=== PATIENT | male | born 1950 | race Caucasian/White ===

== ENCOUNTER 2018-06-11 14:05 | Inpatient (IN) | payer MEDICARE, MEDICAID ==
[~2018-06-11] VITALS: Ht 185.4 cm; Wt 65.1 kg
[2018-06-11] MEDS ORDERED: CLARITIN10 M2 ORAL (14:20)
[2018-06-11] MEDS ORDERED: ACETAMINOPHEN325 M1 ORAL (14:20)
[2018-06-11] MEDS ORDERED: NORVASC5 MG ORAL (14:20)
[2018-06-11] MEDS ORDERED: FLUTICASONE PRO15 GM TOPIC (14:20)
[2018-06-11] MEDS ORDERED: LISINOPRIL10 MG ORAL (14:20)
[2018-06-11] MEDS ORDERED: DONEPEZIL HCL5 M2 ORAL (14:20)
[2018-06-11] MEDS ORDERED: PLAVIX75 MG ORAL (14:20)
[2018-06-11] MEDS ORDERED: ALLOPURINOL100 M1 ORAL (14:20)
[2018-06-11] MEDS ORDERED: LIPITOR20 MG ORAL (14:20)
[2018-06-11] MEDS ORDERED: PEPCID AC20 M2 PO (14:20)
[2018-06-11] MEDS ORDERED: COLACE100 MG/10 ORAL (14:20)
[2018-06-11] MEDS ORDERED: SYNTHROID25 MCG ORAL (14:20)
[2018-06-11] MEDS ORDERED: Albuterol ud Inhalation HHN ONE (14:30)
[2018-06-11] MEDS ORDERED: HYDROcodone/Acetamin 5/325 tab ORAL ONE (14:30)
--- NOTE | 2018-06-11 14:37 | NUR ---
ED Nurse Note: PT BROUGHT IN TO ER TODAY FROM [facility] DUE TO MISSED DIALYSIS. PT STATES HE TYPICALLY GETS DIALYSIS MWF BUT HAS NOT GONE SINCE 06/05/18. PT PRESENTS WITH LEFT UPPER ARM FISTULA. PT STATES HE "FEELS FINE." RR18 @ 98% O2 SATURATION ON RA THOUGH WHEEZING AUSCULTATED IN BILATERAL UPPER AND LOWER LOBES. NO SIGNS OF RESPIRATORY DISTRESS OR RETRACTIONS NOTED.
[2018-06-11 14:39] VITALS: BP 152/76
--- NOTE | 2018-06-11 14:39 | Emergency Room Report ---
History of Present Illness General Chief Complaint: General Complaint Source: Patient Present Illness HPI Patient presents with missed dialysis for one week. Apparently the assisted living facility where he came from cannot arrange for dialysis to occur. Because it has been a week he is sent in for evaluation with labs. Also so that dialysis be performed. The patient doesn't complain about palpitations or weakness. He still makes urine. Denies dysuria. There is also no shortness of breath. He denies chest pain or abdominal pain. No change in bowels. The patient has chronic bronchitis and uses an inhaler. He's not expectorated any phlegm with color or blood. He denies any fevers or chills. The patient also complains about low back pain. This is a chronic problem. Allergies: Coded Allergies: No Known Allergies (Unverified , 06/11/18) Patient History Past Medical History: see triage record Past Surgical History: other - fistula L upper arm Social History: Denies: smoking - prior Social History Narrative b [facility] Reviewed Nursing Documentation: PMH: Agreed; PSxH: Agreed Nursing Documentation-PMH Past Medical History: No History, Except For Hx Hypertension: Yes Hx Asthma: Yes Hx Gastrointestinal Problems: Yes - GERD Hx Dialysis: Yes - HD M/W/F Review of Systems All Other Systems: negative except mentioned in HPI Physical Exam Vital Signs Date Time Temp Pulse Resp B/P (MAP) Pulse Ox O2 Delivery O2 Flow Rate FiO2 06/11/18 14:02 98.1 70 16 157/79 98 Room Air Sp02 EP Interpretation: reviewed, normal General Appearance: well appearing, no apparent distress, GCS 15, thin Head: normocephalic, atraumatic Eyes: bilateral eye PERRL, bilateral eye EOMI, bilateral eye conjunctivae pale , bilateral eye other - exopthalmos ENT: moist mucus membranes Neck: supple Respiratory: lungs clear, normal breath sounds Cardiovascular #1: regular rate, rhythm Cardiovascular #2: 2+ radial (R), 2+ radial (L) - fistula with thrill Gastrointestinal: normal inspection, normal bowel sounds, non tender, no mass, non-distended, scaphoid Musculoskeletal: back normal, gait/station normal, normal range of motion Neurologic: alert, oriented x3, grossly normal Psychiatric: mood/affect normal Skin: normal inspection, warm/dry Medical Decision Making Diagnostic Impression: Primary Impression: ESRD needing dialysis Additional Impressions: Elevated troponin Bronchospasm ER Course Patient presents with one week of missed dialysis. Differential includes electro right imbalance, pulmonary edema, uremia, acute myocardial infarction amongst others. Clinically he is not in heart failure at this time. Evaluation will be with EKG, chest x-ray and labs. The patient will be given a breathing treatment and also [place] for his chronic back pain. EKG with nonspecific ST-T wave changes and left atrial enlargement left ventricular hypertrophy. Chest x-ray with mild reversal of flow suggesting mild pulmonary congestion. Labs significant for potassium of 5.2 and end-stage renal disease. Troponin was elevated. Urinalysis proteinuria. Aspirin and nitroglycerin paste is given to the patient. The patient is improved after breathing treatment and also pain medication. He was evaluated by the admitting physician in the emergency department. Patient needs dialysis urgently. Potassium does not need to be treated emergently at this time. He needs to have repeat troponins and probably cardiac evaluation and echocardiogram. The patient is admitted to telemetry under the care of Dr. Calvo. Laboratory Tests Test 06/11/18 14:51 White Blood Count 4.6 K/UL (4.8-10.8) L Red Blood Count 3.30 M/UL (4.70-6.10) L Hemoglobin 10.9 G/DL (14.2-18.0) L Hematocrit 32.9 % (42.0-52.0) L Mean Corpuscular Volume 100 FL (80-99) H Mean Corpuscular Hemoglobin 32.9 PG (27.0-31.0) H Mean Corpuscular Hemoglobin Concent 33.0 G/DL (32.0-36.0) Red Cell Distribution Width 13.0 % (11.6-14.8) Platelet Count 139 K/UL (150-450) L Mean Platelet Volume 6.0 FL (6.5-10.1) L Neutrophils (%) (Auto) 58.6 % (45.0-75.0) Lymphocytes (%) (Auto) 24.3 % (20.0-45.0) Monocytes (%) (Auto) 9.1 % (1.0-10.0) Eosinophils (%) (Auto) 7.1 % (0.0-3.0) H Basophils (%) (Auto) 0.9 % (0.0-2.0) Prothrombin Time 11.2 SEC (9.30-11.50) Prothrombin Time INR 1.1 (0.9-1.1) PTT 31 SEC (23-33) Urine Color Pale yellow Urine Appearance Clear Urine pH 5 (4.5-8.0) Urine Specific [place] 1.015 (1.005-1.035) Urine Protein 4+ (NEGATIVE) H Urine Glucose (UA) 1+ (NEGATIVE) H Urine Ketones Negative (NEGATIVE) Urine Blood 3+ (NEGATIVE) H Urine Nitrite Negative (NEGATIVE) Urine Bilirubin Negative (NEGATIVE) Urine Urobilinogen Normal MG/DL (0.0-1.0) Urine Leukocyte Esterase Negative (NEGATIVE) Urine RBC 2-4 /HPF (0 - 0) H Urine WBC 0-2 /HPF (0 - 0) Urine Squamous Epithelial Cells None /LPF (NONE/OCC) Urine Bacteria Few /HPF (NONE) Sodium Level 139 MMOL/L (136-145) Potassium Level 5.2 MMOL/L (3.5-5.1) H Chloride Level 106 MMOL/L (98-107) Carbon Dioxide Level 18 MMOL/L (21-32) L Anion Gap 15 mmol/L (5-15) Blood Urea Nitrogen 89 mg/dL (7-18) H Creatinine 6.9 MG/DL (0.55-1.30) H Estimate Glomerular Filtration Rate 8.0 mL/min (>60) Glucose Level 127 MG/DL (74-106) H Calcium Level 9.3 MG/DL (8.5-10.1) Total Bilirubin 0.4 MG/DL (0.2-1.0) Aspartate Amino Transferase (AST) 15 U/L (15-37) Alanine Aminotransferase (ALT) 15 U/L (12-78) Alkaline Phosphatase 144 U/L (46-116) H Total Creatine Kinase 34 U/L (26-308) Troponin I 0.070 ng/mL (0.000-0.056) Pro-B-Type Natriuretic Peptide 15923 pg/mL (0-125) H Total Protein 7.1 G/DL (6.4-8.2) Albumin 3.6 G/DL (3.4-5.0) Globulin 3.5 g/dL Albumin/Globulin Ratio 1.0 (1.0-2.7) EKG Diagnostic Results Rate: normal Rhythm: NSR ST Segments: no acute changes - LAE, NSSTTW changes, LAD, LVH Rhythm Strip Diag. Results EP Interpretation: yes Rhythm: NSR, no PVC's, no ectopy Chest X-Ray Diagnostic Results Chest X-Ray Diagnostic Results : Chest X-Ray Ordered: Yes # of Views/Limited/Complete: 1 View Indication: Other EP Interpretation: Yes Interpretation: no effusion, no pneumothorax, other - pulm htn, slight congestion Impression: Other Electronically Signed by: Electronically signed by Rojas Donohue MD Last Vital Signs Date Time Temp Pulse Resp B/P (MAP) Pulse Ox O2 Delivery O2 Flow Rate FiO2 06/12/18 00:00 97.5 72 20 167/70 (102) 95 06/11/18 21:00 Room Air 06/11/18 14:55 21 Status: improved Disposition: ADMITTED INPATIENT Condition: Serious Rojas Donohue MD Jun 11, 2018 14:39
--- NOTE | 2018-06-11 14:40 | NUR ---
ED Nurse Note: SKIN ASSESSMENT: SKIN INTACT. NO REDNESS OR SKIN BREAKDOWN NOTED.
[2018-06-11] MEDS ORDERED: Albuterol/Ipratropium 3ml neb HHN PRN (15:00)
--- NOTE | 2018-06-11 15:09 | History and Physical ---
History of Present Illness General Date patient seen: Jun 11, 2018 Time patient seen: 15:00 Reason for Hospitalization: General Complaint Present Illness HPI 68 year old man with history of ESRD on M/W/F, anemia of renal failure, hypertension with hypertensive heart disease, Asthma, GERD, mild dementia, depression, schizoaffective disorder who was sent in from [facility] for medical evaluation. The patient has not had dialysis since - per [facility] doctor, arrangements for outpatient HD had not been made during most recent hospitalization. Patient denies any chest pain, palpitations , dyspnea, cough. He still produces urine and was able to provide a urine sample in the ED. Labs are pending at the time of admission. Social History: Current smoker Family history: No premature CAD Allergies: Coded Allergies: No Known Allergies (Unverified , 06/11/18) Medication History Scheduled Allopurinol* (Allopurinol*), 100 MG ORAL DAILY, (Reported) Amlodipine Besylate (Norvasc), 5 MG ORAL DAILY, (Reported) Atorvastatin Calcium* (Lipitor*), 20 MG ORAL BEDTIME, (Reported) Clopidogrel Bisulfate* (Plavix*), 75 MG ORAL DAILY, (Reported) Docusate Sodium (Docusate Sodium), 100 MG ORAL DAILY, (Reported) Donepezil Hcl* (Donepezil Hcl*), 5 MG ORAL DAILY, (Reported) Famotidine (Pepcid Ac), 20 MG PO DAILY, (Reported) Fluticasone Propionate (Fluticasone Propionate), 1 APPLIC TOPIC TWICE A DAY, ( Reported) Levothyroxine Sodium* (Synthroid*), 25 MCG ORAL DAILY, (Reported) Lisinopril* (Lisinopril*), 10 MG ORAL DAILY, (Reported) Loratadine (Claritin), 10 MG ORAL DAILY, (Reported) Scheduled PRN Acetaminophen* (Acetaminophen 325MG Tablet*), 325 MG ORAL Q6H PRN for For Pain, (Reported) Patient History Healthcare decision maker Resuscitation status Advanced Directive on File Review of Systems Constitutional: Denies: chills, fever Eye: Denies: eye pain, blurred vision ENT: Denies: ear pain Respiratory: Denies: cough Cardiovascular: Denies: chest pain, edema, palpitations Gastrointestinal: Denies: abdominal pain, constipation Musculoskeletal: Reports: back pain Skin: Denies: rash Neurological: Denies: headache, numbness, paresthesia, seizure Physical Exam General Appearance: no apparent distress, alert HEENT: atraumatic, anicteric, mucous membranes moist Neck: normal alignment, supple, normal inspection Respiratory/Chest: lungs clear, normal breath sounds, no respiratory distress, no accessory muscle use Cardiovascular/Chest: normal rate, regular rhythm Abdomen: non tender, soft, no organomegaly, no mass Extremities: non-tender, normal inspection 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: engine 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 II-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 grossly normal, no motor/sensory deficits, abnormal gait , alert, oriented x 3 Last 24 Hour Vital Signs Date Time Temp Pulse Resp B/P (MAP) Pulse Ox O2 Delivery O2 Flow Rate FiO2 06/11/18 14:39 72 18 Room Air 06/11/18 14:39 98.2 72 18 152/76 98 Room Air 06/11/18 14:02 98.1 70 16 157/79 98 Room Air Height (Feet): 6 Height (Inches): 1.00 Weight (Pounds): 151 Medications Current Medications Medications (Trade) Dose Ordered Sig/Sobia Route PRN Reason Start Time Stop Time Status Last Admin Dose Admin Acetaminophen (Tylenol) 650 mg Q4H PRN ORAL Mild Pain (Pain Scale 1-3) 06/11/18 15:00 07/11/18 14:59 UNV Albuterol/ Ipratropium (Albuterol/ Ipratropium) 3 ml Q4HRT PRN HHN Shortness of Breath 06/11/18 15:00 06/16/18 14:59 UNV Dextrose (Dextrose 50%) 25 ml Q30M PRN IV Hypoglycemia 06/11/18 15:00 07/11/18 14:59 UNV Dextrose (Dextrose 50%) 50 ml Q30M PRN IV Hypoglycemia 06/11/18 15:00 07/11/18 14:59 UNV Diphenhydramine HCl (Benadryl) 25 mg Q6H PRN ORAL Itching/Pruritis 06/11/18 15:00 07/11/18 14:59 UNV Docusate Sodium (Colace) 100 mg EVERY 12 HOURS ORAL 06/11/18 21:00 07/11/18 20:59 UNV Heparin Sodium (Porcine) (Heparin 5000 units/ml) 5,000 units EVERY 12 HOURS SUBQ 06/11/18 21:00 07/11/18 20:59 UNV Ondansetron HCl (Zofran) 4 mg Q6H PRN IVP Nausea & Vomiting 06/11/18 15:00 07/11/18 14:59 UNV Assessment/Plan Assessment: #ESRD on HD M/W/F, missed last 2 sessions #Hypertensive nephropathy -admit to medical service -await labs including K -check CXR although clinically does not appear to be volume overloaded -Nephrology consulted #Essential HTN #Hypertensive heart disease #Hyperlipidemia -continue outpatient anti-hypertensive regimen including lisinopril and amlodipine -monitor blood pressures #Dementia, mild #Schizophrenia #Depression -continue supportive care -frequent orienting -fall, aspiration precautions -continue Aricept #Hypothyroidism -continue levothyroxine INPATIENT level of care is warranted for this patient because patient is a 60 year old with ESRD who presents with multiple missed HD sessions. I have a high level of concern because patient has not had HD. Patient is at high risk for severe hyperkalemia, uremia. Plan of care/treatment include Urgent HD. Patient care is expected to be greater than 2 midnights. Disposition: Once the patient is stable to leave the hospital, I anticipate the patient will likely be discharged to the following environment: SNF Estimated discharge date: TBD MIPS (Merit-based Incentive Payment System) Applicable CPT: 84357, 10187 CHECK ALL THAT ARE MET: Measure #5 (CHF): All ages. Prescribe DAYRON/ARB upon discharge for patients with left ventricular systolic dysfunction. If not, the reason is clearly documented in the medical chart. Measure #8 (CHF): All ages. Prescribe a beta katey upon discharge for patients with left ventricular systolic dysfunction. If not, the reason is clearly documented in the medical chart. Measure #47: Advance care plan or surrogate decision maker documented in the medical record. Measure #130 The provider has documented, updated, or reviewed the patients current medication list and has documented it in the patients note. Measure #374 (All): Send report to referring provider. Measure #407(Sepsis due to MSSA bacteremia): Age 18+ Patient treated with a beta-lactam antibiotic (Nafcillin, Oxacillin or Cefazolin) as definitive therapy. MEDICAL COMPLEXITY High complexity medical decision making (need 2/3 categories) Problem - need 4 points Acute/new problem with new plan for workup (4 points, 1 max) Acute/new problem without additional workup (3 points, 1 max) Unstable chronic problem actively being managed (2 point each, 2 max) Stable chronic problem actively being managed (1 point each, 2 max) Self-limited/transient process (constipation, muscle ache, etc) (1 point each , 2 max) Data - need 4 points Reviewed labs/imaging studies (1 points, 2 max) Independent review of imaging (EKG, xrays, etc) (2 points, 2 max) Discussed case with consult/other MD/RN (2 points, 2 max) High Risk - qualify if have one of the following: Severe exacerbation of acute problem, acute mental status change, IV narcotics , monitoring drug levels (vancomycin, INR, tacrolimus etc) I spent 70 minutes on this patient's case, and 35 minutes was dedicated to counseling and/or care coordination. Time of note may not reflect time of encounter. David Garcia MD Jun 11, 2018 15:09
--- NOTE | 2018-06-11 15:10 | Diagnostic Imaging Report ---
Indication: Chest pain Technique: XRAY Chest 1v Comparison: None Findings: Heart is enlarged. A cutaneous ICD is noted. There is central pulmonary vascular congestion and slight haziness of the pulmonary vascularity. There is patchy opacification at the right base and a small right pleural effusion. There is no evidence of pneumothorax. Osseous structures demonstrate no acute abnormality. There are mild degenerative changes in the spine. Impression: Cardiomegaly with findings suggestive of mild interstitial edema/CHF. Small pleural effusion. Patchy opacities at the right base thought to be related to compressive atelectasis. Pneumonia should be excluded clinically. Subcutaneous ICD noted.
[2018-06-11 15:14] LABS: APPEARANCE,URINE CLEAR; BILIRUBIN, URINE NEGATIVE (NEGATIVE); COLOR,URINE PALE YELLOW; GLUCOSE, URINE (UA) 1+ (NEGATIVE); KETONES,URINE NEGATIVE (NEGATIVE); LEUKOCYTE ESTERASE ,URINE NEGATIVE (NEGATIVE); NITRITE,URINE NEGATIVE (NEGATIVE); PH,URINE 5 (4.5-8.0); PROTEIN,URINE 4+ (NEGATIVE); UROBILINOGEN,URINE NORMAL MG/DL (0.0-1.0)
[2018-06-11 15:16] LABS: BASOPHILS % (AUTO) 0.9 % (0.0-2.0); EOSINOPHILS % (AUTO) 7.1 % (0.0-3.0); HEMATOCRIT 32.9 % (42.0-52.0); HEMOGLOBIN 10.9 G/DL (14.2-18.0); LYMPHOCYTES % (AUTO) 24.3 % (20.0-45.0); MEAN CORPUSCULAR VOLUME 100 FL (80-99); MONOCYTES % (AUTO) 9.1 % (1.0-10.0); NEUTROPHILS % (AUTO) 58.6 % (45.0-75.0); PLATELET COUNT 139 K/UL (150-450); WHITE BLOOD COUNT 4.6 K/UL (4.8-10.8)
[2018-06-11 15:19] LABS: INR 1.1 (0.9-1.1)
--- NOTE | 2018-06-11 15:25 | Consultation ---
Consult Note Consult Note asked to eval for dialysis management 68 year old man with history of ESRD on M/W/F, anemia of renal failure, hypertension with hypertensive heart disease, Asthma, GERD, mild dementia, depression, schizoaffective disorder who was sent in from [facility] for medical evaluation. The patient has not had dialysis since - per [facility] doctor, arrangements for outpatient HD had not been made during most recent hospitalization. Patient denies any chest pain, palpitations , dyspnea, cough. He still produces urine and was able to provide a urine sample in the ED. Labs are pending at the time of admission. 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
[2018-06-11 15:32] LABS: ANION GAP 15 mmol/L (5-15); BLOOD UREA NITROGEN 89 mg/dL (7-18); CALCIUM 9.3 MG/DL (8.5-10.1); CARBON DIOXIDE 18 MMOL/L (21-32); CHLORIDE 106 MMOL/L (98-107); CREATININE 6.9 MG/DL (0.55-1.30); POTASSIUM 5.2 MMOL/L (3.5-5.1); SODIUM 139 MMOL/L (136-145)
[2018-06-11 15:42] LABS: ALANINE AMINOTRANSFERASE 15 U/L (12-78); ALBUMIN 3.6 G/DL (3.4-5.0); ALKALINE PHOSPHATASE 144 U/L (46-116); ASPARTATE AMINO TRANSFERASE 15 U/L (15-37); BILIRUBIN,TOTAL 0.4 MG/DL (0.2-1.0); CREATINE KINASE 34 U/L (26-308)
[2018-06-11] MEDS ORDERED: Nitroglycerin 2% oint pkt TOPIC ONE (15:45)
[2018-06-11 16:00] VITALS: BP 167/87
--- NOTE | 2018-06-11 16:10 | NUR ---
ED Nurse Note: TELE UNIT CALLED FOR PT TRANSFER. REPORT GIVEN TO KRISTIE QUIÑONES. PT TAKEN UP TO TELE UNIT VIA GURNEY ON [facility] [employer] ALONG WITH ALL BELONGINGS ACCOMPANIED BY PRIMARY RN AND EMT. VSS.
--- NOTE | 2018-06-11 16:25 | NUR ---
NURSE NOTES: Received report from Bety RN from ED. Pt AOX4 and steady on feet. Denies pain. No signs of distress noted. Bed in lowest position and locked. classroom monitor applied. IV in RAC 20G SL intact and patent. Left upper arm fistula noted with thrill/bruit. Pt on Room air. Belonging list reviewed with ED RN. Will continue to plan of care.
--- NOTE | 2018-06-11 16:30 | NUR ---
NURSE NOTES: V/S: 169/88, p 71, R 18, T 97.4, O2 SAT 97% on RA
--- NOTE | 2018-06-11 16:50 | NUR ---
NURSE NOTES: Noted pt smoking in the bathroom locked. Called security and placed cigarette in nursing station. Instructed pt for non-smoking policy in the hospital.
--- NOTE | 2018-06-11 17:50 | NUR ---
NURSE NOTES: Received report from KRISTIE Nava. Patient in resting in bed, A/O x4. Showing no signs of acute distress. Respiration even and non labored on room air. No SOB noted. Patient has fistula on his left arm for dialysis. Call light and bed side table within reach. Bed in lowest position. Bed alarm on and wheels locked. Will continue plan of care.
--- NOTE | 2018-06-11 18:01 | NUR ---
HAND-OFF: Report given to Lacey FLOWERS. Pt remains stable.
--- NOTE | 2018-06-11 18:01 | NUR ---
NURSE NOTES: [facility] dialysis called for scheduling HD on 06/12/17. Spoke to Nixon at [facility] dialysis center
[2018-06-11] MEDS: Docusate 100mg cap ORAL SCH (18:12)
[2018-06-11 18:47] VITALS: BP 150/82
--- NOTE | 2018-06-11 19:13 | NUR ---
HAND-OFF: Report given to KRISTIE Burroughs.
--- NOTE | 2018-06-11 19:20 | NUR ---
NURSE NOTES: received pt in stable condition, no acute distress noted, safety precaution in place, will make rounds to assure pt safety.
[2018-06-11 20:00] VITALS: BP 160/88
[2018-06-11] MEDS: Donepezil 5mg Tab ORAL SCH (20:36)
[2018-06-11] MEDS: Atorvastatin 20mg tab ORAL SCH (20:36)
[2018-06-11] MEDS: Heparin 5000 units/ml inj SUBQ SCH (20:40)
[2018-06-11] MEDS ORDERED: Docusate 100mg cap ORAL SCH (21:00)
--- NOTE | 2018-06-11 23:11 | Initial Psychiatric Evaluation ---
Psychiatry Consultation Psychiatry Consultation Chief Complaint: General Complaint History of Present Illness: 68 year old man with history of schizoaffective disorder, anemia of renal failure, hypertension with hypertensive heart disease, Asthma, GERD, and esrf who was admitted for medical stabilization. the pt pw depressed mood, anhedonia , low energy, insomnia and anxiety. Allergies: Coded Allergies: No Known Allergies (Unverified , 06/11/18) Past Psychiatric History: schizoaffective do depression Medical History: see above Substance Abuse History: none Medication History Scheduled Allopurinol* (Allopurinol*), 100 MG ORAL DAILY, (Reported) Amlodipine Besylate (Norvasc), 5 MG ORAL DAILY, (Reported) Atorvastatin Calcium* (Lipitor*), 20 MG ORAL BEDTIME, (Reported) Clopidogrel Bisulfate* (Plavix*), 75 MG ORAL DAILY, (Reported) Docusate Sodium (Docusate Sodium), 100 MG ORAL DAILY, (Reported) Donepezil Hcl* (Donepezil Hcl*), 5 MG ORAL DAILY, (Reported) Famotidine (Pepcid Ac), 20 MG PO DAILY, (Reported) Fluticasone Propionate (Fluticasone Propionate), 1 APPLIC TOPIC TWICE A DAY, ( Reported) Levothyroxine Sodium* (Synthroid*), 25 MCG ORAL DAILY, (Reported) Lisinopril* (Lisinopril*), 10 MG ORAL DAILY, (Reported) Loratadine (Claritin), 10 MG ORAL DAILY, (Reported) Scheduled PRN Acetaminophen* (Acetaminophen 325MG Tablet*), 325 MG ORAL Q6H PRN for For Pain, (Reported) Patient History History Provided By: Patient, Medical Record, PMD Objective Data Height (Feet): 6 Height (Inches): 1.00 Weight (Pounds): 147 Appearance: well groomed Behavior Mannerisms: good eye contact Affect: constricted Mood: depressed Speech: clear Thought Process: logical Suicidal Ideation: not present Assessment/Plan Problem List: (1) MDD (major depressive disorder), recurrent episode ICD Codes: F33.9 - Major depressive disorder, recurrent, unspecified SNOMED: 195377894 (2) Anxiety disorder ICD Codes: F41.9 - Anxiety disorder, unspecified SNOMED: 951882124 Treatment Plan: Lexapro 10mg po qam Remeron 7.5mg po qhs provide ro/st Farhadi,Pantea MD Jun 11, 2018 23:11
[2018-06-12] VITALS: BP 167/70
--- NOTE | 2018-06-12 00:48 | NUR ---
NURSE NOTES: pt in bed sleeping, no acute distress no c/o discomfort. safety precautions in place. will continue to monitor
[2018-06-12 04:00] VITALS: BP 158/80
[2018-06-12] MEDS: Levothyroxine 25mcg tab ORAL SCH (05:46)
[2018-06-12 06:28] LABS: BASOPHILS % (AUTO) 0.6 % (0.0-2.0); EOSINOPHILS % (AUTO) 9.2 % (0.0-3.0); HEMATOCRIT 30.4 % (42.0-52.0); HEMOGLOBIN 10.1 G/DL (14.2-18.0); LYMPHOCYTES % (AUTO) 20.5 % (20.0-45.0); MEAN CORPUSCULAR VOLUME 99 FL (80-99); MONOCYTES % (AUTO) 6.4 % (1.0-10.0); NEUTROPHILS % (AUTO) 63.3 % (45.0-75.0); PLATELET COUNT 139 K/UL (150-450); RED BLOOD COUNT 3.07 M/UL (4.70-6.10); RED CELL DISTRIBUTION WIDTH 12.7 % (11.6-14.8); WHITE BLOOD COUNT 5.1 K/UL (4.8-10.8)
--- NOTE | 2018-06-12 06:47 | NUR ---
NURSE NOTES: pt reminds in stable condition, no acute distress, no change in condition during my shift, all needs met during my shift. will endorse pt to incoming nurse. Addendum: 06/12/18 at 0700 by Heike Etienne RN remains
[2018-06-12 06:53] LABS: % IRON SATURATION 39 % (15-50); IRON 74 ug/dL (50-175); TOTAL IRON BINDING CAPACITY 191 ug/dL (250-450)
[2018-06-12 06:59] LABS: ALANINE AMINOTRANSFERASE 15 U/L (12-78); ALBUMIN 3.4 G/DL (3.4-5.0); ALBUMIN/GLOBULIN RATIO 1.1 (1.0-2.7); ALKALINE PHOSPHATASE 122 U/L (46-116); ANION GAP 15 mmol/L (5-15); ASPARTATE AMINO TRANSFERASE 15 U/L (15-37); BILIRUBIN,TOTAL 0.4 MG/DL (0.2-1.0); BLOOD UREA NITROGEN 89 mg/dL (7-18); CALCIUM 9.3 MG/DL (8.5-10.1); CARBON DIOXIDE 19 MMOL/L (21-32); CHLORIDE 107 MMOL/L (98-107); CHOLESTEROL 95 MG/DL (< 200); CREATININE 6.7 MG/DL (0.55-1.30); HDL CHOLESTEROL 40 MG/DL (40-60); SODIUM 140 MMOL/L (136-145); TRIGLYCERIDES 72 MG/DL (30-150)
[2018-06-12 07:14] LABS: PHOSPHORUS 4.3 MG/DL (2.5-4.9)
--- NOTE | 2018-06-12 07:25 | NUR ---
NURSE NOTES: Received report from KRISTIE Burroughs. Pt AOX4. No signs of distress noted. Bed in lowest position and locked. desk monitor applied. IV in RAC 20G SL intact and patent. Left upper arm fistula noted with thrill/bruit. Pt on Room air. Will continue to plan of care.
--- NOTE | 2018-06-12 07:28 | NUR ---
HAND-OFF: Report given to KRISTIE Alicea.
[2018-06-12 07:56] VITALS: BP 182/90
[2018-06-12] MEDS: Allopurinol 100mg Tab ORAL SCH (08:14)
[2018-06-12] MEDS: Lisinopril 10mg tab ORAL SCH (08:14)
[2018-06-12] MEDS: Docusate 100mg cap ORAL SCH ×3 (08:14→17:17)
[2018-06-12] MEDS ORDERED: Donepezil 5mg Tab ORAL SCH (09:00)
[2018-06-12] MEDS ORDERED: Lisinopril 10mg tab ORAL SCH (09:00)
[2018-06-12] MEDS: Heparin 5000 units/ml inj SUBQ SCH ×2 (09:00→21:06)
--- NOTE | 2018-06-12 11:57 | NUR ---
CASE MANAGEMENT:REVIEW 68 YR OLD MALE BIBA FROM [facility] CC: MISSED DIALYSIS SI: ESRD.DIALYSIS BRONCHOSPASM. ELEVATED TROPONIN 98.0 70 16 157/79 98% ON RA PLT-139 K+5.2 BUN+89 TROPONIN(+) 0.070 IS: NORCO PO ALBUTEROL HHN ASA PO SCHEDULE DIALYSIS : TO TELEMETRY
[2018-06-12 12:00] VITALS: BP 149/76
--- NOTE | 2018-06-12 12:07 | General Progress Note ---
Assessment/Plan Assessment: #ESRD on HD M/W/F, last session on 06/05 #Hypertensive nephropathy #Hyperkalemia, present on admission #Metabolic acidosis, present on admission -continue inpatient level of care -plan for HD today, spoke with Dr. Huynh -continue to monitor BMP -continue to monitor mentation for evidence of uremia -continue to monitor for evidence of fluid overload -Spoke to bilingual case manager about patient's need for outpatient HD to be arranged #Essential HTN, uncontrolled likely due to missed HD #Hypertensive heart disease #Hyperlipidemia -continue outpatient anti-hypertensive regimen including lisinopril and amlodipine -continue to monitor blood pressure #Anemia of ESRD, stable H&H -continue to monitor CBC -not a candidate for ESAs at this time #Dementia, mild #Schizophrenia #Depression -continue supportive care -frequent orienting -fall, aspiration precautions -continue Aricept -Psychiatry eval appreciated #Hypothyroidism -continue levothyroxine -check free T4 in AM INPATIENT level of care is warranted for this patient because patient is a 60 year old with ESRD who presents with multiple missed HD sessions. I have a high level of concern because patient has not had HD. Patient is at high risk for severe hyperkalemia, uremia. Plan of care/treatment include Urgent HD. Patient care is expected to be greater than 2 midnights. Disposition: Once the patient is stable to leave the hospital, I anticipate the patient will likely be discharged to the following environment: SNF Estimated discharge date: TB MIPS (Merit-based Incentive Payment System) Applicable CPT: 30431, 69584 CHECK ALL THAT ARE MET: Measure #5 (CHF): All ages. Prescribe DAYRON/ARB upon discharge for patients with left ventricular systolic dysfunction. If not, the reason is clearly documented in the medical chart. Measure #8 (CHF): All ages. Prescribe a beta katey upon discharge for patients with left ventricular systolic dysfunction. If not, the reason is clearly documented in the medical chart. Measure #47: Advance care plan or surrogate decision maker documented in the medical record. Measure #130 The provider has documented, updated, or reviewed the patients current medication list and has documented it in the patients note. Measure #374 (All): Send report to referring provider. Measure #407(Sepsis due to MSSA bacteremia): Age 18+ Patient treated with a beta-lactam antibiotic (Nafcillin, Oxacillin or Cefazolin) as definitive therapy. MEDICAL COMPLEXITY High complexity medical decision making (need 2/3 categories) Problem - need 4 points Acute/new problem with new plan for workup (4 points, 1 max) Acute/new problem without additional workup (3 points, 1 max) Unstable chronic problem actively being managed (2 point each, 2 max) Stable chronic problem actively being managed (1 point each, 2 max) Self-limited/transient process (constipation, muscle ache, etc) (1 point each , 2 max) Data - need 4 points Reviewed labs/imaging studies (1 points, 2 max) Independent review of imaging (EKG, xrays, etc) (2 points, 2 max) Discussed case with consult/other MD/RN (2 points, 2 max) High Risk - qualify if have one of the following: Severe exacerbation of acute problem, acute mental status change, IV narcotics , monitoring drug levels (vancomycin, INR, tacrolimus etc) I spent 70 minutes on this patient's case, and 35 minutes was dedicated to counseling and/or care coordination. Time of note may not reflect time of encounter. Subjective Date patient seen: Jun 12, 2018 Time patient seen: 12:00 Constitutional: Denies: chills, fever Cardiovascular: Denies: chest pain Respiratory: Denies: cough Gastrointestinal/Abdominal: Denies: abdomen distended, abdominal pain, nausea Allergies: Coded Allergies: No Known Allergies (Unverified , 06/11/18) Subjective Medicine follow up for ESRD, metabolic acidosis, hyperkalemia, uncontrolled HTN. Patent awaiting HD, planned for today Objective Last 24 Hour Vital Signs Date Time Temp Pulse Resp B/P (MAP) Pulse Ox O2 Delivery O2 Flow Rate FiO2 06/12/18 12:00 97.2 66 20 149/76 (100) 97 06/12/18 09:00 Room Air 06/12/18 09:00 Room Air 06/12/18 08:45 97.9 06/12/18 08:14 182/90 06/12/18 08:13 76 182/90 06/12/18 08:02 90 06/12/18 07:56 97.9 76 20 182/90 (120) 95 06/12/18 04:00 69 06/12/18 04:00 97.5 72 20 158/80 (106) 97 06/12/18 00:00 64 06/12/18 00:00 97.5 72 20 167/70 (102) 95 06/11/18 21:00 Room Air 06/11/18 21:00 Room Air 06/11/18 20:00 57 06/11/18 20:00 97.4 62 20 160/88 (112) 99 06/11/18 18:47 150/82 (104) 06/11/18 18:13 76 152/66 06/11/18 17:06 62 06/11/18 16:09 98.3 76 17 152/66 99 Room Air 06/11/18 16:03 155/63 06/11/18 16:00 98.0 71 20 167/87 (113) 97 06/11/18 14:55 80 18 100 Room Air 21 06/11/18 14:47 36 06/11/18 14:47 78 18 100 Room Air 21 06/11/18 14:39 72 18 Room Air 06/11/18 14:39 98.2 72 18 152/76 98 Room Air 06/11/18 14:02 98.1 70 16 157/79 98 Room Air Intake and Output 06/11/18 06/12/18 19:00 07:00 Intake Total 240 ml Output Total 300 ml Balance -60 ml Intake Oral 240 ml Output Urine Total 300 ml # Voids 1 Laboratory Tests 06/11/18 14:51: White Blood Count 4.6L, Red Blood Count 3.30L, Hemoglobin 10.9L, Hematocrit 32.9L, Mean Corpuscular Volume 100H, Mean Corpuscular Hemoglobin 32.9H, Mean Corpuscular Hemoglobin Concent 33.0, Red Cell Distribution Width 13.0, Platelet Count 139L, Mean Platelet Volume 6.0L, Neutrophils (%) (Auto) 58.6, Lymphocytes (%) (Auto) 24.3, Monocytes (%) (Auto) 9.1, Eosinophils (%) (Auto) 7.1H, Basophils (%) (Auto) 0.9, Prothrombin Time 11.2, Prothromb Time International Ratio 1.1, Activated Partial Thromboplast Time 31, Urine Color Pale yellow, Urine Appearance Clear, Urine pH 5, Urine Specific [place] 1.015, Urine Protein 4+H, Urine Glucose (UA) 1+H, Urine Ketones Negative, Urine Blood 3+H, Urine Nitrite Negative, Urine Bilirubin Negative, Urine Urobilinogen Normal, Urine Leukocyte Esterase Negative, Urine RBC 2-4H, Urine WBC 0-2, Urine Squamous Epithelial Cells None, Urine Bacteria Few, Sodium Level 139, Potassium Level 5.2H, Chloride Level 106, Carbon Dioxide Level 18L, Anion Gap 15, Blood Urea Nitrogen 89H, Creatinine 6.9H, Estimat Glomerular Filtration Rate 8.0, Glucose Level 127H, Calcium Level 9.3, Total Bilirubin 0.4, Aspartate Amino Transf (AST/ SGOT) 15, Alanine Aminotransferase (ALT/SGPT) 15, Alkaline Phosphatase 144H, Total Creatine Kinase 34, Troponin I 0.070H, Pro-B-Type Natriuretic Peptide 70956R, Total Protein 7.1, Albumin 3.6, Globulin 3.5, Albumin/Globulin Ratio 1.0 06/12/18 05:15: White Blood Count 5.1, Red Blood Count 3.07L, Hemoglobin 10.1L, Hematocrit 30.4L , Mean Corpuscular Volume 99, Mean Corpuscular Hemoglobin 33.1H, Mean Corpuscular Hemoglobin Concent 33.3, Red Cell Distribution Width 12.7, Platelet Count 139L, Mean Platelet Volume 5.7L, Neutrophils (%) (Auto) 63.3, Lymphocytes (%) (Auto) 20.5, Monocytes (%) (Auto) 6.4, Eosinophils (%) (Auto) 9.2H, Basophils (%) (Auto) 0.6, Sodium Level 140, Potassium Level 5.0, Chloride Level 107, Carbon Dioxide Level 19L, Anion Gap 15, Blood Urea Nitrogen 89H, Creatinine 6.7H, Estimat Glomerular Filtration Rate 8.2, Glucose Level 70L, Calcium Level 9.3, Total Bilirubin 0.4, Aspartate Amino Transf (AST/SGOT) 15, Alanine Aminotransferase (ALT/SGPT) 15, Alkaline Phosphatase 122H, Pro-B-Type Natriuretic Peptide 29438C, Total Protein 6.6, Albumin 3.4, Globulin 3.2, Albumin/Globulin Ratio 1.1, Uric Acid 6.4, Phosphorus Level 4.3, Magnesium Level 2.2, Iron Level 74, Total Iron Binding Capacity 191L, Percent Iron Saturation 39, Unsaturated Iron Binding 117, Ferritin 465H, Gamma Glutamyl Transpeptidase 12, C-Reactive Protein, Quantitative 2.5H, Triglycerides Level 72 , Cholesterol Level 95, LDL Cholesterol 44, HDL Cholesterol 40, Cholesterol/HDL Ratio 2.4L, Vitamin B12 Level 342, Folate 17.1, Thyroid Stimulating Hormone (TSH ) 6.702H Height (Feet): 6 Height (Inches): 1.00 Weight (Pounds): 147 General Appearance: no apparent distress, alert EENT: normal ENT inspection Neck: normal alignment, normal inspection Cardiovascular: normal peripheral pulses, normal rate, regular rhythm Respiratory/Chest: chest wall non-tender, lungs clear, normal breath sounds Abdomen: non tender, soft, no organomegaly 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
--- NOTE | 2018-06-12 12:43 | Consultation ---
History of Present Illness General Chief Complaint: General Complaint Present Illness Allergies: Coded Allergies: No Known Allergies (Unverified , 06/11/18) Medication History Scheduled Allopurinol* (Allopurinol*), 100 MG ORAL DAILY, (Reported) Amlodipine Besylate (Norvasc), 5 MG ORAL DAILY, (Reported) Atorvastatin Calcium* (Lipitor*), 20 MG ORAL BEDTIME, (Reported) Clopidogrel Bisulfate* (Plavix*), 75 MG ORAL DAILY, (Reported) Docusate Sodium (Docusate Sodium), 100 MG ORAL DAILY, (Reported) Donepezil Hcl* (Donepezil Hcl*), 5 MG ORAL DAILY, (Reported) Famotidine (Pepcid Ac), 20 MG PO DAILY, (Reported) Fluticasone Propionate (Fluticasone Propionate), 1 APPLIC TOPIC TWICE A DAY, ( Reported) Levothyroxine Sodium* (Synthroid*), 25 MCG ORAL DAILY, (Reported) Lisinopril* (Lisinopril*), 10 MG ORAL DAILY, (Reported) Loratadine (Claritin), 10 MG ORAL DAILY, (Reported) Scheduled PRN Acetaminophen* (Acetaminophen 325MG Tablet*), 325 MG ORAL Q6H PRN for For Pain, (Reported) Patient History Healthcare decision maker N Resuscitation status Advanced Directive on File Physical Exam Last 24 Hour Vital Signs Date Time Temp Pulse Resp B/P (MAP) Pulse Ox O2 Delivery O2 Flow Rate FiO2 06/12/18 12:00 97.2 66 20 149/76 (100) 97 06/12/18 09:00 Room Air 06/12/18 09:00 Room Air 06/12/18 08:45 97.9 06/12/18 08:14 182/90 06/12/18 08:13 76 182/90 06/12/18 08:02 90 06/12/18 07:56 97.9 76 20 182/90 (120) 95 06/12/18 04:00 69 06/12/18 04:00 97.5 72 20 158/80 (106) 97 06/12/18 00:00 64 06/12/18 00:00 97.5 72 20 167/70 (102) 95 06/11/18 21:00 Room Air 06/11/18 21:00 Room Air 4/18/19 20:00 57 06/11/18 20:00 97.4 62 20 160/88 (112) 99 06/11/18 18:47 150/82 (104) 06/11/18 18:13 76 152/66 06/11/18 17:06 62 06/11/18 16:09 98.3 76 17 152/66 99 Room Air 06/11/18 16:03 155/63 06/11/18 16:00 98.0 71 20 167/87 (113) 97 06/11/18 14:55 80 18 100 Room Air 21 06/11/18 14:47 36 06/11/18 14:47 78 18 100 Room Air 21 06/11/18 14:39 72 18 Room Air 06/11/18 14:39 98.2 72 18 152/76 98 Room Air 06/11/18 14:02 98.1 70 16 157/79 98 Room Air Intake and Output 06/11/18 06/12/18 19:00 07:00 Intake Total 240 ml Output Total 300 ml Balance -60 ml Intake Oral 240 ml Output Urine Total 300 ml # Voids 1 Laboratory Tests Test 06/11/18 14:51 06/12/18 05:15 White Blood Count 4.6 K/UL (4.8-10.8) L 5.1 K/UL (4.8-10.8) Red Blood Count 3.30 M/UL (4.70-6.10) L 3.07 M/UL (4.70-6.10) L Hemoglobin 10.9 G/DL (14.2-18.0) L 10.1 G/DL (14.2-18.0) L Hematocrit 32.9 % (42.0-52.0) L 30.4 % (42.0-52.0) L Mean Corpuscular Volume 100 FL (80-99) H 99 FL (80-99) Mean Corpuscular Hemoglobin 32.9 PG (27.0-31.0) H 33.1 PG (27.0-31.0) H Mean Corpuscular Hemoglobin Concent 33.0 G/DL (32.0-36.0) 33.3 G/DL (32.0-36.0) Red Cell Distribution Width 13.0 % (11.6-14.8) 12.7 % (11.6-14.8) Platelet Count 139 K/UL (150-450) L 139 K/UL (150-450) L Mean Platelet Volume 6.0 FL (6.5-10.1) L 5.7 FL (6.5-10.1) L Neutrophils (%) (Auto) 58.6 % (45.0-75.0) 63.3 % (45.0-75.0) Lymphocytes (%) (Auto) 24.3 % (20.0-45.0) 20.5 % (20.0-45.0) Monocytes (%) (Auto) 9.1 % (1.0-10.0) 6.4 % (1.0-10.0) Eosinophils (%) (Auto) 7.1 % (0.0-3.0) H 9.2 % (0.0-3.0) H Basophils (%) (Auto) 0.9 % (0.0-2.0) 0.6 % (0.0-2.0) Prothrombin Time 11.2 SEC (9.30-11.50) Prothromb Time International Ratio 1.1 (0.9-1.1) Activated Partial Thromboplast Time 31 SEC (23-33) Urine Color Pale yellow Urine Appearance Clear Urine pH 5 (4.5-8.0) Urine Specific [place] 1.015 (1.005-1.035) Urine Protein 4+ (NEGATIVE) H Urine Glucose (UA) 1+ (NEGATIVE) H Urine Ketones Negative (NEGATIVE) Urine Blood 3+ (NEGATIVE) H Urine Nitrite Negative (NEGATIVE) Urine Bilirubin Negative (NEGATIVE) Urine Urobilinogen Normal MG/DL (0.0-1.0) Urine Leukocyte Esterase Negative (NEGATIVE) Urine RBC 2-4 /HPF (0 - 0) H Urine WBC 0-2 /HPF (0 - 0) Urine Squamous Epithelial Cells None /LPF (NONE/OCC) Urine Bacteria Few /HPF (NONE) Sodium Level 139 MMOL/L (136-145) 140 MMOL/L (136-145) Potassium Level 5.2 MMOL/L (3.5-5.1) H 5.0 MMOL/L (3.5-5.1) Chloride Level 106 MMOL/L (98-107) 107 MMOL/L (98-107) Carbon Dioxide Level 18 MMOL/L (21-32) L 19 MMOL/L (21-32) L Anion Gap 15 mmol/L (5-15) 15 mmol/L (5-15) Blood Urea Nitrogen 89 mg/dL (7-18) H 89 mg/dL (7-18) H Creatinine 6.9 MG/DL (0.55-1.30) H 6.7 MG/DL (0.55-1.30) H Estimat Glomerular Filtration Rate 8.0 mL/min (>60) 8.2 mL/min (>60) Glucose Level 127 MG/DL (74-106) H 70 MG/DL (74-106) L Calcium Level 9.3 MG/DL (8.5-10.1) 9.3 MG/DL (8.5-10.1) Total Bilirubin 0.4 MG/DL (0.2-1.0) 0.4 MG/DL (0.2-1.0) Aspartate Amino Transf (AST/SGOT) 15 U/L (15-37) 15 U/L (15-37) Alanine Aminotransferase (ALT/SGPT) 15 U/L (12-78) 15 U/L (12-78) Alkaline Phosphatase 144 U/L (46-116) H 122 U/L (46-116) H Total Creatine Kinase 34 U/L (26-308) Troponin I 0.070 ng/mL (0.000-0.056) Pro-B-Type Natriuretic Peptide 34000 pg/mL (0-125) H 25246 pg/mL (0-125) H Total Protein 7.1 G/DL (6.4-8.2) 6.6 G/DL (6.4-8.2) Albumin 3.6 G/DL (3.4-5.0) 3.4 G/DL (3.4-5.0) Globulin 3.5 g/dL 3.2 g/dL Albumin/Globulin Ratio 1.0 (1.0-2.7) 1.1 (1.0-2.7) Uric Acid 6.4 MG/DL (2.6-7.2) Phosphorus Level 4.3 MG/DL (2.5-4.9) Magnesium Level 2.2 MG/DL (1.8-2.4) Iron Level 74 ug/dL (50-175) Total Iron Binding Capacity 191 ug/dL (250-450) L Percent Iron Saturation 39 % (15-50) Unsaturated Iron Binding 117 ug/dL (112-346) Ferritin 465 NG/ML (8-388) H Gamma Glutamyl Transpeptidase 12 U/L (5-85) C-Reactive Protein, Quantitative 2.5 mg/dL (0.00-0.90) H Triglycerides Level 72 MG/DL (30-150) Cholesterol Level 95 MG/DL (< 200) LDL Cholesterol 44 mg/dL (<100) HDL Cholesterol 40 MG/DL (40-60) Cholesterol/HDL Ratio 2.4 (3.3-4.4) L Vitamin B12 Level 342 PG/ML (193-986) Folate 17.1 NG/ML (8.6-58.9) Thyroid Stimulating Hormone (TSH) 6.702 uiU/mL (0.358-3.740) Microbiology Date/Time Source Procedure Growth Status 06/11/18 14:51 Rectum Received Height (Feet): 6 Height (Inches): 1.00 Weight (Pounds): 147 Medications Current Medications Medications (Trade) Dose Ordered Sig/Sobia Route PRN Reason Start Time Stop Time Status Last Admin Dose Admin Acetaminophen (Tylenol) 650 mg Q4H PRN ORAL Mild Pain (Pain Scale 1-3) 06/11/18 15:00 07/11/18 14:59 06/12/18 08:15 Albuterol/ Ipratropium (Albuterol/ Ipratropium) 3 ml Q4H PRN HHN Shortness of Breath 06/11/18 15:00 06/16/18 14:59 Allopurinol (Zyloprim) 100 mg DAILY ORAL 06/12/18 09:00 07/12/18 08:59 06/12/18 08:14 Amlodipine Besylate (Norvasc) 5 mg BID ORAL 06/11/18 18:00 07/12/18 08:59 06/12/18 08:13 Atorvastatin Calcium (Lipitor) 20 mg BEDTIME ORAL 06/11/18 21:00 07/11/18 20:59 06/11/18 20:36 Clopidogrel Bisulfate (Plavix) 75 mg DAILY ORAL 06/12/18 09:00 07/12/18 08:59 06/12/18 08:13 Dextrose (Dextrose 50%) 25 ml Q30M PRN IV Hypoglycemia 06/11/18 15:00 07/11/18 14:59 Dextrose (Dextrose 50%) 50 ml Q30M PRN IV Hypoglycemia 06/11/18 15:00 07/11/18 14:59 Diphenhydramine HCl (Benadryl) 25 mg Q6H PRN ORAL Itching/Pruritis 06/11/18 15:00 07/11/18 14:59 Docusate Sodium (Colace) 100 mg TID ORAL 06/11/18 18:00 07/11/18 20:59 06/12/18 08:14 Donepezil HCl (Aricept) 5 mg QHS ORAL 06/11/18 21:00 07/12/18 08:59 06/11/18 20:36 Heparin Sodium (Porcine) (Heparin 5000 units/ml) 5,000 units EVERY 12 HOURS SUBQ 06/11/18 21:00 07/11/18 20:59 06/11/18 20:40 Levothyroxine Sodium (Synthroid) 25 mcg Q24H ORAL 06/12/18 06:30 07/12/18 06:29 06/12/18 05:46 Lisinopril (Zestril) 10 mg DAILY ORAL 06/12/18 09:00 07/12/18 08:59 06/12/18 08:14 Ondansetron HCl (Zofran) 4 mg Q6H PRN IVP Nausea & Vomiting 06/11/18 15:00 07/11/18 14:59 Pantoprazole (Protonix) 40 mg DAILY ORAL 06/11/18 17:15 07/11/18 17:14 06/12/18 08:14 Assessment/Plan Assessment: Hematology Consultation REQ MD: Iker Garcia DOS: 05/12/18 RFC: Anemia eval Reason for Hospitalization: Med eval HPI 68 year old man with history of ESRD on M/W/F, anemia of renal failure, hypertension with hypertensive heart disease, Asthma, GERD, mild dementia, depression, schizoaffective disorder who was sent in from [facility] for medical evaluation. The patient has not had dialysis since - per [facility] doctor, arrangements for outpatient HD had not been made during most recent hospitalization. Patient denies any chest pain, palpitations , dyspnea, cough. He still produces urine and was able to provide a urine sample in the ED. Labs reviewed and c/w acd, ferritin and tibc values reviewed as well. Social History: Current smoker Family history: No premature CAD Coded Allergies: No Known Allergies (Unverified , 06/11/18) Meds Allopurinol* (Allopurinol*), 100 MG ORAL DAILY, (Reported) Amlodipine Besylate (Norvasc), 5 MG ORAL DAILY, (Reported) Atorvastatin Calcium* (Lipitor*), 20 MG ORAL BEDTIME, (Reported) Clopidogrel Bisulfate* (Plavix*), 75 MG ORAL DAILY, (Reported) Docusate Sodium (Docusate Sodium), 100 MG ORAL DAILY, (Reported) Donepezil Hcl* (Donepezil Hcl*), 5 MG ORAL DAILY, (Reported) Famotidine (Pepcid Ac), 20 MG PO DAILY, (Reported) Fluticasone Propionate (Fluticasone Propionate), 1 APPLIC TOPIC TWICE A DAY, ( Reported) Levothyroxine Sodium* (Synthroid*), 25 MCG ORAL DAILY, (Reported) Lisinopril* (Lisinopril*), 10 MG ORAL DAILY, (Reported) Loratadine (Claritin), 10 MG ORAL DAILY, (Reported) Scheduled PRN Acetaminophen* (Acetaminophen 325MG Tablet*), 325 MG ORAL Q6H PRN for For Pain, (Reported) Patient History Healthcare decision maker Resuscitation status Advanced Directive on File ROS Constitutional: Denies: chills, fever Eye: Denies: eye pain, blurred vision ENT: Denies: ear pain Respiratory: Denies: cough Cardiovascular: Denies: chest pain, edema, palpitations Gastrointestinal: Denies: abdominal pain, constipation Musculoskeletal: Reports: back pain Skin: Denies: rash Neurological: Denies: headache, numbness, paresthesia PE General Appearance: no apparent distress, alert HEENT: atraumatic, anicteric, mucous membranes moist Neck: normal alignment, supple, normal inspection Respiratory/Chest: lungs clear, normal breath sounds Cardiovascular/Chest: normal rate, regular rhythm Abdomen: non tender, soft, no organomegaly, no mass Extremities: non-tender, normal inspection 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, no motor/sensory deficits Last 24 Hour Vital Signs Date Time Temp Pulse Resp B/P (MAP) Pulse Ox O2 Delivery O2 Flow Rate FiO2 06/12/18 12:00 97.2 66 20 149/76 (100) 97 06/12/18 09:00 Room Air 06/12/18 09:00 Room Air 06/12/18 08:45 97.9 06/12/18 08:14 182/90 06/12/18 08:13 76 182/90 06/12/18 08:02 90 06/12/18 07:56 97.9 76 20 182/90 (120) 95 06/12/18 04:00 69 06/12/18 04:00 97.5 72 20 158/80 (106) 97 06/12/18 00:00 64 06/12/18 00:00 97.5 72 20 167/70 (102) 95 06/11/18 21:00 Room Air 06/11/18 21:00 Room Air 06/11/18 20:00 57 06/11/18 20:00 97.4 62 20 160/88 (112) 99 06/11/18 18:47 150/82 (104) 06/11/18 18:13 76 152/66 06/11/18 17:06 62 06/11/18 16:09 98.3 76 17 152/66 99 Room Air 06/11/18 16:03 155/63 06/11/18 16:00 98.0 71 20 167/87 (113) 97 06/11/18 14:55 80 18 100 Room Air 21 06/11/18 14:47 36 06/11/18 14:47 78 18 100 Room Air 21 06/11/18 14:39 72 18 Room Air 06/11/18 14:39 98.2 72 18 152/76 98 Room Air 06/11/18 14:02 98.1 70 16 157/79 98 Room Air Height (Inches): 1.00 Weight (Pounds): 151 Medications Current Medications Medications (Trade) Dose Ordered Sig/Sobia Route PRN Reason Start Time Stop Time Status Last Admin Dose Admin Acetaminophen (Tylenol) 650 mg Q4H PRN ORAL Mild Pain (Pain Scale 1-3) 06/11/18 15:00 07/11/18 14:59 UNV Albuterol/ Ipratropium (Albuterol/ Ipratropium) 3 ml Q4HRT PRN HHN Shortness of Breath 06/11/18 15:00 06/16/18 14:59 UNV Dextrose (Dextrose 50%) 25 ml Q30M PRN IV Hypoglycemia 06/11/18 15:00 07/11/18 14:59 UNV Dextrose (Dextrose 50%) 50 ml Q30M PRN IV Hypoglycemia 06/11/18 15:00 07/11/18 14:59 UNV Diphenhydramine HCl (Benadryl) 25 mg Q6H PRN ORAL Itching/Pruritis 06/11/18 15:00 07/11/18 14:59 UNV Docusate Sodium (Colace) 100 mg EVERY 12 HOURS ORAL 06/11/18 21:00 07/11/18 20:59 UNV Heparin Sodium (Porcine) (Heparin 5000 units/ml) 5,000 units EVERY 12 HOURS SUBQ 06/11/18 21:00 07/11/18 20:59 UNV Ondansetron HCl (Zofran) 4 mg Q6H PRN IVP Nausea & Vomiting 06/11/18 15:00 07/11/18 14:59 UNV Assessment/Recs: # Anemia of chronic disease due to underlying chronic medical issues, multifactorial --> Anemia workup has been ordered, rule out gi bleed --> No evidence of hemolysis is noted, peripheral smear has been reviewed. --> Hgb goal >7. Transfuse prn. --> Epogen or iron at this time is not particularly indicated --> Medications have been reviewed --> evaluate with Gi team prn --> transfuse if hgb is < 7 (will trend CBC daily) --> low threshold for gi evaluation in case has occult + # ESRD on HD M/W/F, missed last 2 sessions --> Anemia panel has been reviewed and feritin is elev --> hold off on IRON and hold off on EPO unless hgb downtrends to less than 10 # Hypertensive nephropathy --> as per renal --> acei as needed per renal, bp control # Essential HTN --> cards prn, sbp goal <140 # Hyperlipidemia --> continue outpatient anti-hypertensive regimen including lisinopril and amlodipine --> monitor blood pressures # Dementia, mild # Schizophrenia --> per psych # DVT ppx with heparin is also on plavix The timing of this note does not necessarily reflect the time of the patient was seen. Greatly appreciate consultation! Shaquille Brown MD Jun 12, 2018 12:43
--- NOTE | 2018-06-12 13:36 | Cardiology Report ---
APPROVED REPORT EKG Measurement Heart [id number] ID [id number] Normal sinus rhythm Possible Left atrial enlargement Left axis deviation Left ventricular hypertrophy with QRS widening Cannot rule out Septal infarct, age undetermined Abnormal ECG
--- NOTE | 2018-06-12 13:38 | Nephrology Progress Note ---
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 anemia of ckd hypertensive kidney disease high cholestrol hypothyroidism psych disease Plan arrange for HD ,for today Renal diet per orders Subjective ROS Limited/Unobtainable: No Constitutional: Reports: malaise Objective Objective Last 24 Hour Vital Signs Date Time Temp Pulse Resp B/P (MAP) Pulse Ox O2 Delivery O2 Flow Rate FiO2 06/12/18 12:00 97.2 66 20 149/76 (100) 97 06/12/18 11:43 67 06/12/18 09:00 Room Air 06/12/18 09:00 Room Air 06/12/18 08:45 97.9 06/12/18 08:14 182/90 06/12/18 08:13 76 182/90 06/12/18 08:02 90 06/12/18 07:56 97.9 76 20 182/90 (120) 95 06/12/18 04:00 69 06/12/18 04:00 97.5 72 20 158/80 (106) 97 06/12/18 00:00 64 06/12/18 00:00 97.5 72 20 167/70 (102) 95 06/11/18 21:00 Room Air 06/11/18 21:00 Room Air 06/11/18 20:00 57 06/11/18 20:00 97.4 62 20 160/88 (112) 99 06/11/18 18:47 150/82 (104) 06/11/18 18:13 76 152/66 06/11/18 17:06 62 06/11/18 16:09 98.3 76 17 152/66 99 Room Air 06/11/18 16:03 155/63 06/11/18 16:00 98.0 71 20 167/87 (113) 97 06/11/18 14:55 80 18 100 Room Air 21 06/11/18 14:47 36 06/11/18 14:47 78 18 100 Room Air 21 06/11/18 14:39 72 18 Room Air 06/11/18 14:39 98.2 72 18 152/76 98 Room Air 06/11/18 14:02 98.1 70 16 157/79 98 Room Air Intake and Output 06/11/18 06/12/18 19:00 07:00 Intake Total 240 ml Output Total 300 ml Balance -60 ml Intake Oral 240 ml Output Urine Total 300 ml # Voids 1 Current Medications Medications (Trade) Dose Ordered Sig/Sobia Route PRN Reason Start Time Stop Time Status Last Admin Dose Admin Acetaminophen (Tylenol) 650 mg Q4H PRN ORAL Mild Pain (Pain Scale 1-3) 06/11/18 15:00 07/11/18 14:59 06/12/18 08:15 Albuterol/ Ipratropium (Albuterol/ Ipratropium) 3 ml Q4H PRN HHN Shortness of Breath 06/11/18 15:00 06/16/18 14:59 Allopurinol (Zyloprim) 100 mg DAILY ORAL 06/12/18 09:00 07/12/18 08:59 06/12/18 08:14 Amlodipine Besylate (Norvasc) 5 mg BID ORAL 06/11/18 18:00 07/12/18 08:59 06/12/18 08:13 Atorvastatin Calcium (Lipitor) 20 mg BEDTIME ORAL 06/11/18 21:00 07/11/18 20:59 06/11/18 20:36 Clopidogrel Bisulfate (Plavix) 75 mg DAILY ORAL 06/12/18 09:00 07/12/18 08:59 06/12/18 08:13 Dextrose (Dextrose 50%) 25 ml Q30M PRN IV Hypoglycemia 06/11/18 15:00 07/11/18 14:59 Dextrose (Dextrose 50%) 50 ml Q30M PRN IV Hypoglycemia 06/11/18 15:00 07/11/18 14:59 Diphenhydramine HCl (Benadryl) 25 mg Q6H PRN ORAL Itching/Pruritis 06/11/18 15:00 07/11/18 14:59 Docusate Sodium (Colace) 100 mg TID ORAL 06/11/18 18:00 07/11/18 20:59 06/12/18 13:34 Donepezil HCl (Aricept) 5 mg QHS ORAL 06/11/18 21:00 07/12/18 08:59 06/11/18 20:36 Escitalopram Oxalate (Lexapro) 10 mg DAILY ORAL 4/19/19 13:00 07/12/18 12:59 06/12/18 13:34 Heparin Sodium (Porcine) (Heparin 5000 units/ml) 5,000 units EVERY 12 HOURS SUBQ 06/11/18 21:00 07/11/18 20:59 06/11/18 20:40 Levothyroxine Sodium (Synthroid) 25 mcg Q24H ORAL 06/12/18 06:30 07/12/18 06:29 06/12/18 05:46 Lisinopril (Zestril) 10 mg DAILY ORAL 06/12/18 09:00 07/12/18 08:59 06/12/18 08:14 Mirtazapine (Remeron) 7.5 mg BEDTIME ORAL 06/12/18 21:00 07/12/18 20:59 Ondansetron HCl (Zofran) 4 mg Q6H PRN IVP Nausea & Vomiting 06/11/18 15:00 07/11/18 14:59 Pantoprazole (Protonix) 40 mg DAILY ORAL 06/11/18 17:15 07/11/18 17:14 06/12/18 08:14 Laboratory Tests 06/11/18 14:51: White Blood Count 4.6L, Red Blood Count 3.30L, Hemoglobin 10.9L, Hematocrit 32.9L, Mean Corpuscular Volume 100H, Mean Corpuscular Hemoglobin 32.9H, Mean Corpuscular Hemoglobin Concent 33.0, Red Cell Distribution Width 13.0, Platelet Count 139L, Mean Platelet Volume 6.0L, Neutrophils (%) (Auto) 58.6, Lymphocytes (%) (Auto) 24.3, Monocytes (%) (Auto) 9.1, Eosinophils (%) (Auto) 7.1H, Basophils (%) (Auto) 0.9, Prothrombin Time 11.2, Prothromb Time International Ratio 1.1, Activated Partial Thromboplast Time 31, Urine Color Pale yellow, Urine Appearance Clear, Urine pH 5, Urine Specific Zirconia 1.015, Urine Protein 4+H, Urine Glucose (UA) 1+H, Urine Ketones Negative, Urine Blood 3+H, Urine Nitrite Negative, Urine Bilirubin Negative, Urine Urobilinogen Normal, Urine Leukocyte Esterase Negative, Urine RBC 2-4H, Urine WBC 0-2, Urine Squamous Epithelial Cells None, Urine Bacteria Few, Sodium Level 139, Potassium Level 5.2H, Chloride Level 106, Carbon Dioxide Level 18L, Anion Gap 15, Blood Urea Nitrogen 89H, Creatinine 6.9H, Estimat Glomerular Filtration Rate 8.0, Glucose Level 127H, Calcium Level 9.3, Total Bilirubin 0.4, Aspartate Amino Transf (AST/ SGOT) 15, Alanine Aminotransferase (ALT/SGPT) 15, Alkaline Phosphatase 144H, Total Creatine Kinase 34, Troponin I 0.070H, Pro-B-Type Natriuretic Peptide 69364H, Total Protein 7.1, Albumin 3.6, Globulin 3.5, Albumin/Globulin Ratio 1.0 06/12/18 05:15: White Blood Count 5.1, Red Blood Count 3.07L, Hemoglobin 10.1L, Hematocrit 30.4L , Mean Corpuscular Volume 99, Mean Corpuscular Hemoglobin 33.1H, Mean Corpuscular Hemoglobin Concent 33.3, Red Cell Distribution Width 12.7, Platelet Count 139L, Mean Platelet Volume 5.7L, Neutrophils (%) (Auto) 63.3, Lymphocytes (%) (Auto) 20.5, Monocytes (%) (Auto) 6.4, Eosinophils (%) (Auto) 9.2H, Basophils (%) (Auto) 0.6, Sodium Level 140, Potassium Level 5.0, Chloride Level 107, Carbon Dioxide Level 19L, Anion Gap 15, Blood Urea Nitrogen 89H, Creatinine 6.7H, Estimat Glomerular Filtration Rate 8.2, Glucose Level 70L, Calcium Level 9.3, Total Bilirubin 0.4, Aspartate Amino Transf (AST/SGOT) 15, Alanine Aminotransferase (ALT/SGPT) 15, Alkaline Phosphatase 122H, Pro-B-Type Natriuretic Peptide 81500T, Total Protein 6.6, Albumin 3.4, Globulin 3.2, Albumin/Globulin Ratio 1.1, Uric Acid 6.4, Phosphorus Level 4.3, Magnesium Level 2.2, Iron Level 74, Total Iron Binding Capacity 191L, Percent Iron Saturation 39, Unsaturated Iron Binding 117, Ferritin 465H, Gamma Glutamyl Transpeptidase 12, C-Reactive Protein, Quantitative 2.5H, Triglycerides Level 72 , Cholesterol Level 95, LDL Cholesterol 44, HDL Cholesterol 40, Cholesterol/HDL Ratio 2.4L, Vitamin B12 Level 342, Folate 17.1, Thyroid Stimulating Hormone (TSH ) 6.702H Height (Feet): 6 Height (Inches): 1.00 Weight (Pounds): 147 General Appearance: no apparent distress Cardiovascular: normal rate Respiratory/Chest: normal breath sounds Abdomen: soft Jose Elias Huynh MD Jun 12, 2018 13:38
[2018-06-12 16:00] VITALS: BP 144/72
--- NOTE | 2018-06-12 16:10 | NUR ---
NURSE NOTES: Dialysis completed. Received report from KRISTIE Barros. 2L removed. Patient is resting in bed. No pain or acute distress noted.
--- NOTE | 2018-06-12 19:00 | NUR ---
HAND-OFF: Report given to KRISTIE Burroughs.
--- NOTE | 2018-06-12 19:10 | NUR ---
NURSE NOTES: pt watching tv, no acute distress noted, safety precautions in place. will continue to monitor
[2018-06-12 20:00] VITALS: BP 158/79
[2018-06-12] MEDS: Donepezil 5mg Tab ORAL SCH (21:05)
[2018-06-12] MEDS: Atorvastatin 20mg tab ORAL SCH (21:05)
--- NOTE | 2018-06-12 21:13 | Psych Consult Progress Note ---
Psychiatry Progress Note Psychiatry Progress Note Medications Current Medications Medications (Trade) Dose Ordered Sig/Sobia Route PRN Reason Start Time Stop Time Status Last Admin Dose Admin Acetaminophen (Tylenol) 650 mg Q4H PRN ORAL Mild Pain (Pain Scale 1-3) 06/11/18 15:00 07/11/18 14:59 06/12/18 08:15 Albuterol/ Ipratropium (Albuterol/ Ipratropium) 3 ml Q4H PRN HHN Shortness of Breath 06/11/18 15:00 06/16/18 14:59 Allopurinol (Zyloprim) 100 mg DAILY ORAL 06/12/18 09:00 07/12/18 08:59 06/12/18 08:14 Amlodipine Besylate (Norvasc) 5 mg BID ORAL 06/11/18 18:00 07/12/18 08:59 06/12/18 17:17 Atorvastatin Calcium (Lipitor) 20 mg BEDTIME ORAL 06/11/18 21:00 07/11/18 20:59 06/12/18 21:05 Clopidogrel Bisulfate (Plavix) 75 mg DAILY ORAL 06/12/18 09:00 07/12/18 08:59 06/12/18 08:13 Dextrose (Dextrose 50%) 25 ml Q30M PRN IV Hypoglycemia 06/11/18 15:00 07/11/18 14:59 Dextrose (Dextrose 50%) 50 ml Q30M PRN IV Hypoglycemia 06/11/18 15:00 07/11/18 14:59 Diphenhydramine HCl (Benadryl) 25 mg Q6H PRN ORAL Itching/Pruritis 06/11/18 15:00 07/11/18 14:59 Docusate Sodium (Colace) 100 mg TID ORAL 06/11/18 18:00 07/11/18 20:59 06/12/18 17:17 Donepezil HCl (Aricept) 5 mg QHS ORAL 06/11/18 21:00 07/12/18 08:59 06/12/18 21:05 Escitalopram Oxalate (Lexapro) 10 mg DAILY ORAL 06/12/18 13:00 07/12/18 12:59 06/12/18 13:34 Heparin Sodium (Porcine) (Heparin 5000 units/ml) 5,000 units EVERY 12 HOURS SUBQ 06/11/18 21:00 07/11/18 20:59 06/12/18 21:06 Levothyroxine Sodium (Synthroid) 25 mcg Q24H ORAL 06/12/18 06:30 07/12/18 06:29 06/12/18 05:46 Lisinopril (Zestril) 10 mg DAILY ORAL 06/12/18 09:00 07/12/18 08:59 06/12/18 08:14 Mirtazapine (Remeron) 7.5 mg BEDTIME ORAL 06/12/18 21:00 07/12/18 20:59 06/12/18 21:05 Ondansetron HCl (Zofran) 4 mg Q6H PRN IVP Nausea & Vomiting 06/11/18 15:00 07/11/18 14:59 Pantoprazole (Protonix) 40 mg DAILY ORAL 06/11/18 17:15 07/11/18 17:14 06/12/18 08:14 Neurological/Psychiatric: Reports: anxiety, depressed, emotional problems Allergies: Coded Allergies: No Known Allergies (Unverified , 06/11/18) Objective Data Height (Feet): 6 Height (Inches): 1.00 Weight (Pounds): 147 Appearance: well groomed Behavior Mannerisms: good eye contact Mental Status Exam - Affect: flat Mental Status Exam - Mood: depressed, anxious Mental Status Exam - Thought P: logical Mental Status Exam - Suicidal: not present Assessment/Plan Problem List: (1) MDD (major depressive disorder), recurrent episode ICD Codes: F33.9 - Major depressive disorder, recurrent, unspecified SNOMED: 267073978 (2) Anxiety disorder ICD Codes: F41.9 - Anxiety disorder, unspecified SNOMED: 131899400 Plan: Lexapro 10mg po qam Remeron 7.5mg po qhs provide ro/Myesha Kelly MD Jun 12, 2018 21:13
[2018-06-13] VITALS: BP_SYST 150; BP_DIAS 7; BP_DIAS 76
--- NOTE | 2018-06-13 | NUR ---
NURSE NOTES: pt sleeping, no acute distress noted, safety precautions in place. will continue to monitor.
[2018-06-13 04:00] VITALS: BP 150/83
[2018-06-13] MEDS: Levothyroxine 25mcg tab ORAL SCH (05:50)
--- NOTE | 2018-06-13 06:31 | NUR ---
NURSE NOTES: pt remains in stable condition, no acute distress, no change of condition, all needs met during my shift. will endorse pt to incoming nurse.
[2018-06-13 07:14] LABS: BASOPHILS % (AUTO) 1.3 % (0.0-2.0); EOSINOPHILS % (AUTO) 7.5 % (0.0-3.0); HEMATOCRIT 35.8 % (42.0-52.0); LYMPHOCYTES % (AUTO) 32.8 % (20.0-45.0); MEAN CORPUSCULAR VOLUME 98 FL (80-99); MONOCYTES % (AUTO) 6.3 % (1.0-10.0); NEUTROPHILS % (AUTO) 52.1 % (45.0-75.0); PLATELET COUNT 174 K/UL (150-450); RED BLOOD COUNT 3.63 M/UL (4.70-6.10); RED CELL DISTRIBUTION WIDTH 12.5 % (11.6-14.8); WHITE BLOOD COUNT 5.2 K/UL (4.8-10.8)
--- NOTE | 2018-06-13 07:28 | NUR ---
NURSE NOTES: Received report from Heike FLOWERS. Pt in bed and eating breakfast. AOX4 and able to verbalize. No c/o pain. No sings of distress noted. IV intact patent in RAC 20G SL. L upper arm fistula noted with thrill/bruit. Bed placed in lowest position locked. 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 Will continue to plan of care.
--- NOTE | 2018-06-13 07:30 | NUR ---
HAND-OFF: Report given to KRISTIE Lovell.
[2018-06-13 07:35] LABS: ANION GAP 10 mmol/L (5-15); BLOOD UREA NITROGEN 55 mg/dL (7-18); CALCIUM 9.7 MG/DL (8.5-10.1); CARBON DIOXIDE 29 MMOL/L (21-32); CHLORIDE 105 MMOL/L (98-107); CREATININE 5.2 MG/DL (0.55-1.30); SODIUM 144 MMOL/L (136-145)
[2018-06-13 08:00] VITALS: BP 162/73
[2018-06-13] MEDS: Allopurinol 100mg Tab ORAL SCH (08:31)
[2018-06-13] MEDS: Lisinopril 10mg tab ORAL SCH (08:31)
[2018-06-13] MEDS: Docusate 100mg cap ORAL SCH ×3 (08:31→17:14)
[2018-06-13] MEDS: Heparin 5000 units/ml inj SUBQ SCH ×2 (08:36→21:28)
[2018-06-13 12:00] VITALS: BP 166/84
[2018-06-13 16:00] VITALS: BP 162/88
--- NOTE | 2018-06-13 18:56 | Nephrology Progress Note ---
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 anemia of ckd hypertensive kidney disease high cholestrol hypothyroidism psych disease Plan arrange for HD ,06/12 and 06/15 Renal diet adjust bp meds per orders Subjective ROS Limited/Unobtainable: No Objective Objective Last 24 Hour Vital Signs Date Time Temp Pulse Resp B/P (MAP) Pulse Ox O2 Delivery O2 Flow Rate FiO2 06/13/18 17:14 59 162/88 06/13/18 16:00 59 06/13/18 16:00 98.1 61 18 162/88 (112) 96 06/13/18 12:00 59 06/13/18 12:00 97.6 69 20 166/84 (111) 98 06/13/18 09:00 Room Air 06/13/18 08:31 162/73 06/13/18 08:30 65 06/13/18 08:00 67 06/13/18 08:00 98.1 65 18 162/73 (102) 97 06/13/18 04:00 69 06/13/18 04:00 98.4 72 19 150/83 (105) 96 06/13/18 00:00 74 06/13/18 00:00 97.4 76 18 150/76 (100) 98 06/12/18 21:00 Room Air 06/12/18 20:00 97.6 76 18 158/79 (105) 95 06/12/18 20:00 76 Intake and Output 06/12/18 06/13/18 19:00 07:00 Intake Total 610 ml Output Total 2000 ml Balance -1390 ml Intake Oral 610 ml Hemodialysis UF 2000 ml Laboratory Tests 06/13/18 06:25: White Blood Count 5.2, Red Blood Count 3.63L, Hemoglobin 12.0L, Hematocrit 35.8L , Mean Corpuscular Volume 98, Mean Corpuscular Hemoglobin 33.1H, Mean Corpuscular Hemoglobin Concent 33.6, Red Cell Distribution Width 12.5, Platelet Count 174, Mean Platelet Volume 6.2L, Neutrophils (%) (Auto) 52.1, Lymphocytes ( %) (Auto) 32.8, Monocytes (%) (Auto) 6.3, Eosinophils (%) (Auto) 7.5H, Basophils (%) (Auto) 1.3, Sodium Level 144, Potassium Level 4.0, Chloride Level 105, Carbon Dioxide Level 29, Anion Gap 10, Blood Urea Nitrogen 55H, Creatinine 5.2H, Estimat Glomerular Filtration Rate 11.1, Glucose Level 91, Calcium Level 9.7, Free Thyroxine 0.82 Height (Feet): 6 Height (Inches): 1.00 Weight (Pounds): 144 General Appearance: no apparent distress Objective no change Jose Elias Huynh MD Jun 13, 2018 18:56
[2018-06-13] MEDS ORDERED: Lisinopril 10mg tab ORAL SCH (19:00)
--- NOTE | 2018-06-13 19:08 | NUR ---
HAND-OFF: Report given to Sen RN. Pt remains stable.
--- NOTE | 2018-06-13 19:10 | NUR ---
NURSE NOTES: Received report from Candace Lovell Patient in bed AAO X4 with no complaints of acute pain or distress noted at this time. Placed on RA and is saturating at 96-97%. IV line intact and patent, CARLOS MANUEL Fistula intact. Able to ambulate to the bathroom with assistance and sometimes uses urinal as needed. Safety precaution in place; siderails X2 up, call light within reach, bed in lowest position, brakes and alarm on at all times. Needs and wants anticipated and attended, will continue plan of care and monitor for any changes noted. HD done on 06/12. 2L out Scheduled HD to be done on Thursday 06/15. Will continue to monitor
[2018-06-13 20:00] VITALS: BP 169/84
--- NOTE | 2018-06-13 20:07 | General Progress Note ---
Assessment/Plan Assessment: #ESRD on HD M/W/F, last session on 06/05 #Hypertensive nephropathy #Hyperkalemia, present on admission #Metabolic acidosis, present on admission -continue inpatient level of care -Cont HD per Nephrology -continue to monitor BMP -continue to monitor mentation for evidence of uremia -continue to monitor for evidence of fluid overload -Spoke to nurse case manager about patient's need for outpatient HD to be arranged #Essential HTN, uncontrolled likely due to missed HD #Hypertensive heart disease #Hyperlipidemia -continue outpatient anti-hypertensive regimen including lisinopril and amlodipine -continue to monitor blood pressure #Anemia of ESRD, stable H&H -continue to monitor CBC -not a candidate for ESAs at this time #Dementia, mild #Schizophrenia #Depression -continue supportive care -frequent orienting -fall, aspiration precautions -continue Aricept -Psychiatry eval appreciated #Hypothyroidism -continue levothyroxine -check free T4 in AM Subjective Date patient seen: Jun 13, 2018 Time patient seen: 08:25 ROS Limited/Unobtainable: No Allergies: Coded Allergies: No Known Allergies (Unverified , 06/11/18) Subjective No acute overnight events, no new complaints Objective Last 24 Hour Vital Signs Date Time Temp Pulse Resp B/P (MAP) Pulse Ox O2 Delivery O2 Flow Rate FiO2 06/13/18 19:11 162/88 06/13/18 17:14 59 162/88 06/13/18 16:00 59 06/13/18 16:00 98.1 61 18 162/88 (112) 96 06/13/18 12:00 59 06/13/18 12:00 97.6 69 20 166/84 (111) 98 06/13/18 09:00 Room Air 06/13/18 08:31 162/73 06/13/18 08:30 65 06/13/18 08:00 67 06/13/18 08:00 98.1 65 18 162/73 (102) 97 06/13/18 04:00 69 06/13/18 04:00 98.4 72 19 150/83 (105) 96 06/13/18 00:00 74 06/13/18 00:00 97.4 76 18 150/76 (100) 98 06/12/18 21:00 Room Air Intake and Output 06/12/18 06/13/18 19:00 07:00 Intake Total 610 ml Output Total 2000 ml Balance -1390 ml Intake Oral 610 ml Hemodialysis UF 2000 ml Laboratory Tests 06/13/18 06:25: White Blood Count 5.2, Red Blood Count 3.63L, Hemoglobin 12.0L, Hematocrit 35.8L , Mean Corpuscular Volume 98, Mean Corpuscular Hemoglobin 33.1H, Mean Corpuscular Hemoglobin Concent 33.6, Red Cell Distribution Width 12.5, Platelet Count 174, Mean Platelet Volume 6.2L, Neutrophils (%) (Auto) 52.1, Lymphocytes ( %) (Auto) 32.8, Monocytes (%) (Auto) 6.3, Eosinophils (%) (Auto) 7.5H, Basophils (%) (Auto) 1.3, Sodium Level 144, Potassium Level 4.0, Chloride Level 105, Carbon Dioxide Level 29, Anion Gap 10, Blood Urea Nitrogen 55H, Creatinine 5.2H, Estimat Glomerular Filtration Rate 11.1, Glucose Level 91, Calcium Level 9.7, Free Thyroxine 0.82 Height (Feet): 6 Height (Inches): 1.00 Weight (Pounds): 144 Objective General: alert, cooperative, no distress, appears stated age Head: normocephalic, without obvious abnormality, atraumatic Eyes: conjunctivae/corneas clear. PERRL, EOM's intact Throat: lips, mucosa, and tongue normal. MMM Neck: supple, symmetrical, trachea midline, and no JVD Lungs: clear to auscultation bilaterally Heart: regular rate and rhythm, S1, S2 normal, no murmur, click, rub or gallop Abdomen: soft, non-tender, non-distended, bowel sounds normal; no masses or organomegaly Extremities: extremities normal, atraumatic, no cyanosis or edema Pulses: 2+ and symmetric Skin: skin color, texture, turgor normal; no rashes or lesions Neurologic: grossly normal, no focal deficits Nahun Calvo MD Jun 13, 2018 20:07
[2018-06-13] MEDS: Donepezil 5mg Tab ORAL SCH (21:26)
[2018-06-13] MEDS: Atorvastatin 20mg tab ORAL SCH (21:26)
--- NOTE | 2018-06-13 23:37 | Psych Consult Progress Note ---
Psychiatry Progress Note Psychiatry Progress Note Medications Current Medications Medications (Trade) Dose Ordered Sig/Sobia Route PRN Reason Start Time Stop Time Status Last Admin Dose Admin Acetaminophen (Tylenol) 650 mg Q4H PRN ORAL Mild Pain (Pain Scale 1-3) 06/11/18 15:00 07/11/18 14:59 06/13/18 19:11 Albuterol/ Ipratropium (Albuterol/ Ipratropium) 3 ml Q4H PRN HHN Shortness of Breath 06/11/18 15:00 06/16/18 14:59 Allopurinol (Zyloprim) 100 mg DAILY ORAL 06/12/18 09:00 07/12/18 08:59 06/13/18 08:31 Amlodipine Besylate (Norvasc) 5 mg BID ORAL 06/11/18 18:00 07/12/18 08:59 06/13/18 17:14 Atorvastatin Calcium (Lipitor) 20 mg BEDTIME ORAL 06/11/18 21:00 07/11/18 20:59 06/13/18 21:26 Clopidogrel Bisulfate (Plavix) 75 mg DAILY ORAL 06/12/18 09:00 07/12/18 08:59 06/13/18 08:32 Dextrose (Dextrose 50%) 25 ml Q30M PRN IV Hypoglycemia 06/11/18 15:00 07/11/18 14:59 Dextrose (Dextrose 50%) 50 ml Q30M PRN IV Hypoglycemia 06/11/18 15:00 07/11/18 14:59 Diphenhydramine HCl (Benadryl) 25 mg Q6H PRN ORAL Itching/Pruritis 06/11/18 15:00 07/11/18 14:59 Docusate Sodium (Colace) 100 mg TID ORAL 06/11/18 18:00 07/11/18 20:59 06/13/18 17:14 Donepezil HCl (Aricept) 5 mg QHS ORAL 06/11/18 21:00 07/12/18 08:59 06/13/18 21:26 Escitalopram Oxalate (Lexapro) 10 mg DAILY ORAL 06/12/18 13:00 07/12/18 12:59 06/13/18 08:31 Heparin Sodium (Porcine) (Heparin 5000 units/ml) 5,000 units EVERY 12 HOURS SUBQ 06/11/18 21:00 07/11/18 20:59 06/13/18 21:28 Levothyroxine Sodium (Synthroid) 25 mcg Q24H ORAL 06/12/18 06:30 07/12/18 06:29 06/13/18 05:50 Lisinopril (Zestril) 10 mg BID ORAL 06/14/18 09:00 07/12/18 08:59 Mirtazapine (Remeron) 7.5 mg BEDTIME ORAL 06/12/18 21:00 07/12/18 20:59 06/13/18 21:26 Ondansetron HCl (Zofran) 4 mg Q6H PRN IVP Nausea & Vomiting 06/11/18 15:00 07/11/18 14:59 Pantoprazole (Protonix) 40 mg DAILY ORAL 06/11/18 17:15 07/11/18 17:14 06/13/18 08:31 Allergies: Coded Allergies: No Known Allergies (Unverified , 06/11/18) Objective Data Height (Feet): 6 Height (Inches): 1.00 Weight (Pounds): 144 General Appearance: WD/WN, no apparent distress, alert Appearance: well groomed Behavior Mannerisms: good eye contact Mental Status Exam - Affect: constricted Mental Status Exam - Mood: depressed, anxious Mental Status Exam - Thought P: logical, goal-directed Mental Status Exam - Suicidal: not present Mental Status Exam - Cognition: no abnormalities Assessment/Plan Problem List: (1) MDD (major depressive disorder), recurrent episode ICD Codes: F33.9 - Major depressive disorder, recurrent, unspecified SNOMED: 371006538 (2) Anxiety disorder ICD Codes: F41.9 - Anxiety disorder, unspecified SNOMED: 134214388 Status: stable Plan: remeron qhs lexapro qam provided ro/Myesha Kelly MD Jun 13, 2018 23:37
--- NOTE | 2018-06-14 03:11 | NUR ---
NURSE NOTES: Patient in bed asleep with no S/S of distress at this time. Will continue plan of care and monitor for any changes noted.
[2018-06-14 03:58] VITALS: BP 160/82
[2018-06-14] MEDS: Levothyroxine 25mcg tab ORAL SCH (05:13)
--- NOTE | 2018-06-14 07:09 | NUR ---
NURSE NOTES: Received report form Sen FLOWERS. Pt in bed sleep but arousable to verbal stimuli. No c/o pain. No signs of distress noted. On room air. 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 IV in 20G RAC SL intact and patent. Bed in lowest position and locked. able to call the light for help. reminded pt for Echo test today and stress test scheduled tomorrow and not to drink any kinds of caffein from tonight to stress test done. Able to understand and verbalize the instructions. Will continue to plan of care. Addendum: 06/14/18 at 0724 by Fredo Lovell RN NURSE NOTES: Received report from Sen FLOWERS. Pt in bed awake. AO X4. No c/o pain. No signs of distress noted. On room air.Breathing even and unlabored. IV RAC 20G SL intact and patent. L upper arm fistula noted. Bed in lowest position and locked. ICD in left lateral chest noted. Will continue to monitor with current plan of care.
--- NOTE | 2018-06-14 07:09 | NUR ---
HAND-OFF: Report given to Candace Lovell RN. Patient in bed with no S/S of distress noted at this time. Will continue plan of care.
[2018-06-14 08:00] VITALS: BP 154/67
[2018-06-14] MEDS: Allopurinol 100mg Tab ORAL SCH (08:23)
[2018-06-14] MEDS: Docusate 100mg cap ORAL SCH ×3 (08:23→17:50)
[2018-06-14] MEDS: Lisinopril 10mg tab ORAL SCH ×2 (08:23→17:50)
[2018-06-14] MEDS: Heparin 5000 units/ml inj SUBQ SCH ×2 (08:28→20:33)
--- NOTE | 2018-06-14 10:38 | Nephrology Progress Note ---
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 Subjective ROS Limited/Unobtainable: No Objective Objective Last 24 Hour Vital Signs Date Time Temp Pulse Resp B/P (MAP) Pulse Ox O2 Delivery O2 Flow Rate FiO2 06/14/18 09:00 Room Air 06/14/18 09:00 Room Air 06/14/18 08:24 61 154/67 06/14/18 08:23 154/67 06/14/18 08:00 60 06/14/18 08:00 97.5 61 18 154/67 (96) 96 06/14/18 04:00 61 06/14/18 03:58 98.0 71 19 160/82 (108) 98 06/14/18 00:00 57 06/13/18 21:00 Room Air 06/13/18 21:00 Room Air 06/13/18 20:00 97.6 92 18 169/84 (112) 95 06/13/18 20:00 62 06/13/18 19:11 162/88 06/13/18 17:14 59 162/88 06/13/18 16:00 59 06/13/18 16:00 98.1 61 18 162/88 (112) 96 06/13/18 12:00 59 06/13/18 12:00 97.6 69 20 166/84 (111) 98 Intake and Output 06/13/18 06/14/18 18:59 06:59 Intake Total 360 ml 120 ml Output Total 350 ml Balance 10 ml 120 ml Intake Oral 360 ml 120 ml Output Urine Total 350 ml # Bowel Movements 1 Height (Feet): 6 Height (Inches): 1.00 Weight (Pounds): 146 General Appearance: no apparent distress Objective no change Jose Elias Huynh MD Jun 14, 2018 10:38
--- NOTE | 2018-06-14 11:15 | NUR ---
NURSE NOTES: Received abnormal result of Troponin I with 0.077 from Tawnya from laboratory. Dr. Calvo paged and awaiting for reply
[2018-06-14 12:00] VITALS: BP 151/78
--- NOTE | 2018-06-14 12:00 | NUR ---
NURSE NOTES: reported of troponin I result with no new order. Per Dr. Calvo it could be happen for pt.s with hemodialysis. Will continue to plan of care.
[2018-06-14 16:00] VITALS: BP 99/54
--- NOTE | 2018-06-14 17:19 | General Progress Note ---
Assessment/Plan Assessment: #ESRD on HD M/W/F, last session on 06/05 #Hypertensive nephropathy #Hyperkalemia, present on admission #Metabolic acidosis, present on admission -continue inpatient level of care -Cont HD per Nephrology -continue to monitor BMP -continue to monitor mentation for evidence of uremia -continue to monitor for evidence of fluid overload -Spoke to keycase assembler about patient's need for outpatient HD to be arranged #Essential HTN, uncontrolled likely due to missed HD #Hypertensive heart disease #Hyperlipidemia -continue outpatient anti-hypertensive regimen including lisinopril and amlodipine -continue to monitor blood pressure #Anemia of ESRD, stable H&H -continue to monitor CBC -not a candidate for ESAs at this time #Dementia, mild #Schizophrenia #Depression -continue supportive care -frequent orienting -fall, aspiration precautions -continue Aricept -Psychiatry eval appreciated #Hypothyroidism -continue levothyroxine Subjective Date patient seen: Jun 14, 2018 Time patient seen: 12:45 ROS Limited/Unobtainable: No Allergies: Coded Allergies: No Known Allergies (Unverified , 06/11/18) Subjective No acute overnight events, no new complaints Objective Last 24 Hour Vital Signs Date Time Temp Pulse Resp B/P (MAP) Pulse Ox O2 Delivery O2 Flow Rate FiO2 06/14/18 16:00 97.5 61 20 99/54 (69) 98 06/14/18 12:00 97.8 62 18 151/78 (102) 96 06/14/18 12:00 70 06/14/18 09:00 Room Air 06/14/18 09:00 Room Air 06/14/18 08:24 61 154/67 06/14/18 08:23 154/67 06/14/18 08:00 60 06/14/18 08:00 97.5 61 18 154/67 (96) 96 06/14/18 04:00 61 06/14/18 03:58 98.0 71 19 160/82 (108) 98 06/14/18 00:00 57 06/13/18 21:00 Room Air 06/13/18 21:00 Room Air 06/13/18 20:00 97.6 92 18 169/84 (112) 95 06/13/18 20:00 62 06/13/18 19:11 162/88 Intake and Output 06/13/18 06/14/18 19:00 07:00 Intake Total 360 ml 120 ml Output Total 350 ml Balance 10 ml 120 ml Intake Oral 360 ml 120 ml Output Urine Total 350 ml # Bowel Movements 1 Laboratory Tests 06/14/18 10:50: Troponin I 0.077H Height (Feet): 6 Height (Inches): 1.00 Weight (Pounds): 146 Objective General: alert, cooperative, no distress, appears stated age Head: normocephalic, without obvious abnormality, atraumatic Eyes: conjunctivae/corneas clear. PERRL, EOM's intact Throat: lips, mucosa, and tongue normal. MMM Neck: supple, symmetrical, trachea midline, and no JVD Lungs: clear to auscultation bilaterally Heart: regular rate and rhythm, S1, S2 normal, no murmur, click, rub or gallop Abdomen: soft, non-tender, non-distended, bowel sounds normal; no masses or organomegaly Extremities: extremities normal, atraumatic, no cyanosis or edema Pulses: 2+ and symmetric Skin: skin color, texture, turgor normal; no rashes or lesions Neurologic: grossly normal, no focal deficits Nahun Calvo MD Jun 14, 2018 17:19
--- NOTE | 2018-06-14 19:10 | NUR ---
HAND-OFF: Report given to Sen RN. Pt remains stable..
--- NOTE | 2018-06-14 19:15 | NUR ---
NURSE NOTES: Received report from Candace Lovell Patient in bed AAO X4 with no complaints of acute pain or distress noted at this time. Placed on RA and is saturating at 95-97%. IV line intact and patent, CARLOS MANUEL Fistula intact. Able to ambulate to the bathroom with assistance and sometimes uses urinal as needed. Safety precaution in place; siderails X2 up, call light within reach, bed in lowest position, brakes and alarm on at all times. Needs and wants anticipated and attended, will continue plan of care and monitor for any changes noted. HD scheduled tomorrow 06/15 with [facility] Dialysis. Will continue to monitor
[2018-06-14 20:00] VITALS: BP 165/70
[2018-06-14] MEDS: Donepezil 5mg Tab ORAL SCH (20:31)
[2018-06-14] MEDS: Atorvastatin 20mg tab ORAL SCH (20:32)
--- NOTE | 2018-06-14 21:27 | Psych Consult Progress Note ---
Psychiatry Progress Note Psychiatry Progress Note Medications Current Medications Medications (Trade) Dose Ordered Sig/Sobia Route PRN Reason Start Time Stop Time Status Last Admin Dose Admin Acetaminophen (Tylenol) 650 mg Q4H PRN ORAL Mild Pain (Pain Scale 1-3) 06/11/18 15:00 07/11/18 14:59 06/14/18 15:06 Albuterol/ Ipratropium (Albuterol/ Ipratropium) 3 ml Q4H PRN HHN Shortness of Breath 06/11/18 15:00 06/16/18 14:59 Allopurinol (Zyloprim) 100 mg DAILY ORAL 06/12/18 09:00 07/12/18 08:59 06/14/18 08:23 Amlodipine Besylate (Norvasc) 5 mg BID ORAL 06/11/18 18:00 07/12/18 08:59 06/14/18 17:50 Atorvastatin Calcium (Lipitor) 20 mg BEDTIME ORAL 06/11/18 21:00 07/11/18 20:59 06/14/18 20:32 Clopidogrel Bisulfate (Plavix) 75 mg DAILY ORAL 06/12/18 09:00 07/12/18 08:59 06/14/18 08:24 Dextrose (Dextrose 50%) 25 ml Q30M PRN IV Hypoglycemia 06/11/18 15:00 07/11/18 14:59 Dextrose (Dextrose 50%) 50 ml Q30M PRN IV Hypoglycemia 06/11/18 15:00 07/11/18 14:59 Diphenhydramine HCl (Benadryl) 25 mg Q6H PRN ORAL Itching/Pruritis 06/11/18 15:00 07/11/18 14:59 Docusate Sodium (Colace) 100 mg TID ORAL 06/11/18 18:00 07/11/18 20:59 06/14/18 17:50 Donepezil HCl (Aricept) 5 mg QHS ORAL 06/11/18 21:00 07/12/18 08:59 06/14/18 20:31 Escitalopram Oxalate (Lexapro) 10 mg DAILY ORAL 06/12/18 13:00 07/12/18 12:59 06/14/18 08:24 Heparin Sodium (Porcine) (Heparin 5000 units/ml) 5,000 units EVERY 12 HOURS SUBQ 06/11/18 21:00 07/11/18 20:59 06/14/18 20:33 Levothyroxine Sodium (Synthroid) 25 mcg Q24H ORAL 06/12/18 06:30 07/12/18 06:29 06/14/18 05:13 Lisinopril (Zestril) 10 mg BID ORAL 06/14/18 09:00 07/12/18 08:59 06/14/18 17:50 Mirtazapine (Remeron) 7.5 mg BEDTIME ORAL 06/12/18 21:00 07/12/18 20:59 06/14/18 20:31 Ondansetron HCl (Zofran) 4 mg Q6H PRN IVP Nausea & Vomiting 06/11/18 15:00 07/11/18 14:59 Pantoprazole (Protonix) 40 mg DAILY ORAL 06/11/18 17:15 07/11/18 17:14 06/14/18 08:23 Problems: (1) MDD (major depressive disorder), recurrent episode (2) Anxiety disorder Neurological/Psychiatric: Reports: anxiety, depressed, emotional problems Allergies: Coded Allergies: No Known Allergies (Unverified , 06/11/18) Objective Data Height (Feet): 6 Height (Inches): 1.00 Weight (Pounds): 146 General Appearance: WD/WN, no apparent distress, alert Appearance: well groomed Behavior Mannerisms: good eye contact Mental Status Exam - Affect: constricted Mental Status Exam - Mood: depressed, anxious Speech: clear Mental Status Exam - Thought P: logical, coherent Mental Status Exam - Suicidal: not present Assessment/Plan Problem List: (1) MDD (major depressive disorder), recurrent episode ICD Codes: F33.9 - Major depressive disorder, recurrent, unspecified SNOMED: 548033777 (2) Anxiety disorder ICD Codes: F41.9 - Anxiety disorder, unspecified SNOMED: 352872758 Status: stable, progressing Myesha Pedraza MD Jun 14, 2018 21:27
[2018-06-15] VITALS: BP 171/79
--- NOTE | 2018-06-15 03:30 | NUR ---
NURSE NOTES: Patient in bed asleep with no S/S of distress noted. Will continue to monitor.
[2018-06-15 04:00] VITALS: BP 119/76
[2018-06-15] MEDS: Levothyroxine 25mcg tab ORAL SCH (05:38)
--- NOTE | 2018-06-15 07:16 | NUR ---
NURSE NOTES: Received report from Sen FLOWERS. Pt. in bed and asleep but arousable to verbal stimuli. AAO X4 . On RA and breathing even and unlabored . IV in RAC with 20G SL intact and patent. CARLOS MANUEL Fistula intact. Bed in lowest position locked. No c/o pain and no signs of any distress noted. V/s in stable. HD scheduled today. Will continue to plan of care.
--- NOTE | 2018-06-15 07:22 | NUR ---
HAND-OFF: Report given to Candace Lovell RN. Patient in stable condition. Endorsed plan of care.
[2018-06-15 08:00] VITALS: BP 151/71
--- NOTE | 2018-06-15 08:46 | NUR ---
CASE MANAGEMENT:REVIEW 06/15/18 SI: ESRD ON HD HTN NEPHROPATHY. METABOLIC ACIDOSIS 98.7 58 17 151/71 97% ON RA LAST TROPONIN(+) 0.077 IS: LISINOPRIL PO BID REMERON PO QHS LEXAPRO PO QD PLAVIX PO QD HEPARIN SQ Q12 NORVASC PO BID PROTONIX PO QD : TELEMETRY STATUS DCP: FROM [facility] PLAN: REFER TO DIALYSIS CENTER ONCE HEP PANEL HAS RESULTED
[2018-06-15] MEDS: Allopurinol 100mg Tab ORAL SCH (09:13)
[2018-06-15] MEDS: Docusate 100mg cap ORAL SCH ×3 (09:13→17:31)
[2018-06-15] MEDS: Lisinopril 10mg tab ORAL SCH ×2 (09:14→17:31)
[2018-06-15] MEDS: Heparin 5000 units/ml inj SUBQ SCH ×2 (09:17→21:00)
[2018-06-15 09:49] LABS: ANION GAP 11 mmol/L (5-15); BLOOD UREA NITROGEN 71 mg/dL (7-18); CALCIUM 9.6 MG/DL (8.5-10.1); CARBON DIOXIDE 22 MMOL/L (21-32); CHLORIDE 106 MMOL/L (98-107); CREATININE 5.9 MG/DL (0.55-1.30); POTASSIUM 4.8 MMOL/L (3.5-5.1); SODIUM 139 MMOL/L (136-145)
--- NOTE | 2018-06-15 10:57 | General Progress Note ---
Assessment/Plan Assessment: #ESRD on HD M/W/F #Hypertensive nephropathy #Hyperkalemia, present on admission #Metabolic acidosis, present on admission -continue inpatient level of care -Patient had HD Friday, plan for another session today -continue to monitor BMP -Case management to arrange outpatient HD #Essential HTN, variable control #Hypertensive heart disease #Hyperlipidemia -continue current anti-hypertensives -continue to monitor blood pressure #Anemia of ESRD, stable H&H -continue to monitor CBC #Dementia, mild #Schizophrenia #Depression -continue supportive care -frequent orienting -fall, aspiration precautions -continue Aricept -Psychiatry eval appreciated #Hypothyroidism -continue levothyroxine -free T4 wnl I spent 70 minutes on this patient's case, and 35 minutes was dedicated to counseling and/or care coordination. Time of note may not reflect time of encounter. Subjective Date patient seen: Jun 15, 2018 Time patient seen: 09:00 ROS Limited/Unobtainable: No Constitutional: Denies: chills, fever Cardiovascular: Denies: chest pain Respiratory: Denies: cough Gastrointestinal/Abdominal: Denies: abdomen distended, abdominal pain Allergies: Coded Allergies: No Known Allergies (Unverified , 06/11/18) Subjective Medicine follow up for ESRD, metabolic acidosis, hyperkalemia, uncontrolled HTN. Underwent HD on Friday, another session today. Objective Last 24 Hour Vital Signs Date Time Temp Pulse Resp B/P (MAP) Pulse Ox O2 Delivery O2 Flow Rate FiO2 06/15/18 09:14 151/71 06/15/18 09:14 58 151/71 06/15/18 09:00 Room Air 06/15/18 09:00 Room Air 06/15/18 08:00 98.7 58 17 151/71 (97) 97 06/15/18 04:00 57 06/15/18 04:00 98.2 64 17 119/76 (90) 95 06/15/18 00:00 64 06/15/18 00:00 98.1 71 18 171/79 (109) 96 06/14/18 21:00 Room Air 06/14/18 21:00 Room Air 06/14/18 20:00 98.4 67 18 165/70 (101) 96 06/14/18 20:00 61 06/14/18 17:50 168/84 06/14/18 17:50 63 168/84 06/14/18 16:00 97.5 61 20 99/54 (69) 98 06/14/18 16:00 71 06/14/18 12:00 97.8 62 18 151/78 (102) 96 06/14/18 12:00 70 Intake and Output 06/14/18 06/15/18 18:59 06:59 Intake Total 720 ml 360 ml Output Total 100 ml Balance 620 ml 360 ml Intake Oral 720 ml 360 ml Output Urine Total 100 ml # Voids 3 3 Laboratory Tests 06/15/18 09:14: Sodium Level 139, Potassium Level 4.8, Chloride Level 106, Carbon Dioxide Level 22, Anion Gap 11, Blood Urea Nitrogen 71H, Creatinine 5.9H, Estimat Glomerular Filtration Rate 9.6, Glucose Level 138H, Calcium Level 9.6 Height (Feet): 6 Height (Inches): 1.00 Weight (Pounds): 147 General Appearance: no apparent distress, alert EENT: normal ENT inspection Neck: normal alignment, supple Cardiovascular: normal rate, regular rhythm Respiratory/Chest: lungs clear, normal breath sounds Abdomen: non tender, soft David Garcia MD Jun 15, 2018 10:57
[2018-06-15 12:00] VITALS: BP 154/72
--- NOTE | 2018-06-15 12:04 | Nephrology Progress Note ---
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 Renal diet adjust bp meds add Imdure per orders med surg ? DC planning Subjective ROS Limited/Unobtainable: No Constitutional: Reports: malaise Objective Objective Last 24 Hour Vital Signs Date Time Temp Pulse Resp B/P (MAP) Pulse Ox O2 Delivery O2 Flow Rate FiO2 06/15/18 09:14 151/71 06/15/18 09:14 58 151/71 06/15/18 09:00 Room Air 06/15/18 09:00 Room Air 06/15/18 08:00 98.7 58 17 151/71 (97) 97 06/15/18 04:00 57 06/15/18 04:00 98.2 64 17 119/76 (90) 95 06/15/18 00:00 64 06/15/18 00:00 98.1 71 18 171/79 (109) 96 06/14/18 21:00 Room Air 06/14/18 21:00 Room Air 06/14/18 20:00 98.4 67 18 165/70 (101) 96 06/14/18 20:00 61 06/14/18 17:50 168/84 06/14/18 17:50 63 168/84 06/14/18 16:00 97.5 61 20 99/54 (69) 98 06/14/18 16:00 71 Intake and Output 06/14/18 06/15/18 18:59 06:59 Intake Total 720 ml 360 ml Output Total 100 ml Balance 620 ml 360 ml Intake Oral 720 ml 360 ml Output Urine Total 100 ml # Voids 3 3 Laboratory Tests 06/15/18 09:14: Sodium Level 139, Potassium Level 4.8, Chloride Level 106, Carbon Dioxide Level 22, Anion Gap 11, Blood Urea Nitrogen 71H, Creatinine 5.9H, Estimat Glomerular Filtration Rate 9.6, Glucose Level 138H, Calcium Level 9.6 Height (Feet): 6 Height (Inches): 1.00 Weight (Pounds): 147 General Appearance: no apparent distress Cardiovascular: normal peripheral pulses Respiratory/Chest: decreased breath sounds Abdomen: soft Objective no change Jose Elias Huynh MD Jun 15, 2018 12:04
[2018-06-15] MEDS ORDERED: Imdur 30mg tab ORAL SCH (12:15)
--- NOTE | 2018-06-15 15:35 | NUR ---
DISCHARGE PLANNING NEED HEP PANEL RESULTS TO REFER TO OUTPT DIALYSIS SPOKE WITH HECTOR THIS MORNING HEP C STILL PENDING Addendum: 06/15/18 at 1557 by ÓSCAR MANRIQUEZ LVN LVN CLINICALS FAXED TO [facility] AND [facility] [place]
[2018-06-15 16:00] VITALS: BP 153/63
--- NOTE | 2018-06-15 18:19 | NUR ---
NURSE NOTES: Left a voice message to [facility](Office of diversion and reentry @[facility]) dependency case manager for patient. Per [facility] dependency case manager, she wants to update any information on the patient. informed of pt's possible discharge plan tomorrow. No reply from the dependency case manager. Cell phone #: [phone]
--- NOTE | 2018-06-15 19:33 | NUR ---
HAND-OFF: Report given to Addi FLOWERS. Pt remains stable.
--- NOTE | 2018-06-15 19:34 | NUR ---
NURSE NOTES: Received pt from KRISTIE Lovell. Pt is awake and resting. Pt in no acute distress. IV site intact. Bed in lowest position and call light within reach. Will continue with plan of care.
[2018-06-15 20:00] VITALS: BP 151/68
[2018-06-15] MEDS: Atorvastatin 20mg tab ORAL SCH (20:59)
[2018-06-15] MEDS: Donepezil 5mg Tab ORAL SCH (20:59)
[2018-06-16] VITALS: BP 145/70
[2018-06-16 06:20] VITALS: BP 151/79
[2018-06-16] MEDS: Levothyroxine 25mcg tab ORAL SCH (06:22)
--- NOTE | 2018-06-16 07:30 | NUR ---
HAND-OFF: Report given to KRISTIE Benz. Endorsed plan of care.
--- NOTE | 2018-06-16 07:45 | NUR ---
NURSE NOTES: Received patient from KRISTIE Herbert in bed resting, Pt complain of back pain 06/03, will administer pain medication according to protocol. No s/s of respiratory or cardiac distress noted. child monitor is not in place, patient is pending discharge. IV is intact and patent. Bed is in lowest position with bedside rails up x2. Call light is within reach. Will continue with the plan of care.
[2018-06-16 08:00] VITALS: BP 140/69
[2018-06-16] MEDS: Docusate 100mg cap ORAL SCH ×3 (08:26→18:16)
[2018-06-16] MEDS: Lisinopril 10mg tab ORAL SCH ×2 (08:26→18:16)
[2018-06-16] MEDS: Allopurinol 100mg Tab ORAL SCH (08:27)
[2018-06-16] MEDS: Heparin 5000 units/ml inj SUBQ SCH (08:30)
[2018-06-16] MEDS ORDERED: Imdur 30mg tab ORAL SCH (09:00)
--- NOTE | 2018-06-16 09:01 | NUR ---
DISCHARGE PLANNING HEP C RESULTS STILL PENDING CALLED LAB @ 1343 AND SPOKE WITH LOPEZ..HE WILL F/U AND CALL THIS BOILER ASSISTANT OPERATOR BACK Addendum: 06/16/18 at 0913 by ÓSCAR MANRIQUEZ LVN LVN CALLED [facility] AND SPOKE WITH OUSMANE WHO SAID SHE WOULD CALL BACK WITH CHAIR TIME [facility] T: [phone] F: [phone] Addendum: 06/16/18 at 0918 by ÓSCAR MANRIQUEZ LVN LVN CALLED [facility] TO CONFIRM BED BUT WAS INFORMED NO ONE IN THE ADMISSIONS DEPARTMENT WILL BE IN UNTIL 1030. THIS BOILER ASSISTANT OPERATOR WILL CALL BACK [facility] T: [phone] F: [phone] Addendum: 06/16/18 at 1113 by ÓSCAR MANRIQUEZ LVN LVN RECEIVED HEP C RESULTS AND FAXED TO [facility] SPOKE WITH MEGA AT [facility] ~ ASSIGNED CHAIR TIME IS -SAT @ 5264
--- NOTE | 2018-06-16 11:37 | NUR ---
RD ASSESSMENT & RECOMMENDATIONS SEE CARE ACTIVITY FOR COMPLETE ASSESSMENT DAILY ESTIMATED NEEDS: Needs based on ESRD on HD 66kg 30-35 kcals/kg 7110-2404 total kcals 1.2-1.8 g protein/kg 79-119 g total protein Fluid per MD, on HD NUTRITION DIAGNOSIS: Increased kcal and protein needs r/t renal dysfunction as evidenced by pt w/ ESRD on HD. CURRENT DIET: Renal PO DIET RECOMMENDATIONS: RENAL DIET ADDITIONAL RECOMMENDATIONS: 1) Obtain a standing weight as able 2) Nephrovite x 1 daily 3) Add high protein snacks in b/w meals
--- NOTE | 2018-06-16 11:51 | Nephrology Progress Note ---
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 DC planning in process Subjective ROS Limited/Unobtainable: No Constitutional: Reports: malaise Objective Objective Last 24 Hour Vital Signs Date Time Temp Pulse Resp B/P (MAP) Pulse Ox O2 Delivery O2 Flow Rate FiO2 06/16/18 09:00 Room Air 06/16/18 09:00 Room Air 06/16/18 08:27 140/69 06/16/18 08:26 140/69 06/16/18 08:26 66 140/69 06/16/18 08:00 98.2 66 18 140/69 (92) 95 06/16/18 06:20 64 06/16/18 06:20 98.4 64 18 151/79 (103) 93 06/16/18 00:00 98.0 62 20 145/70 (95) 95 06/16/18 00:00 62 06/15/18 21:00 Room Air 06/15/18 21:00 Room Air 06/15/18 20:00 98.5 62 20 151/68 (95) 95 06/15/18 20:00 62 06/15/18 17:31 153/63 06/15/18 17:31 61 153/63 06/15/18 16:00 97.9 62 18 153/63 (93) 95 06/15/18 16:00 61 06/15/18 13:21 154/72 06/15/18 12:00 65 06/15/18 12:00 97.9 63 20 154/72 (99) 97 Intake and Output 06/15/18 06/16/18 18:59 06:59 Intake Total 360 ml 120 ml Output Total 2000 ml Balance -1640 ml 120 ml Intake Oral 360 ml 120 ml Hemodialysis UF 2000 ml # Voids 1 Height (Feet): 6 Height (Inches): 1.00 Weight (Pounds): 143 General Appearance: no apparent distress Objective no change Jose Elias Huynh MD Jun 16, 2018 11:51
[2018-06-16 12:00] VITALS: BP 143/64
--- NOTE | 2018-06-16 12:46 | Psych Consult Progress Note ---
Psychiatry Progress Note Psychiatry Progress Note Medications Current Medications Medications (Trade) Dose Ordered Sig/Sobia Route PRN Reason Start Time Stop Time Status Last Admin Dose Admin Acetaminophen (Tylenol) 650 mg Q4H PRN ORAL Mild Pain (Pain Scale 1-3) 06/11/18 15:00 07/11/18 14:59 06/16/18 08:25 Albuterol/ Ipratropium (Albuterol/ Ipratropium) 3 ml Q4H PRN HHN Shortness of Breath 06/11/18 15:00 06/16/18 14:59 Allopurinol (Zyloprim) 100 mg DAILY ORAL 06/12/18 09:00 07/12/18 08:59 06/16/18 08:27 Amlodipine Besylate (Norvasc) 5 mg BID ORAL 06/11/18 18:00 07/12/18 08:59 06/16/18 08:26 Atorvastatin Calcium (Lipitor) 20 mg BEDTIME ORAL 06/11/18 21:00 07/11/18 20:59 06/15/18 20:59 Clopidogrel Bisulfate (Plavix) 75 mg DAILY ORAL 06/12/18 09:00 07/12/18 08:59 06/16/18 08:28 Dextrose (Dextrose 50%) 25 ml Q30M PRN IV Hypoglycemia 06/11/18 15:00 07/11/18 14:59 Dextrose (Dextrose 50%) 50 ml Q30M PRN IV Hypoglycemia 06/11/18 15:00 07/11/18 14:59 Diphenhydramine HCl (Benadryl) 25 mg Q6H PRN ORAL Itching/Pruritis 06/11/18 15:00 07/11/18 14:59 06/14/18 22:18 Docusate Sodium (Colace) 100 mg TID ORAL 06/11/18 18:00 07/11/18 20:59 06/16/18 08:26 Donepezil HCl (Aricept) 5 mg QHS ORAL 06/11/18 21:00 07/12/18 08:59 06/15/18 20:59 Escitalopram Oxalate (Lexapro) 10 mg DAILY ORAL 06/12/18 13:00 07/12/18 12:59 06/16/18 08:27 Heparin Sodium (Porcine) (Heparin 5000 units/ml) 5,000 units EVERY 12 HOURS SUBQ 06/11/18 21:00 07/11/18 20:59 06/16/18 08:30 Isosorbide Mononitrate (Imdur) 30 mg DAILY ORAL 06/16/18 09:00 07/16/18 08:59 06/16/18 08:27 Levothyroxine Sodium (Synthroid) 25 mcg Q24H ORAL 06/12/18 06:30 07/12/18 06:29 06/16/18 06:22 Lisinopril (Zestril) 10 mg BID ORAL 06/14/18 09:00 07/12/18 08:59 06/16/18 08:26 Mirtazapine (Remeron) 7.5 mg BEDTIME ORAL 06/12/18 21:00 07/12/18 20:59 06/15/18 20:59 Ondansetron HCl (Zofran) 4 mg Q6H PRN IVP Nausea & Vomiting 06/11/18 15:00 07/11/18 14:59 Pantoprazole (Protonix) 40 mg DAILY ORAL 06/11/18 17:15 07/11/18 17:14 06/16/18 08:27 Allergies: Coded Allergies: No Known Allergies (Unverified , 06/11/18) Objective Data Height (Feet): 6 Height (Inches): 1.00 Weight (Pounds): 143 General Appearance: WD/WN, no apparent distress, alert, alert oriented x3 Appearance: well groomed Behavior Mannerisms: good eye contact Mental Status Exam - Affect: constricted Mental Status Exam - Mood: depressed Speech: clear Mental Status Exam - Thought P: no abnormalities Mental Status Exam - Thought C: no abnormalities Mental Status Exam - Suicidal: not present Assessment/Plan Problem List: (1) MDD (major depressive disorder), recurrent episode ICD Codes: F33.9 - Major depressive disorder, recurrent, unspecified SNOMED: 484478529 (2) Anxiety disorder ICD Codes: F41.9 - Anxiety disorder, unspecified SNOMED: 597348517 Status: doing well, stable, progressing Plan: Lexapro 10mg po qam Remeron 7.5mg po qhs provide ro/st the pt is leaving to sniff today Myesha Pedraza MD Jun 16, 2018 12:46
--- NOTE | 2018-06-16 14:56 | General Progress Note ---
Assessment/Plan Assessment: #ESRD on HD M/W/F #Hypertensive nephropathy #Hyperkalemia, present on admission #Metabolic acidosis, present on admission -contiue with HD as per Nephrology -continue to monitor BMP -Case management to arrange outpatient HD #Essential HTN, variable control #Hypertensive heart disease #Hyperlipidemia -continue current anti-hypertensives -continue to monitor blood pressure #Anemia of ESRD, stable H&H -continue to monitor CBC #Dementia, mild #Schizophrenia #Depression -continue supportive care -frequent orienting -fall, aspiration precautions -continue Aricept -Psychiatry eval appreciated #Hypothyroidism -continue levothyroxine -free T4 wnl Subjective Date patient seen: Jun 16, 2018 Time patient seen: 16:00 ROS Limited/Unobtainable: No Constitutional: Denies: chills, fever Cardiovascular: Denies: chest pain Respiratory: Denies: cough Gastrointestinal/Abdominal: Denies: abdominal pain Allergies: Coded Allergies: No Known Allergies (Unverified , 06/11/18) Subjective Medicine follow up for ESRD, metabolic acidosis, hyperkalemia, uncontrolled HTN. Tolerating HD. No current complaints. Objective Last 24 Hour Vital Signs Date Time Temp Pulse Resp B/P (MAP) Pulse Ox O2 Delivery O2 Flow Rate FiO2 06/16/18 12:00 98.3 61 18 143/64 (90) 96 06/16/18 09:00 Room Air 06/16/18 09:00 Room Air 06/16/18 08:27 140/69 06/16/18 08:26 140/69 06/16/18 08:26 66 140/69 06/16/18 08:00 98.2 66 18 140/69 (92) 95 06/16/18 06:20 64 06/16/18 06:20 98.4 64 18 151/79 (103) 93 06/16/18 00:00 98.0 62 20 145/70 (95) 95 06/16/18 00:00 62 06/15/18 21:00 Room Air 06/15/18 21:00 Room Air 06/15/18 20:00 98.5 62 20 151/68 (95) 95 06/15/18 20:00 62 06/15/18 17:31 153/63 06/15/18 17:31 61 153/63 06/15/18 16:00 97.9 62 18 153/63 (93) 95 06/15/18 16:00 61 Intake and Output 06/15/18 06/16/18 18:59 06:59 Intake Total 360 ml 120 ml Output Total 2000 ml Balance -1640 ml 120 ml Intake Oral 360 ml 120 ml Hemodialysis UF 2000 ml # Voids 1 Height (Feet): 6 Height (Inches): 1.00 Weight (Pounds): 143 General Appearance: no apparent distress, alert Neck: normal alignment, supple Cardiovascular: normal peripheral pulses, normal rate, regular rhythm Abdomen: non tender, soft David Garcia MD Jun 16, 2018 14:56
--- NOTE | 2018-06-16 15:36 | NUR ---
DISCHARGE PLAN PATIENT HAS AN ASSIGNED BED AT [facility] PATIENT HAS AN ASSIGNED CHAIR TIME AT [facility] [address] [facility] UPDATED WAITING FOR DISCHARGE ORDER
--- NOTE | 2018-06-16 15:55 | Discharge Summary ---
Discharge Summary Hospital Course Date of Admission Jun 11, 2018 at 15:32 Date of Discharge 06/16/18 Admitting Diagnosis END STAGE RENAL ,DIALYSIS HPI Sukhi Hackett is a 68 year old male who was admitted on Jun 11, 2018 at 15:32 for End Stage Renal Disease,Dialysis Hospital Course #ESRD on HD M/W/F #Hypertensive nephropathy #Hyperkalemia, present on admission #Metabolic acidosis, present on admission -underwent HD -Case management has made arrangements for outpatient HD #Essential HTN, variable control #Hypertensive heart disease #Hyperlipidemia -continue current anti-hypertensives #Anemia of ESRD, stable H&H -stable counts #Dementia, mild #Schizophrenia #Depression -continue supportive care -frequent orienting -fall, aspiration precautions -continue Aricept -Psychiatry eval appreciated #Hypothyroidism -continue levothyroxine -free T4 wnl Time spent preparing discharge was 35 minutes which included coordination with nursing, case management and consulting MDs Discharge Discharge Disposition Patient was discharged to SNF Discharge Diagnoses: (1) ESRD (end stage renal disease) David Garcia MD Jun 16, 2018 15:55
--- NOTE | 2018-06-16 15:59 | NUR ---
DISCHARGE PLANNED PATIENT WILL DISCHARGE TO [facility] ROOM [address] SKILLED T: [phone] FOR NURSE TO NURSE REPORT [facility] HAS BEEN ARRANGED FOR 1800 [facility] HAS BEEN ARRANGED [facility] [place] --Fri T: [phone] SPOKE WITH RONALD AT [facility] WHO CONFIRMED SHE WILL ARRANGE TRANSPORTATION TO AND FROM DIALYSIS FOR THIS PATIENT BEGINNING FRIDAY MORNING
[2018-06-16 16:00] VITALS: BP 146/78
--- NOTE | 2018-06-16 17:28 | NUR ---
NURSE NOTES: Inter-facility transfer report given to KRISTIE Al at [facility].
[2018-06-16 18:16] VITALS: BP 146/78
--- NOTE | 2018-06-16 18:30 | NUR ---
NURSE NOTES: PATIENT DISCHARGED PER MD ORDER VIA AMBULANCE TO [facility], ALL DISCHARGE ORDERS CARRIED OUT, IV REMOVED, NO BLEEDING, NO INFILTRATION NOTED. BLASTING ENTRYMAN WAS PREVIOUSLY REMOVED AND GIVEN TO ORIENTATION & MOBILITY SPECIALIST. BELONGING LIST CHECKED WITH PATIENT, SIGNED, AND WITH PATIENT. PATIENT IS IN STABLE CONDITION.
== END 2018-06-16 18:26 | DRG 682 ==
LOC: EDBD 14:05 → EMR 14:44 → 2E 15:32 → EDBEDREQSVC 15:33 → EDBEDREQ 15:33 → 2E 19:50
PROC: 5A1D70Z Performance of Urinary Filtration, Intermittent, Less than 6 Hours Per Day (ICD-10-PCS; principal; 2018-06-12)
DX: I13.11 Hypertensive heart and chronic kidney disease without heart failure, with stage 5 chronic kidney disease, or end stage renal disease (principal); N18.6 End stage renal disease; Z99.2 Dependence on renal dialysis; F17.200 Nicotine dependence, unspecified, uncomplicated; K21.9 Gastro-esophageal reflux disease without esophagitis; E78.5 Hyperlipidemia, unspecified; F03.90 Unspecified dementia, unspecified severity, without behavioral disturbance, psychotic disturbance, mood disturbance, and anxiety; E03.9 Hypothyroidism, unspecified; Z91.15 Patient's noncompliance with renal dialysis; F25.9 Schizoaffective disorder, unspecified; F32.9 Major depressive disorder, single episode, unspecified; F41.9 Anxiety disorder, unspecified
CPT/HCPCS: 36415; 71045; 80048; 80053; 80061; 81003; 82550; 82607; 82728; 82746; 82977; 83540; 83550; 83735; 83880; 84100; 84439; 84443; 84484; 84550; 85025; 85610; 85730; 86140; 86706; 86707; 86803; 87081; 93005; 94640; 99285

== ENCOUNTER 2019-02-03 18:12 | Inpatient (IN) | payer MEDICARE, MEDICAID ==
[~2019-02-03] VITALS: Ht 175.3 cm; Wt 70.8 kg
[~2019-02-03 18:12] MED LIST: ACETAMINOPHEN325 M1 ORAL; ALLOPURINOL100 M1 ORAL; CLARITIN10 M2 ORAL; COLACE100 MG/10 ORAL; DONEPEZIL HCL5 M2 ORAL; FLUTICASONE PRO15 GM TOPIC; LIPITOR20 MG ORAL; LISINOPRIL10 MG ORAL; Lidocaine 1% Plain 30 ml INJ ONE; NORVASC5 MG ORAL; PEPCID AC20 M2 PO; PLAVIX75 MG ORAL; SYNTHROID25 MCG ORAL
--- NOTE | 2019-02-03 18:15 | NUR ---
ED Nurse Note: Patient brought into ED by ambulance RA 40 c/o chest pain, on the sternal area radiating to his back about 1hour prior to arrival. patient finished hemodialysis today.
--- NOTE | 2019-02-03 18:16 | NUR ---
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
[2019-02-03 18:47] VITALS: BP 141/60
[2019-02-03 19:00] LABS: HEMATOCRIT 29.5 % (42.0-52.0); HEMOGLOBIN 10.8 G/DL (14.2-18.0); MEAN CORPUSCULAR VOLUME 91 FL (80-99); PLATELET COUNT 84 K/UL (150-450); RED BLOOD COUNT 3.23 M/UL (4.70-6.10); RED CELL DISTRIBUTION WIDTH 12.2 % (11.6-14.8); WHITE BLOOD COUNT 10.9 K/UL (4.8-10.8)
[2019-02-03 19:12] LABS: ANION GAP 11 mmol/L (5-15); BLOOD UREA NITROGEN 36 mg/dL (7-18); CALCIUM 9.6 MG/DL (8.5-10.1); CARBON DIOXIDE 26 MMOL/L (21-32); CHLORIDE 101 MMOL/L (98-107); CREATININE 6.2 MG/DL (0.55-1.30); POTASSIUM 4.9 MMOL/L (3.5-5.1); SODIUM 138 MMOL/L (136-145)
--- NOTE | 2019-02-03 19:16 | Emergency Room Report ---
History of Present Illness General Chief Complaint: Chest Pain Source: Patient, EMS Present Illness HPI Patient presents with complaints of chest pain He reports that he had dialysis earlier today And since then was having off-and-on chest pain denies any vomiting patient is somewhat of a poor historian He keeps his hat on during the interview and is covering his eyes And patient does not remove his hat Also cannot provide name of his physician surgeon Allergies: Coded Allergies: No Known Allergies (Unverified , 06/11/18) Patient History Past Medical History: see triage record Reviewed Nursing Documentation: PMH: Agreed; PSxH: Agreed Nursing Documentation-PMH Hx Hypertension: Yes Hx Asthma: Yes Hx Gastrointestinal Problems: Yes - GERD Hx Dialysis: Yes - [facility] Review of Systems All Other Systems: negative except mentioned in HPI Physical Exam Vital Signs Date Time Temp Pulse Resp B/P (MAP) Pulse Ox O2 Delivery O2 Flow Rate FiO2 02/03/19 18:07 101.5 88 20 152/68 (96) 98 Nasal Cannula 2.0 Sp02 EP Interpretation: reviewed, normal General Appearance: mild distress - Somewhat tachypneic Head: normocephalic, atraumatic Eyes: bilateral eye PERRL, bilateral eye EOMI Neck: supple Respiratory: crackles - bilaterally decreased sounds on the right side Cardiovascular #1: regular rate, rhythm Gastrointestinal: non tender, soft Genitourinary: no CVA tenderness Musculoskeletal: normal inspection Neurologic: alert, oriented x3 Psychiatric: normal inspection Skin: no rash Lymphatic: no adenopathy Medical Decision Making Diagnostic Impression: Primary Impression: ACS (acute coronary syndrome) Additional Impression: ESRD (end stage renal disease) ER Course Patient is a fairly complex patient with multiple differential to consideration including but not limited to cardiac cardiopulmonary and vascular emergencies Patient's initial troponin is elevated patient is a dialysis patient this is repeated and shows similar findings EKG does not show any obvious ST elevation patient remains pain-free at this time EKG compared to previous and appears very similar patient admitted for further care Labs Test 02/03/19 18:30 02/04/19 06:20 02/04/19 13:30 White Blood Count 10.9 K/UL (4.8-10.8) Red Blood Count 3.23 M/UL (4.70-6.10) Hemoglobin 10.8 G/DL (14.2-18.0) Hematocrit 29.5 % (42.0-52.0) Mean Corpuscular Volume 91 FL (80-99) Mean Corpuscular Hemoglobin 33.4 PG (27.0-31.0) Mean Corpuscular Hemoglobin Concent 36.5 G/DL (32.0-36.0) Red Cell Distribution Width 12.2 % (11.6-14.8) Platelet Count 84 K/UL (150-450) Mean Platelet Volume 5.9 FL (6.5-10.1) Neutrophils (%) (Auto) % (45.0-75.0) Lymphocytes (%) (Auto) % (20.0-45.0) Monocytes (%) (Auto) % (1.0-10.0) Eosinophils (%) (Auto) % (0.0-3.0) Basophils (%) (Auto) % (0.0-2.0) Differential Total Cells Counted 100 Neutrophils % (Manual) 87 % (45-75) Lymphocytes % (Manual) 7 % (20-45) Monocytes % (Manual) 6 % (1-10) Eosinophils % (Manual) 0 % (0-3) Basophils % (Manual) 0 % (0-2) Band Neutrophils 0 % (0-8) Platelet Estimate Decreased Platelet Morphology Normal Hypochromasia 1+ Sodium Level 138 MMOL/L (136-145) Potassium Level 4.9 MMOL/L (3.5-5.1) Chloride Level 101 MMOL/L (98-107) Carbon Dioxide Level 26 MMOL/L (21-32) Anion Gap 11 mmol/L (5-15) Blood Urea Nitrogen 36 mg/dL (7-18) Creatinine 6.2 MG/DL (0.55-1.30) Estimat Glomerular Filtration Rate 9.0 mL/min (>60) Glucose Level 96 MG/DL (74-106) Lactic Acid Level 1.40 mmol/L (0.4-2.0) Calcium Level 9.6 MG/DL (8.5-10.1) Total Bilirubin 0.7 MG/DL (0.2-1.0) Aspartate Amino Transf (AST/SGOT) 18 U/L (15-37) Alanine Aminotransferase (ALT/SGPT) 12 U/L (12-78) Alkaline Phosphatase 102 U/L (46-116) Troponin I 0.781 ng/mL (0.000-0.056) 0.998 ng/mL (0.000-0.056) Pro-B-Type Natriuretic Peptide > 25570 pg/mL (0-125) Total Protein 7.0 G/DL (6.4-8.2) Albumin 3.3 G/DL (3.4-5.0) Globulin 3.7 g/dL Albumin/Globulin Ratio 0.9 (1.0-2.7) Lipase 27 U/L (73-393) Prothrombin Time 13.3 SEC (9.30-11.50) Prothromb Time International Ratio 1.3 (0.9-1.1) Activated Partial Thromboplast Time 36 SEC (23-33) EKG Diagnostic Results Rate: normal Rhythm: NSR ST Segments: other - Nonspecific ST changes similar to previous EKG Rhythm Strip Diag. Results EP Interpretation: yes Rate: 77 Rhythm: NSR, no PVC's, no ectopy Chest X-Ray Diagnostic Results Chest X-Ray Diagnostic Results : Chest X-Ray Ordered: Yes # of Views/Limited/Complete: 1 View Indication: Chest Pain EP Interpretation: Yes Interpretation: no pneumothorax, other - Pulmonary congestion cardiomegaly Impression: Other - Pulmonary congestion Electronically Signed by: Ibrahima Santana DO Last Vital Signs Date Time Temp Pulse Resp B/P (MAP) Pulse Ox O2 Delivery O2 Flow Rate FiO2 02/03/19 18:47 102.3 80 17 141/60 94 Nasal Cannula 2.0 Status: improved Disposition: ADMITTED INPATIENT Condition: Serious Referrals: NOT CHOSEN IPA/,REFERRING (PCP) Ibrahima Santana DO Feb 03, 2019 19:15
--- NOTE | 2019-02-03 19:22 | NUR ---
HAND-OFF: Report given to Report given to Sandra BURR.
[2019-02-03 19:23] LABS: ALANINE AMINOTRANSFERASE 12 U/L (12-78); ALBUMIN 3.3 G/DL (3.4-5.0); ALBUMIN/GLOBULIN RATIO 0.9 (1.0-2.7); ALKALINE PHOSPHATASE 102 U/L (46-116); ASPARTATE AMINO TRANSFERASE 18 U/L (15-37); BILIRUBIN,TOTAL 0.7 MG/DL (0.2-1.0)
[2019-02-03] MEDS ORDERED: Nitroglycerin 2% oint pkt TOPIC ONE (20:00)
[2019-02-03] MEDS ORDERED: Heparin 5000 units/ml inj SUBQ ONE (20:00)
[2019-02-03 20:43] VITALS: BP 133/37
--- NOTE | 2019-02-03 20:50 | NUR ---
ED Nurse Note: REPORT GIVEN TO KRISTIE COOK
[2019-02-03] MEDS ORDERED: RENVELA800 MG ORAL (20:56)
[2019-02-03] MEDS ORDERED: CLOPIDOGREL75 MG ORAL (20:56)
[2019-02-03] MEDS ORDERED: FLOMAX0.4 MG ORAL (20:56)
[2019-02-03] MEDS ORDERED: SEROQUEL50 MG ORAL (20:56)
[2019-02-03] MEDS ORDERED: METOPROLOL SUC100 MG ORAL (20:56)
[2019-02-03] MEDS ORDERED: CALCIUM ACETAT667 MG PO (20:56)
[2019-02-03] MEDS ORDERED: LOSARTAN POTAS100 MG ORAL (20:56)
[2019-02-03] MEDS ORDERED: APRESOLINE100 MG ORAL (20:56)
--- NOTE | 2019-02-03 21:00 | NUR ---
TRANSFER TO FLOOR: Patient transferred to tele per ERMD order via gurney per hospital protocol, pt sinus rhythm on auto design checker, vss, resp even and unlabored on RA, iv intact and patent, belongings sent w/ pt w/ completed list, report given to KRISTIE Fontana and endorsed care. swabs collected by KRISTIE Flores and sent to lab.
[2019-02-03 21:05] VITALS: BP 136/72
--- NOTE | 2019-02-03 21:11 | NUR ---
NURSE NOTES: Received pt from Simran Ricks RN. Pt transported via gurney. Pt awake and resting in bed in no distress, no c/o cp. nurse monitoring placed on patient, vitals taken. Bed locked in lowest position, bed alarm on, call light within reach. Iv site intact. Oriented pt to room and floor. Belongings list signed with KRISTIE Ricks. Will contact HCP for admission orders.
[2019-02-03] MEDS ORDERED: HYDROcodone/Acetamin 5/325 tab ORAL PRN (23:15)
[2019-02-04] VITALS: BP 149/59
[2019-02-04] MEDS: HYDROcodone/Acetamin 5/325 tab ORAL PRN ×2 (00:32→15:37)
[2019-02-04 04:00] VITALS: BP 134/73
[2019-02-04] MEDS: Levothyroxine 25mcg tab ORAL SCH (06:32)
--- NOTE | 2019-02-04 07:25 | NUR ---
HAND-OFF: Report given to KRISTIE Lock. Endorsed plan of care.
--- NOTE | 2019-02-04 07:30 | NUR ---
NURSE NOTES: Received pt lying on bed. Pt is forgetful x3. pt has NC 2LMP. pt has intact iv access LH 22G SL. No diet, Dr BRANCH notified waiting to call back. pt looks pale and weak. per noc shift RN, Dr GARCIA is aware about troponin.All needs attended, bed is locked and is in the lowest position, call light within easy reach. will continue to monitor.
[2019-02-04 07:52] VITALS: BP 128/58
--- NOTE | 2019-02-04 08:13 | NUR ---
NURSE NOTES: paged from [facility] group re diet order and dvt ppx, awaiting callback
[2019-02-04] MEDS: Donepezil 5mg Tab ORAL SCH (08:32)
[2019-02-04] MEDS: Docusate 100mg/10ml Liq ORAL SCH (08:33)
[2019-02-04] MEDS: Tamsulosin 0.4mg cap ORAL SCH (08:33)
[2019-02-04] MEDS: Metoprolol Succinate XL 100mg tab ORAL SCH (08:33)
[2019-02-04] MEDS: Morphine Sulfate 2mg/ml Inj(IV/IM USE ONLY) IVP PRN ×3 (08:43→16:57)
--- NOTE | 2019-02-04 08:50 | NUR ---
NURSE NOTES: Pt was in pain and asked for pain med RN offered him morphine and pt refused and asked for Matewan, morphine returned to pexis and Matewan given to pt and tolerate well. will continue to monitor.
[2019-02-04] MEDS ORDERED: Lisinopril 20mg tab ORAL SCH (09:00)
[2019-02-04] MEDS ORDERED: Heparin 5000 units/ml inj SUBQ SCH (09:00)
[2019-02-04] MEDS ORDERED: Allopurinol 100mg Tab ORAL SCH (09:00)
--- NOTE | 2019-02-04 10:50 | NUR ---
NURSE NOTES: Dr FERRERA called and ordered D/C LISINOPRIL and he is aware about troponin and Dr YEPEZ visited pt and he is aware about troponin, he will F/U.
--- NOTE | 2019-02-04 10:53 | Diagnostic Imaging Report ---
Indication: Chest pain, shortness of breath Technique: XRAY Chest 1v Comparison: 06/11/2018 Findings: Stable cardiomegaly. AICD unchanged in position. There is been interval placement of a tunneled dialysis catheter. There is pulmonary vascular congestion/mild interstitial edema. There is a small right pleural effusion with adjacent airspace opacities in the right lower lung which may be related to compressive atelectasis versus pneumonia. No radiographically appreciable pneumothorax. Osseous structures demonstrate no acute abnormality. Impression: Pulmonary vascular congestion/interstitial pulmonary edema. Small right pleural effusion with adjacent airspace opacities in the right mid/lower lung which may related to compressive atelectasis, foci of alveolar edema or pneumonia. Clinical correlation and follow-up recommended. Interval placement of a tunneled dialysis catheter.
--- NOTE | 2019-02-04 11:07 | Cardiac Electrophysiology PN ---
Subjective Subjective [id number] Objective Last 24 Hour Vital Signs Date Time Temp Pulse Resp B/P (MAP) Pulse Ox O2 Delivery O2 Flow Rate FiO2 02/04/19 09:21 98.4 02/04/19 08:33 74 128/58 02/04/19 08:33 74 128/58 02/04/19 07:54 Nasal Cannula 2.0 02/04/19 07:52 98.4 74 20 128/58 (81) 95 02/04/19 07:43 70 02/04/19 05:30 98.2 02/04/19 04:35 100.7 02/04/19 04:00 102.0 91 21 134/73 (93) 94 02/04/19 04:00 91 02/04/19 00:39 Nasal Cannula 2.0 02/04/19 00:00 98.1 60 18 149/59 (89) 98 02/04/19 00:00 60 02/03/19 21:05 98.2 82 20 136/72 (93) 92 02/03/19 21:00 98.2 68 18 133/71 96 Room Air 02/03/19 21:00 87 02/03/19 20:43 68 18 133/37 95 02/03/19 20:16 98.5 02/03/19 20:10 98.5 02/03/19 20:07 131/67 02/03/19 18:47 102.3 80 17 141/60 94 Nasal Cannula 2.0 02/03/19 18:44 88 20 Nasal Cannula 2.0 02/03/19 18:07 101.5 88 20 152/68 (96) 98 Nasal Cannula 2.0 Intake and Output 02/03/19 02/04/19 19:00 07:00 Intake Total 480 ml Output Total 0 ml Balance 0 ml 480 ml Intake Oral 480 ml Output Urine Total 0 ml # Voids 3 Laboratory Tests Test 02/03/19 18:30 02/04/19 06:20 White Blood Count 10.9 K/UL (4.8-10.8) H Red Blood Count 3.23 M/UL (4.70-6.10) L Hemoglobin 10.8 G/DL (14.2-18.0) L Hematocrit 29.5 % (42.0-52.0) L Mean Corpuscular Volume 91 FL (80-99) Mean Corpuscular Hemoglobin 33.4 PG (27.0-31.0) H Mean Corpuscular Hemoglobin Concent 36.5 G/DL (32.0-36.0) H Red Cell Distribution Width 12.2 % (11.6-14.8) Platelet Count 84 K/UL (150-450) L Mean Platelet Volume 5.9 FL (6.5-10.1) L Neutrophils (%) (Auto) % (45.0-75.0) Lymphocytes (%) (Auto) % (20.0-45.0) Monocytes (%) (Auto) % (1.0-10.0) Eosinophils (%) (Auto) % (0.0-3.0) Basophils (%) (Auto) % (0.0-2.0) Differential Total Cells Counted 100 Neutrophils % (Manual) 87 % (45-75) H Lymphocytes % (Manual) 7 % (20-45) L Monocytes % (Manual) 6 % (1-10) Eosinophils % (Manual) 0 % (0-3) Basophils % (Manual) 0 % (0-2) Band Neutrophils 0 % (0-8) Platelet Estimate Decreased L Platelet Morphology Normal Hypochromasia 1+ Sodium Level 138 MMOL/L (136-145) Potassium Level 4.9 MMOL/L (3.5-5.1) Chloride Level 101 MMOL/L (98-107) Carbon Dioxide Level 26 MMOL/L (21-32) Anion Gap 11 mmol/L (5-15) Blood Urea Nitrogen 36 mg/dL (7-18) H Creatinine 6.2 MG/DL (0.55-1.30) H Estimat Glomerular Filtration Rate 9.0 mL/min (>60) Glucose Level 96 MG/DL (74-106) Lactic Acid Level 1.40 mmol/L (0.4-2.0) Calcium Level 9.6 MG/DL (8.5-10.1) Total Bilirubin 0.7 MG/DL (0.2-1.0) Aspartate Amino Transf (AST/SGOT) 18 U/L (15-37) Alanine Aminotransferase (ALT/SGPT) 12 U/L (12-78) Alkaline Phosphatase 102 U/L (46-116) Troponin I 0.781 ng/mL (0.000-0.056) 0.998 ng/mL (0.000-0.056) Pro-B-Type Natriuretic Peptide > 54177 pg/mL (0-125) H Total Protein 7.0 G/DL (6.4-8.2) Albumin 3.3 G/DL (3.4-5.0) L Globulin 3.7 g/dL Albumin/Globulin Ratio 0.9 (1.0-2.7) L Lipase 27 U/L (73-393) L Microbiology Date/Time Source Procedure Growth Status 02/03/19 18:45 Blood Blood Culture - Preliminary Resulted 02/03/19 18:30 Blood Blood Culture - Preliminary Resulted Royer Doe MD Feb 04, 2019 11:07
--- NOTE | 2019-02-04 11:09 | NUR ---
NURSE NOTES: paged dr Kim re blood cx result, need id consult, awiaitng call back
[2019-02-04] MEDS ORDERED: Lexiscan 0.4mg/5ml syringe IV ONE (11:15)
[2019-02-04] MEDS ORDERED: Lexiscan 0.4mg/5ml syringe IV PRN (11:15)
[2019-02-04 12:00] VITALS: BP 112/54
[2019-02-04] MEDS: Losartan 50mg tab ORAL SCH (12:29)
--- NOTE | 2019-02-04 12:37 | Cardiology Report ---
APPROVED REPORT EKG Measurement Heart [id number] AK [id number] Normal sinus rhythm Left axis deviation Anterior infarct, age undetermined Abnormal ECG
--- NOTE | 2019-02-04 12:39 | Cardiology Report ---
APPROVED REPORT EKG Measurement Heart [id number] ID [id number] Poor data quality, interpretation may be adversely affected Sinus rhythm with premature atrial complexes Left axis deviation Septal infarct, age undetermined Abnormal ECG
[2019-02-04] MEDS ORDERED: Vancomycin 1.5gm/NS Premix q24h IVPB SCH (13:00)
--- NOTE | 2019-02-04 13:24 | NUR ---
CASE MANAGEMENT:REVIEW 68 YR OLD MALE BIBA FROM [facility] CC; CHEST PAIN PMH: ESRD ON HD SI: ACS. RENAL FAILURE 101.5 88 20 152/68 98% ON 2L/NC TROPONIN(+) 0.781 IS: ASA PO HEPARIN SQ NITRO BID 1" TYLENOL PO BLOOD CX CHEST XRAY : TO TELEMETRY PLAN: CARDIAC CONSULT STRESS TEST
[2019-02-04 13:55] LABS: INR 1.3 (0.9-1.1)
[2019-02-04] MEDS ORDERED: cefTRIAXone 1 GM in D5W 55 ML IVPB SCH (14:00)
--- NOTE | 2019-02-04 15:00 | NUR ---
NURSE NOTES: pt is out of unit to D/C HD cath, waiting to back to give him ROCEPHIN.
--- NOTE | 2019-02-04 15:44 | NUR ---
REMOVAL OF TUNNELED DIALYSIS CATHETER BY DR. BARROS. FA
[2019-02-04 15:49] VITALS: BP 144/79
[2019-02-04] MEDS ORDERED: HYDROcodone/Acetamin 10/325 tab ORAL PRN ×2 (17:30→17:45)
--- NOTE | 2019-02-04 17:37 | NUR ---
NURSE NOTES: RN galled [facility] HD and asked for doing HD tomorrow from [facility]. will continue to monitor.
--- NOTE | 2019-02-04 19:15 | NUR ---
HAND-OFF: Report given to MADINA FLOWERS.
--- NOTE | 2019-02-04 19:24 | NUR ---
HAND-OFF: Report given to SHARON FLOWERS. Pt is awake and stable.
--- NOTE | 2019-02-04 19:28 | NUR ---
Receive pt from KRISTIE Mai. Pt is awake and resting in bed in no distress, on 2 L nasal cannula. Iv site intact. Bed locked in lowest position, bed alarm on, call light within reach. Endorsed per day shift that dialysis center contacted, [facility] spoken to, and pt is scheduled for dialysis tomorrow. Will continue with plan of care.
[2019-02-04 20:00] VITALS: BP 123/58
--- NOTE | 2019-02-04 22:15 | History and Physical Report ---
DATE OF ADMISSION: 02/03/2019 CHIEF COMPLAINT: Chest pain. HISTORY OF PRESENT ILLNESS: This is a 68-year-old male who is on dialysis every Friday, Friday, Friday. I was called from the dialysis center this Friday about the patient having fever. I instructed the patient to be sent to another hospital for evaluation with a suspicion of infected PermCath in mind. Due to transportation issue, the patient was sent back to his board and care facility. Despite my orders, the patient was not sent to the hospital and was kept in the board and care. The patient was sent to the ER due to chest pain. I was not aware of the admission until this morning where the patient was admitted to another physician and he was kind enough to call me. The patient was admitted to the emergency department and indeed as I was going to see the patient, I was called about positive blood cultures and my prediction became true in suspecting the PermCath related sepsis. At this time, as I ordered, the PermCath was discontinued and pulled and the patient today is already seen by Infectious Disease. The patient is confused, being psychotic. PAST MEDICAL HISTORY: 1. End-stage renal failure, on dialysis. 2. Hypertensive cardiovascular disease. 3. Status post ICD. 4. Chronic kidney disease. HOME MEDICATIONS: Metoprolol, Vasotec, Renvela, losartan, tamsulosin, Plavix, hydralazine. ALLERGIES: No known drug allergies. FAMILY HISTORY: The patient is unable to give any further information. SOCIAL HISTORY: The patient is unable to give any further information. REVIEW OF SYSTEMS: The patient is unable to give any further information. PHYSICAL EXAMINATION: GENERAL: This is an elderly cachectic male, who is in no acute distress. VITAL SIGNS: Blood pressure 144/79, pulse 79 and regular, respirations 20, and temperature 97.9. HEENT: The head is normocephalic and atraumatic. Pupils are equal, round, and reactive to light and accommodation consensually. NECK: Supple. Trachea is midline. There was no lymphadenopathy or thyromegaly. LUNGS: Clear to auscultation and percussion. HEART: Regular rate and rhythm without rubs, murmurs, or gallops. ABDOMEN: Soft and nontender. Bowel sounds were active. EXTREMITIES: No clubbing, cyanosis, or edema. He has a left upper arm AV fistula with thrill and bruit. NEUROLOGIC: He is alert, but confused. There were no gross focal findings. LABORATORY AND ANCILLARY DATA: CBC, hematocrit 29.5, WBC 10.9. Chemistry, electrolytes within normal limits. BUN 36, creatinine 6.2. Pro beta-natriuretic peptide more than 35,000. Troponin level on admission 0.781, today is 0.998. EKG, sinus tachycardia, no signs of acute ischemia. Imaging reports, chest x-ray, pulmonary vascular congestion/interstitial pulmonary edema. ASSESSMENT: 1. PermCath sepsis as suspected with positive blood cultures, two bottles Gram-positive cocci in clusters, rule out MRSA septicemia. 2. End-stage renal failure, on dialysis. 3. Hypertensive cardiovascular disease. 4. Status post ICD. 5. Chronic kidney disease. 6. Doubt significant myocardial ischemia. PLAN: 1. IV vancomycin. 2. The PermCath was already pulled. 3. AV fistula clinically ready to use. I prefer not to put any lines in this patient. Salome Kim M.D. DR: GARETT JOB#: [id number] CC:
[2019-02-05] VITALS (8 sets, daily range): BP systolic 115–143; BP diastolic 64–80
[2019-02-05] MEDS ORDERED: Heparin Sod 1000 units/ml 10ml IV PRN (06:00)
[2019-02-05] MEDS: Levothyroxine 25mcg tab ORAL SCH (06:29)
--- NOTE | 2019-02-05 07:15 | NUR ---
HAND-OFF: Report given to KRISTIE Lock. Endorsed plan of care.
[2019-02-05] MEDS: Metoprolol Succinate XL 100mg tab ORAL SCH (07:53)
[2019-02-05 07:55] LABS: HEMATOCRIT 27.7 % (42.0-52.0); HEMOGLOBIN 9.2 G/DL (14.2-18.0); MEAN CORPUSCULAR VOLUME 97 FL (80-99); PLATELET COUNT 76 K/UL (150-450); RED BLOOD COUNT 2.86 M/UL (4.70-6.10); RED CELL DISTRIBUTION WIDTH 13.3 % (11.6-14.8); WHITE BLOOD COUNT 4.5 K/UL (4.8-10.8)
[2019-02-05] MEDS: Docusate 100mg/10ml Liq ORAL SCH (08:15)
[2019-02-05] MEDS: Tamsulosin 0.4mg cap ORAL SCH (08:15)
[2019-02-05] MEDS: Donepezil 5mg Tab ORAL SCH (08:15)
[2019-02-05] MEDS: Losartan 50mg tab ORAL SCH (08:16)
[2019-02-05 08:46] LABS: ANION GAP 10 mmol/L (5-15); BLOOD UREA NITROGEN 61 mg/dL (7-18); CALCIUM 8.9 MG/DL (8.5-10.1); CARBON DIOXIDE 25 MMOL/L (21-32); CHLORIDE 97 MMOL/L (98-107); CREATININE 7.6 MG/DL (0.55-1.30); POTASSIUM 4.4 MMOL/L (3.5-5.1); SODIUM 132 MMOL/L (136-145)
--- NOTE | 2019-02-05 08:49 | Diagnostic Imaging Report ---
Indication: End-stage renal disease. Working AV graft. The indwelling tunneled dialysis catheter. Request made for tunneled dialysis catheter removal. Total fluoroscopy time: 2.7 seconds Total fluoroscopy dose: 0.27 mGy Total number of images: 2 Comparison: Chest radiograph 02/03/2019 Technique findings: Patient positioned supine on the angiography table and the right chest and external portions of the indwelling tunneled dialysis catheter were prepped and draped in usual sterile fashion. Preprocedure timeout performed. The subcutaneous tunnel of the catheter was locally anesthetized with 1% lidocaine. The cuff was dissected and freed. The catheter was removed in its entirety. Hemostasis easily achieved and a dressing was applied. The catheter tip was sent for culture as requested. There is no appreciable from stable condition. Patient monitored throughout the procedure by a trained independent observer. Total procedure time 15 minutes. Incidental note is made of partially visualized ICD lead. IMPRESSION: Successful removal of tunneled dialysis catheter. Catheter tip sent for culture.
--- NOTE | 2019-02-05 09:37 | NUR ---
CASE MANAGEMENT:REVIEW 02/05/19 SI: PERMCATH SEPSIS. ESRD 98.8 80 20 143/75 95% ON RA WBC-4.5 H/H-9.2/27.7 PLT-76 BUN+61 CR+7.6 TROPONIN(+) 0.903 IS: IV ROCEPHIN Q24 LIPITOR PO QHS COZAAR PO QD NORVASC PO QD PLAVIX PO QD TOPROL XL PO QD FLOMAX PO QD : TELEMETRY STATUS DCP: FROM [facility] PLAN: F/U ON POSITIVE PRELIMINARY BLOOD CULTURE
--- NOTE | 2019-02-05 09:37 | NUR ---
NURSE NOTES: pt awake alert, no distress. lue shunt +thrill +bruit , no c/o pain, call light within reach. will monitor.
--- NOTE | 2019-02-05 09:50 | NUR ---
NURSE NOTES: left msg to dr Doe that cardio dept needs progress notes to override consent for patient since patient has confusion and doesnt have community representative. also paged dr Kim for the same issue
--- NOTE | 2019-02-05 11:21 | NUR ---
NURSE NOTES: received order from dr Doe for icu transfer for rosa m [facility], awaiting bed. patient slight sob 26 rr, conversant.
--- NOTE | 2019-02-05 11:26 | NUR ---
NURSE NOTES: rt called . per icu nurse , wait [address] ashley paged for possible breathing tx
[2019-02-05] MEDS ORDERED: Albuterol/Ipratropium 3ml neb HHN PRN ×2 (11:30→15:00)
--- NOTE | 2019-02-05 11:57 | NUR ---
NURSE NOTES: pt transferred to 246h with all belongings, patient receiving breathing tx since 1145 up to now. pt conversant rr 24-26. report given to Amanda FLOWERS/Fabiola FLOWERS Addendum: 02/05/19 at 1200 by TRISTIAN DIEZ RN right chest area with erhythme (s/p removal of hd cath, no pus drainage, serosanguinous drainage ) Addendum: 02/05/19 at 1206 by TRISTIAN DIEZ RN report given to Amanda DINH
--- NOTE | 2019-02-05 12:30 | NUR ---
1215 received pt fr, tele NEW ONSET OF A/FIB RVR HR 130/PLACED O2 @3L/NS SAT 93_95% HOB UP AWAKE/ AGITATED SBP13O/[address], [address] CONT, BEDSIDE MONITOR REMOVED MONITOR/O2 GOT OUT OF BED WALKING TO 246 K/FR, STWC161M ADVISED TO KEEP MONITOR ON PT BECAME VERVALLT ABUSIVE PT SEEN BY TITA BOATENG PLACED PO CARDIZEM TX PT TOSDU CLOSER NURSING STATIO 238/2
--- NOTE | 2019-02-05 13:00 | Consultation ---
DATE OF CONSULTATION: 02/04/2019 CARDIOLOGY CONSULTATION CONSULTING PHYSICIAN: Royer Doe M.D. REFERRING PHYSICIAN: Nahun Calvo M.D. ADDITIONAL REFERRING PHYSICIAN: Salome Kim M.D. REASON FOR CONSULTATION: Elevated troponin, evaluation of the patient's defibrillator. HISTORY OF PRESENT ILLNESS: The patient is a 68-year-old gentleman with history of hypertension and cardiomyopathy who has undergone a subcutaneous defibrillator implantation in the past and has end-stage renal disease, on hemodialysis, presented to the emergency room, complaining of chest pain. This is after he had dialysis and he has off and on chest pain. The patient's EKG shows sinus rhythm with ST-T wave abnormalities, suggestive of lateral ischemia. The patient also has underlying dementia, he is unable to provide any information. At the time of my evaluation, the patient denies any chest pain or shortness of breath. REVIEW OF SYSTEMS: Review of systems was negative other than what is mentioned in history of present illness. PAST MEDICAL HISTORY: As mentioned above. FAMILY HISTORY: Noncontributory. SOCIAL HISTORY: Does not smoke or drink alcohol. PHYSICAL EXAMINATION: VITAL SIGNS: Show blood pressure of 120/50, pulse 74, respirations 18, and temperature 98.5. HEAD AND NECK: Shows no JVD. LUNGS: Coarse rhonchi. CARDIOVASCULAR: Shows regular S1 and S2 with no gallop or murmur. ABDOMEN: Soft and nontender. EXTREMITIES: No pitting edema. His defibrillator is set under left axillary line subcutaneous and his PermCath in the right chest. LABORATORY DATA: His labs show sodium 138, potassium 4.9, BUN of 30, creatinine 6.2, and glucose of 96. Troponin is 0.07 and 0.998. BNP is more than 35,000. White count is 10.9, hematocrit 10.9, hematocrit 29, and platelet count of 84,000. ASSESSMENT AND PLAN: 1. Elevated troponin . Currently does not have any chest pain. This is likely due to the patient's renal failure. The patient is on Plavix, Lipitor, and Toprol XL 100 mg daily. In view of the continued discomfort, we will repeat EKG and get an echocardiogram for further evaluation. We will schedule the patient for stress test in the morning. 2. Hypertension, on losartan 100 mg daily, Norvasc 5 mg daily, Toprol-XL 100 mg daily, and hemodialysis. 3. Hyperlipidemia, on Lipitor. 4. Status post [employer] subcutaneous ICD to be interrogated for further evaluation. 5. End-stage renal disease, on hemodialysis per Dr. Kim. 6. Cardiomyopathy. will be repeated. The patient remains on losartan and metoprolol, on dialysis. Thank you very much, Dr. Kim, for allowing me to participate in the care of this patient. Please do not hesitate to contact me for any questions regarding my evaluation. Royer Doe M.D. DR: SOLANGE JOB#: [id number] CC:
--- NOTE | 2019-02-05 13:03 | Cardiac Electrophysiology PN ---
Assessment/Plan Assessment/Plan 1. Atrial fib with RVR 160s. Transferred to ICU to start Cardizem drip but pt noncompliant. Was in SR on admission. DC Losartan and Amlodipine. Increase Metoprolol to 100 bid. Add CArdizem 30 q 8hr and Amiodarone 400 bid. 2. Status post [employer] SQ ICD.May get a shock if rate is not controlled 3. Hypertensive cardiovascular disease.DC Losartan and Amlodipine. Increase Metoprolol to 100 bid. Add CArdizem 30 q 8hr 4.PermCath sepsis as suspected with positive blood cultures, two bottles Gram-positive cocci in clusters, rule out MRSA septicemia. 5. End-stage renal failure, on dialysis. 6. Compliance issue and agitation DW RN Subjective Subjective Developed atrial fib with RVR 160s after HD and transferred to ICU for Cardizem drip but patient now agitated with security at the door. Refusing the telemetry and meds. Objective Last 24 Hour Vital Signs Date Time Temp Pulse Resp B/P (MAP) Pulse Ox O2 Delivery O2 Flow Rate FiO2 02/05/19 11:37 157 02/05/19 11:28 98.8 130 20 120/80 (93) 95 02/05/19 10:36 129 02/05/19 09:00 Room Air 02/05/19 08:16 143/75 02/05/19 08:13 66 02/05/19 07:53 80 143/75 02/05/19 07:52 80 143/75 02/05/19 07:50 98.8 80 20 143/75 (97) 95 02/05/19 06:09 98.8 02/05/19 05:14 98.8 02/05/19 04:00 100.9 76 21 115/76 (89) 97 02/05/19 04:00 76 02/05/19 00:00 100.2 77 20 140/68 (92) 96 02/05/19 00:00 77 02/04/19 21:00 Nasal Cannula 2.0 02/04/19 20:00 100.4 72 20 123/58 (79) 92 02/04/19 20:00 72 02/04/19 16:29 80 02/04/19 16:07 97.9 02/04/19 15:49 97.9 79 20 144/79 (100) 99 Intake and Output 02/04/19 02/05/19 19:00 07:00 Intake Total 1340.0 ml 400 ml Output Total 300 ml Balance 1340.0 ml 100 ml Intake Oral 1010 ml 400 ml IV Total 330.0 ml Output Urine Total 300 ml # Voids 3 # Bowel Movements 1 Laboratory Tests Test 02/04/19 13:30 02/05/19 06:06 Prothrombin Time 13.3 SEC (9.30-11.50) H Prothromb Time International Ratio 1.3 (0.9-1.1) H Activated Partial Thromboplast Time 36 SEC (23-33) H White Blood Count 4.5 K/UL (4.8-10.8) #L Red Blood Count 2.86 M/UL (4.70-6.10) L Hemoglobin 9.2 G/DL (14.2-18.0) L Hematocrit 27.7 % (42.0-52.0) L Mean Corpuscular Volume 97 FL (80-99) Mean Corpuscular Hemoglobin 32.1 PG (27.0-31.0) H Mean Corpuscular Hemoglobin Concent 33.2 G/DL (32.0-36.0) Red Cell Distribution Width 13.3 % (11.6-14.8) Platelet Count 76 K/UL (150-450) L Mean Platelet Volume 6.6 FL (6.5-10.1) Neutrophils (%) (Auto) % (45.0-75.0) Lymphocytes (%) (Auto) % (20.0-45.0) Monocytes (%) (Auto) % (1.0-10.0) Eosinophils (%) (Auto) % (0.0-3.0) Basophils (%) (Auto) % (0.0-2.0) Differential Total Cells Counted 100 Neutrophils % (Manual) 91 % (45-75) H Lymphocytes % (Manual) 5 % (20-45) L Monocytes % (Manual) 2 % (1-10) Eosinophils % (Manual) 2 % (0-3) Basophils % (Manual) 0 % (0-2) Band Neutrophils 0 % (0-8) Platelet Estimate Decreased L Platelet Morphology Normal Sodium Level 132 MMOL/L (136-145) L Potassium Level 4.4 MMOL/L (3.5-5.1) Chloride Level 97 MMOL/L (98-107) L Carbon Dioxide Level 25 MMOL/L (21-32) Anion Gap 10 mmol/L (5-15) Blood Urea Nitrogen 61 mg/dL (7-18) H Creatinine 7.6 MG/DL (0.55-1.30) H Estimat Glomerular Filtration Rate 7.1 mL/min (>60) Glucose Level 86 MG/DL (74-106) Calcium Level 8.9 MG/DL (8.5-10.1) Troponin I 0.903 ng/mL (0.000-0.056) Random Vancomycin Level 15.6 ug/mL Microbiology Date/Time Source Procedure Growth Status 02/03/19 18:45 Blood Blood Culture - Preliminary Staphylococcus Species Resulted 02/03/19 18:30 Blood Blood Culture - Preliminary Staphylococcus Species Resulted Objective HEENT: The head is normocephalic and atraumatic. Pupils are equal, round, and reactive to light and accommodation consensually. NECK: Supple. Trachea is midline. There was no lymphadenopathy or thyromegaly. LUNGS: Clear to auscultation and percussion. HEART: Irregular rate and rhythm without rubs, murmurs, or gallops. ABDOMEN: Soft and nontender. Bowel sounds were active. EXTREMITIES: No clubbing, cyanosis, or edema. He has a left upper arm AV fistula with thrill and bruit. NEUROLOGIC: He is alert, but confused. There were no gross focal findings. Royer Doe MD Feb 05, 2019 13:03
--- NOTE | 2019-02-05 13:29 | Nephrology Progress Note ---
Assessment/Plan Plan [facility] sepsis - PC Dc'ed. On IV Vanco, RVR A. Fib - on Oral meds per Card. ESRD HD MWF Subjective Subjective Transferred to ICU then to "SDU" to to RVR A. Fib. after HD Objective Objective Last 24 Hour Vital Signs Date Time Temp Pulse Resp B/P (MAP) Pulse Ox O2 Delivery O2 Flow Rate FiO2 02/05/19 11:37 157 02/05/19 11:28 98.8 130 20 120/80 (93) 95 02/05/19 10:36 129 02/05/19 09:00 Room Air 02/05/19 08:16 143/75 02/05/19 08:13 66 02/05/19 07:53 80 143/75 02/05/19 07:52 80 143/75 02/05/19 07:50 98.8 80 20 143/75 (97) 95 02/05/19 06:09 98.8 02/05/19 05:14 98.8 02/05/19 04:00 100.9 76 21 115/76 (89) 97 02/05/19 04:00 76 02/05/19 00:00 100.2 77 20 140/68 (92) 96 02/05/19 00:00 77 02/04/19 21:00 Nasal Cannula 2.0 02/04/19 20:00 100.4 72 20 123/58 (79) 92 02/04/19 20:00 72 02/04/19 16:29 80 02/04/19 16:07 97.9 02/04/19 15:49 97.9 79 20 144/79 (100) 99 Intake and Output 02/04/19 02/05/19 19:00 07:00 Intake Total 1340.0 ml 400 ml Output Total 300 ml Balance 1340.0 ml 100 ml Intake Oral 1010 ml 400 ml IV Total 330.0 ml Output Urine Total 300 ml # Voids 3 # Bowel Movements 1 Laboratory Tests 02/04/19 13:30: Prothrombin Time 13.3H, Prothromb Time International Ratio 1.3H, Activated Partial Thromboplast Time 36H 02/05/19 06:06: White Blood Count 4.5#L, Red Blood Count 2.86L, Hemoglobin 9.2L, Hematocrit 27.7L, Mean Corpuscular Volume 97, Mean Corpuscular Hemoglobin 32.1H, Mean Corpuscular Hemoglobin Concent 33.2, Red Cell Distribution Width 13.3, Platelet Count 76L, Mean Platelet Volume 6.6, Neutrophils (%) (Auto) , Lymphocytes (%) ( Auto) , Monocytes (%) (Auto) , Eosinophils (%) (Auto) , Basophils (%) (Auto) , Differential Total Cells Counted 100, Neutrophils % (Manual) 91H, Lymphocytes % (Manual) 5L, Monocytes % (Manual) 2, Eosinophils % (Manual) 2, Basophils % ( Manual) 0, Band Neutrophils 0, Platelet Estimate DecreasedL, Platelet Morphology Normal, Sodium Level 132L, Potassium Level 4.4, Chloride Level 97L, Carbon Dioxide Level 25, Anion Gap 10, Blood Urea Nitrogen 61H, Creatinine 7.6H , Estimat Glomerular Filtration Rate 7.1, Glucose Level 86, Calcium Level 8.9, Troponin I 0.903H, Random Vancomycin Level 15.6 Height (Feet): 5 Height (Inches): 9.00 Weight (Pounds): 157 Objective Cachectic. CV IRR +tach ~ 120. Lungs CTA Abd SNT. BS + E no CCE. CARLOS MANUEL AVF + Salome Gray MD Feb 05, 2019 13:29
[2019-02-05] MEDS ORDERED: Amiodarone 200mg tab ORAL SCH (14:00)
[2019-02-05] MEDS ORDERED: dilTIAZem HCl 30mg tab ORAL SCH (14:00)
--- NOTE | 2019-02-05 14:00 | NUR ---
NURSE NOTES: per dr cid, no parameters for heparin. administer pls.
--- NOTE | 2019-02-05 14:15 | NUR ---
P.T Note: P.T evaluation on hold due to unstable vitals. Pt was transferred to [facility] for further medical monitoring and management. Hold P.T evaluation this time. MD please re order when/as stable. Thank you.
[2019-02-05] MEDS ORDERED: OLANZapine 2.5mg tab ORAL SCH (14:30)
[2019-02-05] MEDS ORDERED: Heparin Sod 1000 units/ml 10ml IV SCH (14:45)
[2019-02-05] MEDS ORDERED: Lexiscan 0.4mg/5ml syringe IV SCH (14:45)
[2019-02-05] MEDS ORDERED: cefTRIAXone 1 GM in D5W 55 ML IVPB SCH (15:00)
[2019-02-05] MEDS ORDERED: HYDROcodone/Acetamin 5/325 tab ORAL PRN (15:15)
--- NOTE | 2019-02-05 15:27 | Infectious Diseases Prog Note ---
Assessment/Plan Assessment/Plan A: sepsis Bacteremia with staph species HD line infection ESRD on HD Atrial fibrillation with RVR P: Continue Vancomycin & Rocephin Will f/u cultures Subjective ROS Limited/Unobtainable: No Constitutional: Reports: other - doing better; Denies: fever Respiratory: Reports: no symptoms Cardiovascular: Reports: no symptoms, other - Porthacath was removed Gastrointestinal/Abdominal: Reports: no symptoms Allergies: Coded Allergies: No Known Allergies (Unverified , 06/11/18) Objective Vital Signs Last 24 Hour Vital Signs Date Time Temp Pulse Resp B/P (MAP) Pulse Ox O2 Delivery O2 Flow Rate FiO2 02/05/19 12:30 98.4 132 19 133/68 (89) 95 02/05/19 12:30 132 19 131/66 (87) 96 02/05/19 12:00 98.4 130 19 133/68 (89) 95 02/05/19 11:37 157 02/05/19 11:28 98.8 130 20 120/80 (93) 95 02/05/19 10:36 129 02/05/19 09:00 Room Air 02/05/19 08:16 143/75 02/05/19 08:13 66 02/05/19 07:53 80 143/75 02/05/19 07:52 80 143/75 02/05/19 07:50 98.8 80 20 143/75 (97) 95 02/05/19 06:09 98.8 02/05/19 05:14 98.8 02/05/19 04:00 100.9 76 21 115/76 (89) 97 02/05/19 04:00 76 02/05/19 00:00 100.2 77 20 140/68 (92) 96 02/05/19 00:00 77 02/04/19 21:00 Nasal Cannula 2.0 02/04/19 20:00 100.4 72 20 123/58 (79) 92 02/04/19 20:00 72 02/04/19 16:29 80 02/04/19 16:07 97.9 02/04/19 15:49 97.9 79 20 144/79 (100) 99 Height (Feet): 5 Height (Inches): 9.00 Weight (Pounds): 157 General Appearance: no acute distress HEENT: mucous membranes moist Respiratory/Chest: lungs clear Cardiovascular: tachycardia Abdomen: soft, non tender Extremities: no edema Neurologic/Psychiatric: alert, oriented x 3, responsive Microbiology Date/Time Source Procedure Growth Status 02/03/19 18:45 Blood Blood Culture - Preliminary Staphylococcus Species Resulted 02/03/19 18:30 Blood Blood Culture - Preliminary Staphylococcus Species Resulted Laboratory Tests Test 02/05/19 06:06 White Blood Count 4.5 K/UL (4.8-10.8) #L Red Blood Count 2.86 M/UL (4.70-6.10) L Hemoglobin 9.2 G/DL (14.2-18.0) L Hematocrit 27.7 % (42.0-52.0) L Mean Corpuscular Volume 97 FL (80-99) Mean Corpuscular Hemoglobin 32.1 PG (27.0-31.0) H Mean Corpuscular Hemoglobin Concent 33.2 G/DL (32.0-36.0) Red Cell Distribution Width 13.3 % (11.6-14.8) Platelet Count 76 K/UL (150-450) L Mean Platelet Volume 6.6 FL (6.5-10.1) Neutrophils (%) (Auto) % (45.0-75.0) Lymphocytes (%) (Auto) % (20.0-45.0) Monocytes (%) (Auto) % (1.0-10.0) Eosinophils (%) (Auto) % (0.0-3.0) Basophils (%) (Auto) % (0.0-2.0) Differential Total Cells Counted 100 Neutrophils % (Manual) 91 % (45-75) H Lymphocytes % (Manual) 5 % (20-45) L Monocytes % (Manual) 2 % (1-10) Eosinophils % (Manual) 2 % (0-3) Basophils % (Manual) 0 % (0-2) Band Neutrophils 0 % (0-8) Platelet Estimate Decreased L Platelet Morphology Normal Sodium Level 132 MMOL/L (136-145) L Potassium Level 4.4 MMOL/L (3.5-5.1) Chloride Level 97 MMOL/L (98-107) L Carbon Dioxide Level 25 MMOL/L (21-32) Anion Gap 10 mmol/L (5-15) Blood Urea Nitrogen 61 mg/dL (7-18) H Creatinine 7.6 MG/DL (0.55-1.30) H Estimat Glomerular Filtration Rate 7.1 mL/min (>60) Glucose Level 86 MG/DL (74-106) Calcium Level 8.9 MG/DL (8.5-10.1) Troponin I 0.903 ng/mL (0.000-0.056) Random Vancomycin Level 15.6 ug/mL Current Medications Medications (Trade) Dose Ordered Sig/Sobia Route PRN Reason Start Time Stop Time Status Last Admin Dose Admin Acetaminophen (Tylenol) 650 mg Q6H PRN ORAL Mild Pain/Temp > 100.5 02/05/19 15:00 03/06/19 14:59 Acetaminophen/ Hydrocodone Bitart ([place] 10/325) 1 tab Q4H PRN ORAL Severe Pain (Pain Scale 7-10) 02/05/19 15:00 02/11/19 14:59 Acetaminophen/ Hydrocodone Bitart ([place] 5/325) 1 tab Q4H PRN ORAL Moderate Pain (Pain Scale 4-6) 02/05/19 15:15 02/10/19 23:14 Albuterol/ Ipratropium (Albuterol/ Ipratropium) 3 ml Q6H PRN HHN Shortness of Breath 02/05/19 15:00 02/10/19 14:59 Amiodarone HCl (Cordarone) 400 mg EVERY 8 HOURS ORAL 02/05/19 15:00 03/07/19 14:59 Atorvastatin Calcium (Lipitor) 20 mg BEDTIME ORAL 02/05/19 21:00 03/06/19 20:59 Ceftriaxone Sodium 1 gm/ Dextrose 55 ml @ 110 mls/hr Q24H IVPB 02/05/19 15:00 02/12/19 14:59 Clopidogrel Bisulfate (Plavix) 75 mg DAILY ORAL 02/06/19 09:00 03/06/19 08:59 Diltiazem HCl (Cardizem) 30 mg EVERY 8 HOURS ORAL 02/05/19 22:00 03/07/19 13:59 Docusate Sodium (Colace) 100 mg DAILY ORAL 02/06/19 09:00 03/06/19 08:59 Donepezil HCl (Aricept) 5 mg DAILY ORAL 02/06/19 09:00 03/06/19 08:59 Epoetin Robert (Epoetin Robert(ESRD on dialysis)) 6,000 unit FRI-FRI-FRI SUBQ 02/05/19 21:00 03/07/19 20:59 Famotidine (Pepcid) 20 mg DAILY ORAL 02/06/19 09:00 03/06/19 08:59 Heparin Sodium (Porcine) (Heparin 5000 units/ml) 5,000 units EVERY 12 HOURS SUBQ 02/05/19 21:00 03/07/19 20:59 Heparin Sodium (Porcine) (Heparin Sod 1000 units/ml 10ml) 2,000 unit ONCE IV 02/05/19 14:45 02/05/19 23:59 Levothyroxine Sodium (Synthroid) 25 mcg 0630 ORAL 02/06/19 06:30 03/06/19 06:29 Metoprolol Tartrate (Lopressor) 100 mg EVERY 12 HOURS ORAL 02/05/19 21:00 03/07/19 20:59 Olanzapine (ZyPREXA) 2.5 mg TID ORAL 02/05/19 18:00 03/07/19 14:29 Regadenoson (Lexiscan) 0.4 mg ONCE IV 02/05/19 14:45 02/07/19 14:44 Sevelamer Carbonate (Renvela) 800 mg THREE TIMES A DAY ORAL 02/05/19 18:00 03/06/19 08:59 Sodium Chloride 1,000 ml @ 500 mls/hr Q2H PRN IVLG sbp<90 during hd 02/05/19 14:45 02/05/19 23:59 Tamsulosin HCl (Flomax) 0.4 mg DAILY ORAL 02/06/19 09:00 03/06/19 08:59 Vancomycin HCl (Vanco rx to dose) 1 ea DAILY PRN MISC Per rx protocol 02/06/19 09:00 03/06/19 11:14 Fidencio Young MD Feb 05, 2019 15:27
--- NOTE | 2019-02-05 15:30 | Consultation ---
DATE OF CONSULTATION: 02/04/2019 INFECTIOUS DISEASE CONSULTATION CONSULTING PHYSICIAN: Fidencio Young M.D. PRIMARY ATTENDING: Nahun Calvo M.D. This consult is for coverage of Dr. Moy. REASON FOR CONSULT: Fever and rule out of line sepsis. HISTORY OF PRESENT ILLNESS: This is a 68-year-old white male admitted yesterday complaining of chest pain and discomfort. At the time of admission, he had fever up to 102.3. The patient had end-stage renal disease on hemodialysis and has a PermCath. Primary team are also concerned about line infection. PAST MEDICAL HISTORY: Hypertension, end-stage renal disease on hemodialysis, asthma, anemia, cardiomyopathy status post AICD, hypothyroidism. ALLERGIES: No known drug allergies. MEDICATIONS: Atorvastatin, losartan, allopurinol, amlodipine, Plavix, Colace, Aricept, aspirin, Renvela, Flomax, metoprolol, levothyroxine, Tylenol, [place], morphine. SOCIAL HISTORY: . Smoking one pack cigarettes a day. Had history of alcohol abuse until one year ago. PAST SURGICAL HISTORY: Has history of PermCath placement, AICD, left upper extremity shunt placement. REVIEW OF SYSTEMS: Has dry coughing. No sore throat. No runny nose. Fever as mentioned. Diffuse chest pain bilaterally. No nausea. No vomiting. No diarrhea. Makes small amount of urine. PHYSICAL EXAMINATION: VITAL SIGNS: Temperature 98.4, pulse 74, blood pressure 128/58. GENERAL APPEARANCE: Seems to have normal weight. HEAD AND NECK: [place] conjunctiva. LUNGS: Clear. HEART: Has AICD. ABDOMEN: Soft, nontender, flat. EXTREMITIES: Has no edema. Has left upper extremity AV shunt. LABORATORY AND DIAGNOSTIC DATA: Hemoglobin 10.8, hematocrit 29.5, WBC 10.9, platelets 84. Sodium 138, potassium 4.9, chloride 101, bicarbonate 26, BUN 36, creatinine 6.2. Troponin elevated 0.998. BNP elevated more than 35,000. Chest x-ray showed pulmonary vascular congestion, edema, small right pleural effusion in the right middle lobe, atelectasis, edema, or pneumonia. Blood culture x2 growing gram-positive cocci in cluster. IMPRESSION: Fever and bacteremia, likely secondary to sepsis. May have pneumonia or atelectasis in the right lung. Had end-stage renal disease, on hemodialysis. Had elevated troponin and BNP, likely non-STMI. Has cardiomegaly, anemia, thrombocytopenia, hypothyroidism, major depression with anxiety, mild dementia. RECOMMENDATION: The patient was started on IV vancomycin and ceftriaxone. We will follow up the cultures. At the end of my exam, I thank Dr. Calvo for involving me in the care of this patient. Fidencio Young M.D. DR: VLADISLAV JOB#: [id number] CC:
[2019-02-05] MEDS: Amiodarone 200mg tab ORAL SCH ×2 (15:48→22:26)
[2019-02-05] MEDS: OLANZapine 2.5mg tab ORAL SCH (17:05)
--- NOTE | 2019-02-05 19:16 | NUR ---
HAND-OFF: Report given to jed norman.
[2019-02-05] MEDS ORDERED: Vancomycin 1.5gm/NS Premix IVPB ONE (20:30)
[2019-02-05] MEDS: Metoprolol Tartrate 100mg tab ORAL SCH (20:37)
[2019-02-05] MEDS: Atorvastatin 20mg tab ORAL SCH (20:37)
[2019-02-05] MEDS: Heparin 5000 units/ml inj SUBQ SCH (20:38)
[2019-02-05] MEDS ORDERED: Heparin 5000 units/ml inj SUBQ SCH (21:00)
[2019-02-05] MEDS ORDERED: Epoetin Alfa-EPBX(ESRD on dialysis)3000 units/ml vial SUBQ SCH ×2 (21:00)
[2019-02-05] MEDS ORDERED: Metoprolol Tartrate 100mg tab ORAL SCH (21:00)
[2019-02-05] MEDS ORDERED: Atorvastatin 20mg tab ORAL SCH (21:00)
[2019-02-05] MEDS: dilTIAZem HCl 30mg tab ORAL SCH (22:26)
[2019-02-05] MEDS: HYDROcodone/Acetamin 10/325 tab ORAL PRN (22:26)
--- NOTE | 2019-02-05 23:33 | NUR ---
HAND-OFF: Report given to Lulu FLOWERS.:
--- NOTE | 2019-02-05 23:34 | NUR ---
NURSE NOTES: Received patient from KRISTIE Luz. Will continue plan of care.
[2019-02-06] VITALS: BP 122/59
--- NOTE | 2019-02-06 03:30 | Consultation ---
DATE OF CONSULTATION: 02/05/2019 CONSULTING PHYSICIAN: Myesha Pedraza M.D. HISTORY OF PRESENT ILLNESS: This is a 68-year-old male with a history of multiple medical comorbidities. He has been admitted to the hospital for medical stabilization. The patient still has history of end-stage renal disease, on dialysis on Friday, Friday, and Friday. The patient is having a history of dementia and schizophrenia. During evaluation, he was confused, has been uncooperative with the staff and being agitated and responding to internal stimuli. During evaluation, he was unable to provide meaningful history and was disoriented and disorganized. PAST PSYCHIATRIC HISTORY: Schizophrenia and dementia. He has been on psychotropic medications. PAST MEDICAL HISTORY: End-stage renal failure, on dialysis; hypertension; and chronic kidney disease. ALLERGIES: No known drug allergies. SUBSTANCE ABUSE HISTORY: No known history of illicit drug use or alcohol. MENTAL STATUS EXAMINATION: The patient is alert and oriented times to self. Mood is anxious. Affect is flat. Thought process is disorganized. Thought content, no suicidal or homicidal ideation. Cognition is impaired. Insight and judgment are impaired. ASSESSMENT: [place] I Dementia with behavioral disturbance. Schizophrenia. [place] II Deferred. [place] III As above. [place] IV Low. [place] V 20. PLAN: 1. We will continue Zyprexa. 2. Hold the medications while the patient is deeply sedated. 3. Continue to follow and readjust the medications. Myesha Pedraza M.D. DR: NADIR JOB#: [id number] CC:
--- NOTE | 2019-02-06 04:10 | NUR ---
NURSE NOTES: Patient took off right upper chest dressing and night monitor, walked into the hallway and threw 2 pills (a cream color and blue color) stating "I dont need these". Assisted patient back into bed and placed night monitor back onto patient, reinforce teaching of the purpose of the night monitor. Patient refuses to have a dressing replaced onto his chest.
--- NOTE | 2019-02-06 05:44 | NUR ---
NURSE NOTES: Patient is assertive and non-compliant. Patient removed his hospital gown and pants and placed it on the floor stating to leave it and he will pick it up later. Also refusing his 0600 medications stating that he knows what he did wrong and acknowledges that he needs to change his lifestyle and that medications are not needed anymore. Medication education provided, patient still refuse.
[2019-02-06] MEDS: Amiodarone 200mg tab ORAL SCH ×3 (06:00→21:32)
[2019-02-06] MEDS: dilTIAZem HCl 30mg tab ORAL SCH ×3 (06:00→21:32)
[2019-02-06] MEDS: Levothyroxine 25mcg tab ORAL SCH (06:06)
[2019-02-06 06:12] VITALS: BP 139/69
--- NOTE | 2019-02-06 06:14 | NUR ---
NURSE NOTES: Patient continues to refuse 0600 medications but agreed to have his vital signs taken. Vital signs are documented.
--- NOTE | 2019-02-06 07:04 | NUR ---
HAND-OFF: Report given to KRISTIE Mccabe.
--- NOTE | 2019-02-06 07:05 | NUR ---
HAND-OFF: Report given to KRISTIE Mccabe.
[2019-02-06] MEDS ORDERED: Lexiscan 0.4mg/5ml syringe IV PRN (07:30)
--- NOTE | 2019-02-06 07:41 | NUR ---
NURSE NOTES: received patient report from isacc norman. patient is on bed awake. not in acute distress. ambulating. bed is low and locked for safety. will follow plan of care.
--- NOTE | 2019-02-06 07:50 | General Progress Note ---
Progress Note Progress Note Patient seen and examined Hx of sepsis & right chest permcath removed Left arm av shunt functional with 2+ thrill Rec HD via left arm av shunt Abx per ID D/C planning per renal Mateo Arriola MD Feb 06, 2019 07:50
[2019-02-06 08:00] VITALS: BP 125/76
[2019-02-06] MEDS: Tamsulosin 0.4mg cap ORAL SCH (08:27)
[2019-02-06] MEDS: Metoprolol Tartrate 100mg tab ORAL SCH ×2 (08:27→21:00)
[2019-02-06] MEDS: OLANZapine 2.5mg tab ORAL SCH ×3 (08:28→17:04)
[2019-02-06] MEDS: Donepezil 5mg Tab ORAL SCH (08:28)
[2019-02-06] MEDS: Docusate 100mg/10ml Liq ORAL SCH (08:29)
[2019-02-06] MEDS: Heparin 5000 units/ml inj SUBQ SCH ×3 (08:29→21:32)
--- NOTE | 2019-02-06 09:58 | Infectious Diseases Prog Note ---
Assessment/Plan Assessment/Plan antibiotics : vancomycin iv, ceftriaxone A 1. staph aureus sepsis s/p catheter removal 2. renal failure on HD 3, hypertension 4. cardiomyopathy P 1. d/c vancomycin, ceftriaxone 2. start ancef 3. will follow up culture 4. 2 d echo 5. blood culture Subjective ROS Limited/Unobtainable: Yes Allergies: Coded Allergies: No Known Allergies (Unverified , 06/11/18) Objective Vital Signs Last 24 Hour Vital Signs Date Time Temp Pulse Resp B/P (MAP) Pulse Ox O2 Delivery O2 Flow Rate FiO2 02/06/19 09:00 Room Air 02/06/19 08:27 110 125/76 02/06/19 08:00 97.7 110 22 125/76 (92) 94 02/06/19 07:55 124 02/06/19 06:12 98.8 106 24 139/69 (92) 92 02/06/19 06:00 88 122/59 02/06/19 04:00 Room Air 02/06/19 03:47 88 02/06/19 00:00 Room Air 02/06/19 00:00 99.7 105 24 122/59 (80) 95 02/05/19 23:47 105 02/05/19 23:10 99.6 02/05/19 22:26 115 134/74 02/05/19 21:00 Room Air 02/05/19 20:37 115 134/74 02/05/19 20:00 99.6 115 21 134/74 (94) 93 02/05/19 20:00 116 02/05/19 16:00 127 02/05/19 16:00 99.6 116 21 125/64 (84) 93 02/05/19 12:30 98.4 132 19 133/68 (89) 95 02/05/19 12:30 132 19 131/66 (87) 96 02/05/19 12:00 98.4 130 19 133/68 (89) 95 02/05/19 11:37 157 02/05/19 11:28 98.8 130 20 120/80 (93) 95 02/05/19 10:36 129 Height (Feet): 5 Height (Inches): 9.00 Weight (Pounds): 155 Respiratory/Chest: lungs clear Cardiovascular: normal rate, regular rhythm, no gallop/murmur Abdomen: soft, non tender Extremities: no edema Microbiology Date/Time Source Procedure Growth Status 02/03/19 18:45 Blood Blood Culture - Final Staphylococcus Aureus Complete 02/03/19 18:30 Blood Blood Culture - Final Staphylococcus Aureus Complete 02/04/19 00:15 Nasal Nares MRSA Culture - Final NO METHICILLIN RESISTANT STAPH AUREUS... Complete 02/04/19 15:15 Catheter Site Catheter Tip Culture - Preliminary Staphylococcus Aureus Resulted 02/04/19 00:15 Rectum VRE Culture - Final NO VANCOMYCIN RESISTANT ENTEROCOCCUS ... Complete Laboratory Tests Test 02/05/19 18:10 Random Vancomycin Level 12.8 ug/mL Current Medications Medications (Trade) Dose Ordered Sig/Sobia Route PRN Reason Start Time Stop Time Status Last Admin Dose Admin Acetaminophen (Tylenol) 650 mg Q6H PRN ORAL Mild Pain/Temp > 100.5 02/05/19 15:00 03/06/19 14:59 Acetaminophen/ Hydrocodone Bitart ([place] 10/325) 1 tab Q4H PRN ORAL Severe Pain (Pain Scale 7-10) 02/05/19 15:00 02/11/19 14:59 02/05/19 22:26 Acetaminophen/ Hydrocodone Bitart ([place] 5/325) 1 tab Q4H PRN ORAL Moderate Pain (Pain Scale 4-6) 02/05/19 15:15 02/10/19 23:14 Albuterol/ Ipratropium (Albuterol/ Ipratropium) 3 ml Q6H PRN HHN Shortness of Breath 02/05/19 15:00 02/10/19 14:59 Amiodarone HCl (Cordarone) 400 mg EVERY 8 HOURS ORAL 02/05/19 15:00 03/07/19 14:59 02/05/19 22:26 Atorvastatin Calcium (Lipitor) 20 mg BEDTIME ORAL 02/05/19 21:00 03/06/19 20:59 02/05/19 20:37 Ceftriaxone Sodium 1 gm/ Dextrose 55 ml @ 110 mls/hr Q24H IVPB 02/05/19 15:00 02/12/19 14:59 02/05/19 15:46 Clopidogrel Bisulfate (Plavix) 75 mg DAILY ORAL 02/06/19 09:00 03/06/19 08:59 02/06/19 08:29 Diltiazem HCl (Cardizem) 30 mg EVERY 8 HOURS ORAL 02/05/19 22:00 03/07/19 13:59 02/05/19 22:26 Docusate Sodium (Colace) 100 mg DAILY ORAL 02/06/19 09:00 03/06/19 08:59 02/06/19 08:29 Donepezil HCl (Aricept) 5 mg DAILY ORAL 02/06/19 09:00 03/06/19 08:59 02/06/19 08:28 Epoetin Robert (Epoetin Robert(ESRD on dialysis)) 6,000 unit FRI-FRI-FRI SUBQ 02/05/19 21:00 03/07/19 20:59 02/05/19 20:32 Famotidine (Pepcid) 20 mg DAILY ORAL 02/06/19 09:00 03/06/19 08:59 02/06/19 08:27 Heparin Sodium (Porcine) (Heparin 5000 units/ml) 5,000 units EVERY 12 HOURS SUBQ 02/05/19 21:00 03/07/19 20:59 Levothyroxine Sodium (Synthroid) 25 mcg 0630 ORAL 02/06/19 06:30 03/06/19 06:29 Metoprolol Tartrate (Lopressor) 100 mg EVERY 12 HOURS ORAL 02/05/19 21:00 03/07/19 20:59 02/06/19 08:27 Olanzapine (ZyPREXA) 2.5 mg TID ORAL 02/05/19 18:00 03/07/19 14:29 02/06/19 08:28 Regadenoson (Lexiscan) 0.4 mg ONCE PRN IV STRESS TEST 02/06/19 07:30 02/07/19 14:44 Sevelamer Carbonate (Renvela) 800 mg THREE TIMES A DAY ORAL 02/05/19 18:00 03/06/19 08:59 02/06/19 08:28 Tamsulosin HCl (Flomax) 0.4 mg DAILY ORAL 02/06/19 09:00 03/06/19 08:59 02/06/19 08:27 Vancomycin HCl (Vanco rx to dose) 1 ea DAILY PRN MISC Per rx protocol 02/06/19 09:00 03/06/19 11:14 Bladimir Moy MD Feb 06, 2019 09:58
[2019-02-06] MEDS: ceFAZolin sod 1 GM in D5W 55 ML IVPB SCH (11:21)
[2019-02-06 11:24] VITALS: BP 119/74
--- NOTE | 2019-02-06 13:28 | General Progress Note ---
Assessment/Plan Problem List: (1) COPD (chronic obstructive pulmonary disease) ICD Codes: J44.9 - Chronic obstructive pulmonary disease, unspecified SNOMED: 73661321 (2) Line sepsis associated with dialysis catheter ICD Codes: T82.7XXA - Infection and inflammatory reaction due to other cardiac and vascular devices, implants and grafts, initial encounter; A41.9 - Sepsis, unspecified organism SNOMED: 77561192951653 (3) Staphylococcus aureus septicemia ICD Codes: A41.01 - Sepsis due to Methicillin susceptible Staphylococcus aureus SNOMED: 834231072, 389947027094 (4) ESRD (end stage renal disease) ICD Codes: N18.6 - End stage renal disease SNOMED: 83552111 (5) Hypertensive kidney disease ICD Codes: I12.9 - Hypertensive chronic kidney disease with stage 1 through stage 4 chronic kidney disease, or unspecified chronic kidney disease SNOMED: 10163991 (6) Atrial fibrillation with rapid ventricular response ICD Codes: I48.91 - Unspecified atrial fibrillation SNOMED: 420684736813557 Assessment/Plan: dialysis 02/05 [id number]-[id number], 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 Subjective Constitutional: Reports: weakness HEENT: Reports: no symptoms Cardiovascular: Reports: irregular heart rate Respiratory: Reports: no symptoms Gastrointestinal/Abdominal: Reports: no symptoms Genitourinary: Reports: no symptoms Neurologic/Psychiatric: Reports: no symptoms Endocrine: Reports: no symptoms Hematologic/Lymphatic: Reports: no symptoms Allergies: Coded Allergies: No Known Allergies (Unverified , 06/11/18) Objective Last 24 Hour Vital Signs Date Time Temp Pulse Resp B/P (MAP) Pulse Ox O2 Delivery O2 Flow Rate FiO2 02/06/19 13:21 104 119/74 02/06/19 13:15 104 02/06/19 11:24 98.1 99 23 119/74 (89) 97 02/06/19 09:00 Room Air 02/06/19 08:27 110 125/76 02/06/19 08:00 97.7 110 22 125/76 (92) 94 02/06/19 07:55 124 02/06/19 06:12 98.8 106 24 139/69 (92) 92 02/06/19 06:00 88 122/59 02/06/19 04:00 Room Air 02/06/19 03:47 88 02/06/19 00:00 Room Air 02/06/19 00:00 99.7 105 24 122/59 (80) 95 02/05/19 23:47 105 02/05/19 23:10 99.6 02/05/19 22:26 115 134/74 02/05/19 21:00 Room Air 02/05/19 20:37 115 134/74 02/05/19 20:00 99.6 115 21 134/74 (94) 93 02/05/19 20:00 116 02/05/19 16:00 127 02/05/19 16:00 99.6 116 21 125/64 (84) 93 Intake and Output 02/05/19 02/06/19 19:00 07:00 Intake Total 360 ml 500 ml Balance 360 ml 500 ml Intake Oral 250 ml 500 ml IV Total 110 ml # Voids 1 Laboratory Tests 02/05/19 18:10: Random Vancomycin Level 12.8 Height (Feet): 5 Height (Inches): 9.00 Weight (Pounds): 155 General Appearance: no apparent distress, alert EENT: normal ENT inspection Neck: normal alignment Cardiovascular: regularly irregular Respiratory/Chest: rhonchi - bilaterally Abdomen: non tender, no organomegaly Edema: no edema noted Arm (L), no edema noted Arm (R), no edema noted Leg (L), no edema noted Leg (R), no edema noted Pedal (L), no edema noted Pedal (R), no edema noted Generalized Neurologic: lead ramp agent II-XII grossly normal Gerardo El MD Feb 06, 2019 13:28
--- NOTE | 2019-02-06 14:24 | NUR ---
CASE MANAGEMENT:REVIEW 02/06/19 SI: PERMCATH SEPSIS. ESRD T 98.1 HR 99 RR 23 B/P 119/74 SATS 97% ON RA NO LABS TODAY IS: IV ROCEPHIN Q24 LIPITOR PO QHS COZAAR PO QD NORVASC PO QD PLAVIX PO QD TOPROL XL PO QD FLOMAX PO QD : TELEMETRY STATUS DCP: FROM [facility]
[2019-02-06 16:00] VITALS: BP 132/70
--- NOTE | 2019-02-06 17:09 | Cardiology Progress Note ---
Assessment/Plan Assessment/Plan 1. Elevated troponin level, possible NSTEMI type II, chest pain free at this time, could be trop leak due to renal failure. Continue Plavix, Lipitor, and Toprol XL. Schedule stress test on Friday. 2. Hypertension, on losartan 100 mg daily, Norvasc 5 mg daily, Toprol-XL 100 mg daily/ 3. Hyperlipidemia, on Lipitor. 4. Status post [employer] subcutaneous ICD. 5. End-stage renal disease, on hemodialysis per Dr. Kim. 6. Moderate cardiomyopathy with LVEF at 45%, contniue losartan and metoprolol. Subjective Subjective Atrial fibrillation with RVR at rate of 107. Objective Last 24 Hour Vital Signs Date Time Temp Pulse Resp B/P (MAP) Pulse Ox O2 Delivery O2 Flow Rate FiO2 02/06/19 16:00 99.7 107 24 132/70 (90) 94 02/06/19 16:00 107 02/06/19 13:21 104 119/74 02/06/19 13:15 104 02/06/19 11:24 98.1 99 23 119/74 (89) 97 02/06/19 09:00 Room Air 02/06/19 08:27 110 125/76 02/06/19 08:00 97.7 110 22 125/76 (92) 94 02/06/19 07:55 124 02/06/19 06:12 98.8 106 24 139/69 (92) 92 02/06/19 06:00 88 122/59 02/06/19 04:00 Room Air 02/06/19 03:47 88 02/06/19 00:00 Room Air 02/06/19 00:00 99.7 105 24 122/59 (80) 95 02/05/19 23:47 105 02/05/19 23:10 99.6 02/05/19 22:26 115 134/74 02/05/19 21:00 Room Air 02/05/19 20:37 115 134/74 02/05/19 20:00 99.6 115 21 134/74 (94) 93 02/05/19 20:00 116 Intake and Output 02/05/19 02/06/19 18:59 06:59 Intake Total 360 ml 500 ml Balance 360 ml 500 ml Intake Oral 250 ml 500 ml IV Total 110 ml # Voids 1 2D Echo: LVEF 45% with WMA, Grdae I LVDD, Mild MR, RVSP 45 mmHg Laboratory Tests Test 02/05/19 18:10 Random Vancomycin Level 12.8 ug/mL Microbiology Date/Time Source Procedure Growth Status 02/03/19 18:45 Blood Blood Culture - Final Staphylococcus Aureus Complete 02/03/19 18:30 Blood Blood Culture - Final Staphylococcus Aureus Complete 02/04/19 00:15 Nasal Nares MRSA Culture - Final NO METHICILLIN RESISTANT STAPH AUREUS... Complete 02/04/19 15:15 Catheter Site Catheter Tip Culture - Preliminary Staphylococcus Aureus Resulted 02/04/19 00:15 Rectum VRE Culture - Final NO VANCOMYCIN RESISTANT ENTEROCOCCUS ... Complete Objective HEAD AND NECK: Shows no JVD. LUNGS: Coarse rhonchi. CARDIOVASCULAR: Irregularly irregular, normal S1 and S2 with no gallops, rubs or murmur. ABDOMEN: Soft and nontender. EXTREMITIES: No pitting edema. His defibrillator is set under left axillary line subcutaneous and his PermCath in the right chest. Royer Mckenzie MD Feb 06, 2019 17:09
--- NOTE | 2019-02-06 19:15 | NUR ---
NURSE NOTES: Received patient report from Estelle Farfan Rn. Patient in bed sleeping but easily awakened. In no apparent distress. Ambulating steadily to bathroom. SR-ST on hospital monitor. Call light w/in reach. VSS. Afebile. Denies pain or discomfort. Bruit to left AV shunt with palpable bruit. Bed is low and locked for safety. Will follow POC.
--- NOTE | 2019-02-06 19:23 | NUR ---
HAND-OFF: Report given to donnie lion rn.
[2019-02-06 20:00] VITALS: BP 127/73
[2019-02-06] MEDS: Atorvastatin 20mg tab ORAL SCH (21:00)
[2019-02-07] VITALS: BP 118/68
--- NOTE | 2019-02-07 01:00 | NUR ---
NURSE NOTES: Condition unchanged. Patient in bed sleeping but easily awakened. In no apparent distress. SR on printing services coordinator. Call light w/in reach. VSS. Afebile. Denies pain or discomfort. Bed is low and locked for safety. Will follow POC.
[2019-02-07 04:00] VITALS: BP 109/54
[2019-02-07] MEDS: dilTIAZem HCl 30mg tab ORAL SCH ×3 (06:00→21:56)
[2019-02-07] MEDS: Amiodarone 200mg tab ORAL SCH ×3 (06:29→21:57)
[2019-02-07] MEDS: Levothyroxine 25mcg tab ORAL SCH (06:30)
--- NOTE | 2019-02-07 06:45 | NUR ---
NURSE NOTES: Condition unchanged. Patient in bed sleeping but easily awakened to verbal stimuli. In no apparent distress. SR on monitor worker. Call light w/in reach. VSS. Afebile. Denies pain or discomfort. Bed is low and locked for safety. Will follow POC.
[2019-02-07 08:00] VITALS: BP 113/59
--- NOTE | 2019-02-07 08:10 | NUR ---
NURSE NOTES: received pt in the bed, awake, alert, oriented, vital signs stable, no co pain, no SOB, skin warm and dry to touch, intact, use urinal, tolerate diet well, AV shunt on left upper arm, bed in low position, call light within reach.
[2019-02-07] MEDS: ceFAZolin sod 1 GM in D5W 55 ML IVPB SCH (08:35)
[2019-02-07] MEDS: Tamsulosin 0.4mg cap ORAL SCH (08:35)
[2019-02-07] MEDS: Donepezil 5mg Tab ORAL SCH (08:35)
[2019-02-07] MEDS: Docusate 100mg/10ml Liq ORAL SCH (08:36)
[2019-02-07] MEDS: OLANZapine 2.5mg tab ORAL SCH ×3 (08:36→17:56)
[2019-02-07] MEDS: Metoprolol Tartrate 100mg tab ORAL SCH ×2 (08:37→21:00)
[2019-02-07] MEDS: Heparin 5000 units/ml inj SUBQ SCH ×2 (09:00→20:29)
[2019-02-07] MEDS: HYDROcodone/Acetamin 10/325 tab ORAL PRN ×2 (11:34→20:54)
[2019-02-07 12:00] VITALS: BP 113/60
--- NOTE | 2019-02-07 12:30 | NUR ---
NURSE NOTES: pt resting, no co pain, vital signs stable, continue monitoring.
--- NOTE | 2019-02-07 14:13 | Nephrology Progress Note ---
Assessment/Plan Problem List: (1) COPD (chronic obstructive pulmonary disease) (2) Line sepsis associated with dialysis catheter (3) Staphylococcus aureus septicemia (4) ESRD (end stage renal disease) (5) Hypertensive kidney disease (6) Atrial fibrillation with rapid ventricular response Plan continue antibiotics, use avf on HD 02/08 Subjective Constitutional: Reports: no symptoms HEENT: Reports: no symptoms Genitourinary: Reports: no symptoms Neurologic/Psychiatric: Reports: no symptoms Objective Objective Last 24 Hour Vital Signs Date Time Temp Pulse Resp B/P (MAP) Pulse Ox O2 Delivery O2 Flow Rate FiO2 02/07/19 12:04 98.1 02/07/19 12:00 68 02/07/19 12:00 97.2 76 20 113/60 (77) 94 02/07/19 09:05 98.1 02/07/19 09:00 Room Air 02/07/19 08:37 65 113/59 02/07/19 08:00 98.1 65 19 113/59 (77) 93 02/07/19 08:00 70 02/07/19 06:00 66 109/54 02/07/19 04:00 66 02/07/19 04:00 98.1 66 20 109/54 (72) 94 02/07/19 03:44 65 02/07/19 00:00 98.9 74 20 118/68 (85) 94 02/07/19 00:00 76 02/06/19 21:32 82 127/73 02/06/19 21:00 82 127/73 02/06/19 21:00 Room Air 02/06/19 20:00 84 02/06/19 20:00 98.2 82 20 127/73 (91) 95 02/06/19 16:00 99.7 107 24 132/70 (90) 94 02/06/19 16:00 107 Intake and Output 02/06/19 02/07/19 19:00 07:00 Intake Total 760 ml 50 ml Output Total 200 ml Balance 560 ml 50 ml Intake Oral 650 ml 50 ml IV Total 110 ml Output Urine Total 200 ml Height (Feet): 5 Height (Inches): 9.00 Weight (Pounds): 158 General Appearance: no apparent distress, alert EENT: normal ENT inspection Neck: normal alignment Cardiovascular: regularly irregular Respiratory/Chest: lungs clear Abdomen: non tender, soft Extremities: no edema Neurologic: planning aide II-XII grossly normal Gerardo El MD Feb 07, 2019 14:12
[2019-02-07 16:00] VITALS: BP 119/60
--- NOTE | 2019-02-07 19:20 | NUR ---
HAND-OFF: Report given to ESTUARDO FLOWERS.
--- NOTE | 2019-02-07 19:21 | NUR ---
NURSE NOTES: received pt from Cabrera FLOWERS., pt is awake and AO x3 and forgetful. and pt is resting on the bed, pt states no pain at this moment. no SOB noted at this time.Left upper arm shunt noted with trill and bruit. right FA 22G is clean, patent and intact. call light within reach. will continue to monitor with plan of care. Addendum: 02/07/19 at 2204 by ORAL MARTE RN wrong info
[2019-02-07 20:00] VITALS: BP 113/62
--- NOTE | 2019-02-07 20:24 | NUR ---
NURSE NOTES: per Dr. Kim, hold heparin due to plt is 76. noted and carry on .
[2019-02-07] MEDS: Atorvastatin 20mg tab ORAL SCH (20:53)
--- NOTE | 2019-02-07 22:16 | Cardiology Progress Note ---
Assessment/Plan Assessment/Plan 1. Elevated troponin level, possible NSTEMI type II, chest pain free at this time, could be trop leak due to renal failure. Continue Plavix, Lipitor, and Toprol XL. Given severe LV systolic dysfunction would have to proceed with left heart cath and coronary angiography, CM notified to transfer to [facility]. Will discuss with Dr. Kim. 2. Hypertension, on losartan 100 mg daily, Norvasc 5 mg daily, Toprol-XL 100 mg daily/ 3. Hyperlipidemia, on Lipitor. 4. Status post [employer] subcutaneous ICD. 5. End-stage renal disease, on hemodialysis. 6. Moderate cardiomyopathy with LVEF at 45%, continue losartan and metoprolol. Subjective Subjective Atrial fibrillation with CVR at rate of 63. Objective Last 24 Hour Vital Signs Date Time Temp Pulse Resp B/P (MAP) Pulse Ox O2 Delivery O2 Flow Rate FiO2 02/07/19 21:56 63 113/62 02/07/19 21:00 70 113/62 02/07/19 20:00 73 02/07/19 20:00 Room Air 02/07/19 20:00 97.7 70 18 113/62 (79) 96 02/07/19 16:00 97.5 65 19 119/60 (79) 63 02/07/19 16:00 64 02/07/19 14:17 68 113/60 02/07/19 12:04 98.1 02/07/19 12:00 68 02/07/19 12:00 97.2 76 20 113/60 (77) 94 02/07/19 09:05 98.1 02/07/19 09:00 Room Air 02/07/19 08:37 65 113/59 02/07/19 08:00 98.1 65 19 113/59 (77) 93 02/07/19 08:00 70 02/07/19 06:00 66 109/54 02/07/19 04:00 66 02/07/19 04:00 98.1 66 20 109/54 (72) 94 02/07/19 03:44 65 02/07/19 00:00 98.9 74 20 118/68 (85) 94 02/07/19 00:00 76 Intake and Output 02/06/19 02/07/19 18:59 06:59 Intake Total 760 ml 50 ml Output Total 200 ml Balance 560 ml 50 ml Intake Oral 650 ml 50 ml IV Total 110 ml Output Urine Total 200 ml 2D Echo: EF 30%, global LV wall akinesia exc. basal seg, Gr I LVDD, Mild MR, RVSP 45 Microbiology Date/Time Source Procedure Growth Status 02/06/19 12:20 Blood Blood Culture - Preliminary Resulted Objective HEAD AND NECK: Shows no JVD. LUNGS: Coarse rhonchi. CARDIOVASCULAR: Irregularly irregular, normal S1 and S2 with no gallops, rubs or murmur. ABDOMEN: Soft and nontender. EXTREMITIES: No pitting edema. Defibrillator placed under left axillary line, PermCath in the right chest. Royer Mckenzie MD Feb 07, 2019 22:16
--- NOTE | 2019-02-07 22:25 | NUR ---
NURSE NOTES: Dr. Mckenzie saw the pt, will continue to monitor pt.
--- NOTE | 2019-02-07 23:45 | NUR ---
NURSE NOTES: per Dr. Mckenzie, will cancle Cardiac stress test. will carry on.
[2019-02-08] VITALS (7 sets, daily range): BP systolic 113–134; BP diastolic 55–91
--- NOTE | 2019-02-08 03:28 | NUR ---
NURSE NOTES: called and made appt with LEVY Gurrola for today 02/08/19.
--- NOTE | 2019-02-08 04:00 | NUR ---
NURSE NOTES: Received patient report from Aleena Hernandez Rn. Patient in bed sleeping but easily awakened. In no apparent distress. Ambulating steadily to bathroom. SR on monitoring analyst. Call light w/in reach. VSS. Afebile. Denies pain or discomfort. Bruit to left AV shunt with palpable bruit. Bed is low and locked for safety. Will follow POC.
--- NOTE | 2019-02-08 04:24 | NUR ---
HAND-OFF: Report given to Jaime FLOWERS. pt is in stable condition.
[2019-02-08 05:48] LABS: HEMATOCRIT 27.3 % (42.0-52.0); HEMOGLOBIN 9.2 G/DL (14.2-18.0); MEAN CORPUSCULAR VOLUME 95 FL (80-99); PLATELET COUNT 97 K/UL (150-450); RED BLOOD COUNT 2.88 M/UL (4.70-6.10); WHITE BLOOD COUNT 4.6 K/UL (4.8-10.8)
[2019-02-08] MEDS: dilTIAZem HCl 30mg tab ORAL SCH ×3 (06:00→21:50)
[2019-02-08] MEDS: Amiodarone 200mg tab ORAL SCH ×2 (06:00→13:53)
[2019-02-08 06:12] LABS: ANION GAP 8 mmol/L (5-15); BLOOD UREA NITROGEN 73 mg/dL (7-18); CALCIUM 8.8 MG/DL (8.5-10.1); CARBON DIOXIDE 25 MMOL/L (21-32); CHLORIDE 98 MMOL/L (98-107); CREATININE 7.8 MG/DL (0.55-1.30); POTASSIUM 4.4 MMOL/L (3.5-5.1); SODIUM 131 MMOL/L (136-145)
[2019-02-08] MEDS: Levothyroxine 25mcg tab ORAL SCH (06:30)
--- NOTE | 2019-02-08 07:30 | NUR ---
received pt. awake alert oriented x4 skin w&d to touch moving all extremeties well ,on hd going through his av fistula in lt. upper arm, on RA TOLERATE WELL,SB ON SCOPE
--- NOTE | 2019-02-08 09:00 | NUR ---
dilysis finished vs stable 2.5 L out
[2019-02-08] MEDS: Tamsulosin 0.4mg cap ORAL SCH (09:14)
[2019-02-08] MEDS ORDERED: Levothyroxine 25mcg tab ORAL SCH (09:15)
[2019-02-08] MEDS: Donepezil 5mg Tab ORAL SCH (09:15)
[2019-02-08] MEDS: OLANZapine 2.5mg tab ORAL SCH ×3 (09:15→17:56)
[2019-02-08] MEDS: Docusate 100mg/10ml Liq ORAL SCH (09:15)
[2019-02-08] MEDS: ceFAZolin sod 1 GM in D5W 55 ML IVPB SCH (09:16)
[2019-02-08] MEDS: Heparin 5000 units/ml inj SUBQ SCH ×2 (09:19→21:53)
[2019-02-08] MEDS: Metoprolol Tartrate 100mg tab ORAL SCH ×2 (09:32→21:51)
--- NOTE | 2019-02-08 10:59 | Infectious Diseases Prog Note ---
Assessment/Plan Assessment/Plan antibiotics : ancef A 1. staph aureus sepsis s/p catheter removal 2. renal failure on HD 3, hypertension 4. cardiomyopathy P 1. continue ancef 2. will follow up cultures 3. blood culture 4. 2 d echo pending Subjective Constitutional: Denies: fever, chills Respiratory: Denies: shortness of breath, dry cough Gastrointestinal/Abdominal: Denies: nausea, vomiting, diarrhea Musculoskeletal: Denies: pain Allergies: Coded Allergies: No Known Allergies (Unverified , 06/11/18) Objective Vital Signs Last 24 Hour Vital Signs Date Time Temp Pulse Resp B/P (MAP) Pulse Ox O2 Delivery O2 Flow Rate FiO2 02/08/19 09:32 64 134/64 02/08/19 08:00 97.6 64 20 134/64 (87) 96 02/08/19 08:00 55 02/08/19 08:00 Room Air 02/08/19 04:00 98.4 56 20 126/91 (103) 96 02/08/19 04:00 Room Air 02/08/19 04:00 55 02/08/19 00:00 98.0 54 18 113/62 (79) 96 02/08/19 00:00 Room Air 02/07/19 23:34 54 02/07/19 21:56 63 113/62 02/07/19 21:00 70 113/62 02/07/19 20:00 73 02/07/19 20:00 Room Air 02/07/19 20:00 97.7 70 18 113/62 (79) 96 02/07/19 16:00 97.5 65 19 119/60 (79) 63 02/07/19 16:00 64 02/07/19 14:17 68 113/60 02/07/19 12:04 98.1 02/07/19 12:00 68 02/07/19 12:00 97.2 76 20 113/60 (77) 94 Height (Feet): 5 Height (Inches): 9.00 Weight (Pounds): 156 Respiratory/Chest: lungs clear Cardiovascular: normal rate, regular rhythm, no gallop/murmur Abdomen: soft, non tender Extremities: no edema Microbiology Date/Time Source Procedure Growth Status 02/06/19 12:20 Blood Blood Culture - Preliminary Staphylococcus Species Resulted Laboratory Tests Test 02/08/19 05:05 White Blood Count 4.6 K/UL (4.8-10.8) L Red Blood Count 2.88 M/UL (4.70-6.10) L Hemoglobin 9.2 G/DL (14.2-18.0) L Hematocrit 27.3 % (42.0-52.0) L Mean Corpuscular Volume 95 FL (80-99) Mean Corpuscular Hemoglobin 31.9 PG (27.0-31.0) H Mean Corpuscular Hemoglobin Concent 33.7 G/DL (32.0-36.0) Red Cell Distribution Width 13.0 % (11.6-14.8) Platelet Count 97 K/UL (150-450) L Mean Platelet Volume 6.6 FL (6.5-10.1) Neutrophils (%) (Auto) % (45.0-75.0) Lymphocytes (%) (Auto) % (20.0-45.0) Monocytes (%) (Auto) % (1.0-10.0) Eosinophils (%) (Auto) % (0.0-3.0) Basophils (%) (Auto) % (0.0-2.0) Neutrophils % (Manual) Pending Lymphocytes % (Manual) Pending Platelet Estimate Pending Platelet Morphology Pending Sodium Level 131 MMOL/L (136-145) L Potassium Level 4.4 MMOL/L (3.5-5.1) Chloride Level 98 MMOL/L (98-107) Carbon Dioxide Level 25 MMOL/L (21-32) Anion Gap 8 mmol/L (5-15) Blood Urea Nitrogen 73 mg/dL (7-18) H Creatinine 7.8 MG/DL (0.55-1.30) H Estimat Glomerular Filtration Rate 6.9 mL/min (>60) Glucose Level 104 MG/DL (74-106) Calcium Level 8.8 MG/DL (8.5-10.1) Current Medications Medications (Trade) Dose Ordered Sig/Sobia Route PRN Reason Start Time Stop Time Status Last Admin Dose Admin Acetaminophen (Tylenol) 650 mg Q6H PRN ORAL Mild Pain/Temp > 100.5 02/05/19 15:00 03/06/19 14:59 02/07/19 08:35 Acetaminophen/ Hydrocodone Bitart ([place] 10/325) 1 tab Q4H PRN ORAL Severe Pain (Pain Scale 7-10) 02/05/19 15:00 02/11/19 14:59 02/07/19 20:54 Acetaminophen/ Hydrocodone Bitart ([place] 5/325) 1 tab Q4H PRN ORAL Moderate Pain (Pain Scale 4-6) 02/05/19 15:15 02/10/19 23:14 Albuterol/ Ipratropium (Albuterol/ Ipratropium) 3 ml Q6H PRN HHN Shortness of Breath 02/05/19 15:00 02/10/19 14:59 Amiodarone HCl (Cordarone) 400 mg EVERY 8 HOURS ORAL 02/05/19 15:00 03/07/19 14:59 02/07/19 14:17 Atorvastatin Calcium (Lipitor) 20 mg BEDTIME ORAL 02/05/19 21:00 03/06/19 20:59 02/07/19 20:53 Cefazolin Sodium 1 gm/Dextrose 55 ml @ 110 mls/hr DAILY IVPB 02/06/19 10:00 02/13/19 09:59 02/08/19 09:16 Clopidogrel Bisulfate (Plavix) 75 mg DAILY ORAL 02/06/19 09:00 03/06/19 08:59 02/08/19 09:15 Diltiazem HCl (Cardizem) 30 mg EVERY 8 HOURS ORAL 02/05/19 22:00 03/07/19 13:59 02/07/19 14:17 Docusate Sodium (Colace) 100 mg DAILY ORAL 02/06/19 09:00 03/06/19 08:59 02/08/19 09:15 Donepezil HCl (Aricept) 5 mg DAILY ORAL 02/06/19 09:00 03/06/19 08:59 02/08/19 09:15 Epoetin Robert (Epoetin Robert(ESRD on dialysis)) 6,000 unit FRI-FRI-FRI SUBQ 02/05/19 21:00 03/07/19 20:59 02/05/19 20:32 Famotidine (Pepcid) 20 mg DAILY ORAL 02/06/19 09:00 03/06/19 08:59 02/08/19 09:14 Heparin Sodium (Porcine) (Heparin 5000 units/ml) 5,000 units EVERY 12 HOURS SUBQ 02/05/19 21:00 03/07/19 20:59 02/08/19 09:19 Levothyroxine Sodium (Synthroid) 25 mcg 0630 ORAL 02/06/19 06:30 03/06/19 06:29 02/07/19 06:30 Metoprolol Tartrate (Lopressor) 100 mg EVERY 12 HOURS ORAL 02/05/19 21:00 03/07/19 20:59 02/08/19 09:32 Olanzapine (ZyPREXA) 2.5 mg TID ORAL 02/05/19 18:00 03/07/19 14:29 02/08/19 09:15 Sevelamer Carbonate (Renvela) 800 mg THREE TIMES A DAY ORAL 02/05/19 18:00 03/06/19 08:59 02/08/19 09:15 Tamsulosin HCl (Flomax) 0.4 mg DAILY ORAL 02/06/19 09:00 03/06/19 08:59 02/08/19 09:14 Bladimir Moy MD Feb 08, 2019 10:59
--- NOTE | 2019-02-08 11:07 | NUR ---
CASE MANAGEMENT:REVIEW 02/08/19 SI: LINE SEPSIS. STAPH SEPSIS. AFIB 97.6 55 20 134/64 96% ON RA H/H-9.2/27.3 PLT-97 NA-131 BUN+73 CR+7.8 IS: IV ANCEF QD PLAVIX PO QD ARICEPT PO QD PEPCID PO QD FLOMAX PO QD LOPRESSOR PO Q12 : STEP DOWN UNIT DCP: INGE KRAFT PLAN: CONTINUE ANTIBIOTICS USE AVF 02/08 FOR DIALYSIS
[2019-02-08] MEDS ORDERED: Lexiscan 0.4mg/5ml syringe IV ONE (12:00)
--- NOTE | 2019-02-08 12:06 | NUR ---
RD ASSESSMENT & RECOMMENDATIONS SEE CARE ACTIVITY FOR COMPLETE ASSESSMENT DAILY ESTIMATED NEEDS: Needs based on ESRD on HD 72kg 25-30 kcals/kg 5417-4708 total kcals 1.2-1.8 g protein/kg 86-129 g total protein 20-22 mL/kg 4976-6545 total fluid mLs NUTRITION DIAGNOSIS: Increased kcal and protein needs r/t renal dysfunction as evidenced by pt w/ ESRD on HD. CURRENT DIET: Renal PO DIET RECOMMENDATIONS: RENAL DIET ADDITIONAL RECOMMENDATIONS: 1) Obtain a standing weight as able -> daily wt monitoring on HD 2) Nephrovite x 1 daily 3) Monitor renal fxn and lytes -> rec to check phos and mag (not yet checked) 4) High prot snacks in b/w meals.
--- NOTE | 2019-02-08 14:32 | Nephrology Progress Note ---
Assessment/Plan Plan [facility] sepsis - PC Dc'ed. On IV Vanco, RVR A. Fib - on Oral meds per Card. ESRD HD MWF Subjective Subjective Had HD today Objective Objective Last 24 Hour Vital Signs Date Time Temp Pulse Resp B/P (MAP) Pulse Ox O2 Delivery O2 Flow Rate FiO2 02/08/19 13:58 60 130/56 02/08/19 12:00 Room Air 02/08/19 09:32 64 134/64 02/08/19 08:00 97.6 64 20 134/64 (87) 96 02/08/19 08:00 55 02/08/19 08:00 Room Air 02/08/19 04:00 98.4 56 20 126/91 (103) 96 02/08/19 04:00 Room Air 02/08/19 04:00 55 02/08/19 00:00 98.0 54 18 113/62 (79) 96 02/08/19 00:00 Room Air 02/07/19 23:34 54 02/07/19 21:56 63 113/62 02/07/19 21:00 70 113/62 02/07/19 20:00 73 02/07/19 20:00 Room Air 02/07/19 20:00 97.7 70 18 113/62 (79) 96 02/07/19 16:00 97.5 65 19 119/60 (79) 63 02/07/19 16:00 64 Intake and Output 02/07/19 02/08/19 19:00 07:00 Intake Total 110 ml 100 ml Output Total 400 ml 0 ml Balance -290 ml 100 ml Intake Oral 100 ml IV Total 110 ml Output Urine Total 400 ml 0 ml Laboratory Tests 02/08/19 05:05: White Blood Count 4.6L, Red Blood Count 2.88L, Hemoglobin 9.2L, Hematocrit 27.3L , Mean Corpuscular Volume 95, Mean Corpuscular Hemoglobin 31.9H, Mean Corpuscular Hemoglobin Concent 33.7, Red Cell Distribution Width 13.0, Platelet Count 97L, Mean Platelet Volume 6.6, Neutrophils (%) (Auto) , Lymphocytes (%) ( Auto) , Monocytes (%) (Auto) , Eosinophils (%) (Auto) , Basophils (%) (Auto) , Differential Total Cells Counted 100, Neutrophils % (Manual) 76H, Lymphocytes % (Manual) 14L, Monocytes % (Manual) 6, Eosinophils % (Manual) 4H, Basophils % ( Manual) 0, Band Neutrophils 0, Platelet Estimate DecreasedL, Platelet Morphology Normal, Hypochromasia 2+, Anisocytosis 1+, Sodium Level 131L, Potassium Level 4.4, Chloride Level 98, Carbon Dioxide Level 25, Anion Gap 8, Blood Urea Nitrogen 73H, Creatinine 7.8H, Estimat Glomerular Filtration Rate 6.9 , Glucose Level 104, Calcium Level 8.8 Height (Feet): 5 Height (Inches): 9.00 Weight (Pounds): 156 Objective Cachectic. CV IRR +tach ~ 100. Lungs CTA Abd SNT. BS + E no CCE. CARLOS MANUEL KATRINA + Salome Gray MD Feb 08, 2019 14:31
[2019-02-08] MEDS ORDERED: OLANZapine 2.5mg tab ORAL SCH (18:00)
[2019-02-08] MEDS ORDERED: Albuterol/Ipratropium 3ml neb HHN PRN (18:00)
--- NOTE | 2019-02-08 18:10 | NUR ---
watchingTV no c/o sb58/m on scope ,tolerate RA well NO DISTRESS OBSERVED TRANSFERRED TO ROOM 219-2 REPOT GIVEN TO NINA FLOWERS
--- NOTE | 2019-02-08 18:32 | NUR ---
NURSE NOTES: Received report from KRISTIE Garza. Patient in bed resting, no active s/s cardiac, respiratory distress noticed at this time. Patient AOx4, SB with HR 67, on room air. IV on right FA 22G, asymptomatic, patent, intact. Left upper arm AV fistula present bruit and thrill. Endorsed HD done on today 2.5L, cancelled stress test today, no new order at this time. Bed in lowest position, side rails upsx2, call light within reach. Will continue to monitor.
[2019-02-08] MEDS ORDERED: HYDROcodone/Acetamin 10/325 tab ORAL PRN (19:00)
--- NOTE | 2019-02-08 19:14 | NUR ---
HAND-OFF: Report given to KRISTIE Kim.
[2019-02-08] MEDS ORDERED: HYDROcodone/Acetamin 5/325 tab ORAL PRN (19:15)
--- NOTE | 2019-02-08 19:15 | NUR ---
NURSE NOTES: Got report from Kamlesh FLOWERS. Pt in stable condition. Denies any pain. No s/s of distress or discomfort noted. Pt resting in bed comfortably. Bed in low and locked position, call light within reach, bedside table within reach. Continue to monitor.
--- NOTE | 2019-02-08 20:01 | Cardiology Progress Note ---
Assessment/Plan Assessment/Plan 1. Elevated troponin level, possible NSTEMI type II, chest pain free at this time, could be trop leak due to renal failure. Continue Plavix, Lipitor, and Toprol XL. Given severe LV systolic dysfunction would have to proceed with left heart cath and coronary angiography, CM notified to transfer to [facility]. Will discuss with Dr. Kim. 2. Hypertension, continue losartan, Norvasc and Toprol-XL. 3. Hyperlipidemia, on Lipitor. 4. Status post [employer] subcutaneous ICD. 5. End-stage renal disease, on hemodialysis. 6. Severe cardiomyopathy with LVEF at 30%, WMA, involving all the LV wall segments except the basal segments (? Takotsubo CM), continue losartan and metoprolol. 7. PAF, now in SR, he requires to on anticoag therapy. Subjective Subjective Sinus bradycardia with at rate of 59. Objective Last 24 Hour Vital Signs Date Time Temp Pulse Resp B/P (MAP) Pulse Ox O2 Delivery O2 Flow Rate FiO2 02/08/19 16:00 98.6 57 18 128/59 (82) 95 02/08/19 16:00 Room Air 02/08/19 16:00 58 02/08/19 13:58 60 130/56 02/08/19 12:05 97.9 60 20 130/55 (80) 97 02/08/19 12:00 97.9 60 130/55 (80) 02/08/19 12:00 58 02/08/19 12:00 Room Air 02/08/19 09:32 64 134/64 02/08/19 08:00 97.6 64 20 134/64 (87) 96 02/08/19 08:00 55 02/08/19 08:00 Room Air 02/08/19 04:00 98.4 56 20 126/91 (103) 96 02/08/19 04:00 Room Air 02/08/19 04:00 55 02/08/19 00:00 98.0 54 18 113/62 (79) 96 02/08/19 00:00 Room Air 02/07/19 23:34 54 02/07/19 21:56 63 113/62 02/07/19 21:00 70 113/62 02/07/19 20:00 73 02/07/19 20:00 Room Air 02/07/19 20:00 97.7 70 18 113/62 (79) 96 Intake and Output 02/07/19 02/08/19 19:00 07:00 Intake Total 110 ml 100 ml Output Total 400 ml 0 ml Balance -290 ml 100 ml Intake Oral 100 ml IV Total 110 ml Output Urine Total 400 ml 0 ml 2D Echo: LVEF 45% with WMA, Grade I LVDD, Mild MR, RVSP 45 mmHg Laboratory Tests Test 02/08/19 05:05 White Blood Count 4.6 K/UL (4.8-10.8) L Red Blood Count 2.88 M/UL (4.70-6.10) L Hemoglobin 9.2 G/DL (14.2-18.0) L Hematocrit 27.3 % (42.0-52.0) L Mean Corpuscular Volume 95 FL (80-99) Mean Corpuscular Hemoglobin 31.9 PG (27.0-31.0) H Mean Corpuscular Hemoglobin Concent 33.7 G/DL (32.0-36.0) Red Cell Distribution Width 13.0 % (11.6-14.8) Platelet Count 97 K/UL (150-450) L Mean Platelet Volume 6.6 FL (6.5-10.1) Neutrophils (%) (Auto) % (45.0-75.0) Lymphocytes (%) (Auto) % (20.0-45.0) Monocytes (%) (Auto) % (1.0-10.0) Eosinophils (%) (Auto) % (0.0-3.0) Basophils (%) (Auto) % (0.0-2.0) Differential Total Cells Counted 100 Neutrophils % (Manual) 76 % (45-75) H Lymphocytes % (Manual) 14 % (20-45) L Monocytes % (Manual) 6 % (1-10) Eosinophils % (Manual) 4 % (0-3) H Basophils % (Manual) 0 % (0-2) Band Neutrophils 0 % (0-8) Platelet Estimate Decreased L Platelet Morphology Normal Hypochromasia 2+ Anisocytosis 1+ Sodium Level 131 MMOL/L (136-145) L Potassium Level 4.4 MMOL/L (3.5-5.1) Chloride Level 98 MMOL/L (98-107) Carbon Dioxide Level 25 MMOL/L (21-32) Anion Gap 8 mmol/L (5-15) Blood Urea Nitrogen 73 mg/dL (7-18) H Creatinine 7.8 MG/DL (0.55-1.30) H Estimat Glomerular Filtration Rate 6.9 mL/min (>60) Glucose Level 104 MG/DL (74-106) Calcium Level 8.8 MG/DL (8.5-10.1) Microbiology Date/Time Source Procedure Growth Status 02/06/19 12:20 Blood Blood Culture - Preliminary Staphylococcus Species Resulted Objective HEAD AND NECK: Shows no JVD. LUNGS: Coarse rhonchi. CARDIOVASCULAR: regular rate and rhythm, normal S1 and S2 with no gallops, rubs or murmur. ABDOMEN: Soft and nontender. EXTREMITIES: No pitting edema. Defibrillator placed under left axillary line, PermCath in the right chest. Royer Mckenzie MD Feb 08, 2019 20:01
[2019-02-08] MEDS ORDERED: Atorvastatin 20mg tab ORAL SCH (21:00)
[2019-02-08] MEDS ORDERED: Epoetin Alfa-EPBX(ESRD on dialysis)3000 units/ml vial SUBQ SCH (21:00)
[2019-02-08] MEDS: Aspirin EC 81mg tab ORAL SCH (21:51)
[2019-02-08] MEDS ORDERED: Amiodarone 200mg tab ORAL SCH (22:00)
--- NOTE | 2019-02-08 22:19 | Psych Consult Progress Note ---
Psychiatry Progress Note Psychiatry Progress Note Medications Current Medications Medications (Trade) Dose Ordered Sig/Sobia Route PRN Reason Start Time Stop Time Status Last Admin Dose Admin Acetaminophen (Tylenol) 650 mg Q6H PRN ORAL Mild Pain/Temp > 100.5 02/08/19 18:00 03/06/19 17:59 Acetaminophen/ Hydrocodone Bitart ([place] 10/325) 1 tab Q4H PRN ORAL Severe Pain (Pain Scale 7-10) 02/08/19 19:00 02/11/19 14:59 Acetaminophen/ Hydrocodone Bitart ([place] 5/325) 1 tab Q4H PRN ORAL Moderate Pain (Pain Scale 4-6) 02/08/19 19:15 02/10/19 23:14 Albuterol/ Ipratropium (Albuterol/ Ipratropium) 3 ml Q6H PRN HHN Shortness of Breath 02/08/19 18:00 02/10/19 17:59 Amiodarone HCl (Cordarone) 200 mg DAILY ORAL 02/09/19 09:00 03/11/19 08:59 Aspirin (Ecotrin) 81 mg DAILY ORAL 02/08/19 20:00 03/10/19 19:59 02/08/19 21:51 Atorvastatin Calcium (Lipitor) 20 mg BEDTIME ORAL 02/08/19 21:00 03/06/19 20:59 02/08/19 21:51 Cefazolin Sodium 1 gm/Dextrose 55 ml @ 110 mls/hr DAILY IVPB 02/09/19 09:00 02/13/19 09:59 Clopidogrel Bisulfate (Plavix) 75 mg DAILY ORAL 02/09/19 09:00 03/06/19 08:59 Diltiazem HCl (Cardizem) 30 mg EVERY 8 HOURS ORAL 02/08/19 22:00 03/07/19 13:59 02/08/19 21:50 Docusate Sodium (Colace) 100 mg DAILY ORAL 02/09/19 09:00 03/06/19 08:59 Donepezil HCl (Aricept) 5 mg DAILY ORAL 02/09/19 09:00 03/06/19 08:59 Epoetin Robert (Epoetin Robert(ESRD on dialysis)) 6,000 unit FRI-FRI-FRI SUBQ 02/08/19 21:00 03/07/19 20:59 02/08/19 21:58 Famotidine (Pepcid) 20 mg DAILY ORAL 02/09/19 09:00 03/06/19 08:59 Heparin Sodium (Porcine) (Heparin 5000 units/ml) 5,000 units EVERY 12 HOURS SUBQ 02/08/19 21:00 03/07/19 20:59 02/08/19 21:53 Levothyroxine Sodium (Synthroid) 25 mcg 0630 ORAL 02/09/19 06:30 03/06/19 06:29 Metoprolol Tartrate (Lopressor) 100 mg EVERY 12 HOURS ORAL 02/08/19 21:00 03/07/19 20:59 02/08/19 21:51 Olanzapine (ZyPREXA) 2.5 mg TID ORAL 02/09/19 09:00 03/11/19 08:59 Sevelamer Carbonate (Renvela) 800 mg THREE TIMES A DAY ORAL 02/09/19 09:00 03/11/19 08:59 Tamsulosin HCl (Flomax) 0.4 mg DAILY ORAL 02/09/19 09:00 03/06/19 08:59 Neurological/Psychiatric: Reports: anxiety Allergies: Coded Allergies: No Known Allergies (Unverified , 06/11/18) Objective Data Height (Feet): 5 Height (Inches): 9.00 Weight (Pounds): 156 General Appearance: no apparent distress, alert, alert oriented x3 Appearance: well groomed Behavior Mannerisms: good eye contact Mental Status Exam - Affect: constricted Mental Status Exam - Mood: anxious Mental Status Exam - Thought P: illogical Mental Status Exam - Cognition: no abnormalities Assessment/Plan Problem List: (1) Anxiety disorder ICD Codes: F41.9 - Anxiety disorder, unspecified SNOMED: 214727526 (2) MDD (major depressive disorder), recurrent episode ICD Codes: F33.9 - Major depressive disorder, recurrent, unspecified SNOMED: 139440414 Assessment/Plan: Schizophrenia. . PLAN: 1. We will continue Zyprexa. 2. provided ro/Myesha Kelly MD Feb 08, 2019 22:19
[2019-02-09] VITALS: BP 133/66
[2019-02-09 04:00] VITALS: BP 136/60
[2019-02-09] MEDS: dilTIAZem HCl 30mg tab ORAL SCH ×2 (06:00→13:19)
[2019-02-09] MEDS ORDERED: Levothyroxine 25mcg tab ORAL SCH (06:30)
--- NOTE | 2019-02-09 07:10 | NUR ---
NURSE NOTES: HANDOFF RECEIVED FROM KRISTIE PRYOR. PATIENT RECEIVED AWAKE AND ALERT AND RESTING IN BED, PATIENT DENIES ANY PAIN, NO ACUTE SIGNS OF DISTRESS NOTED. IV SITE IS CLEAN DRY AND INTACT, SALINE LOCKED. BED IN THE LOW AND LOCKED POSITION, BED ALARM ON AND CALL LIGHT WITHIN REACH. WILL CONTINUE TO MONITOR.
--- NOTE | 2019-02-09 07:40 | NUR ---
HAND-OFF: Report given to Boo FLOWERS.
[2019-02-09 08:00] VITALS: BP 130/65
--- NOTE | 2019-02-09 08:44 | NUR ---
NURSE NOTES: CONTACTED DR FERRERA TO CONFIRM IT'S OK TO GIVE HEPARIN PATIENTS PLATELETS ARE LOW. CONFIRMED IT'S OK.
[2019-02-09] MEDS ORDERED: Tamsulosin 0.4mg cap ORAL SCH (09:00)
[2019-02-09] MEDS ORDERED: Donepezil 5mg Tab ORAL SCH (09:00)
[2019-02-09] MEDS ORDERED: Docusate 100mg/10ml Liq ORAL SCH (09:00)
[2019-02-09] MEDS ORDERED: Amiodarone 200mg tab ORAL SCH (09:00)
[2019-02-09] MEDS ORDERED: ceFAZolin sod 1 GM in D5W 55 ML IVPB SCH (09:00)
[2019-02-09] MEDS: Metoprolol Tartrate 100mg tab ORAL SCH (09:15)
[2019-02-09] MEDS: OLANZapine 2.5mg tab ORAL SCH ×3 (09:16→17:33)
[2019-02-09] MEDS: Aspirin EC 81mg tab ORAL SCH (09:16)
[2019-02-09] MEDS: Heparin 5000 units/ml inj SUBQ SCH (09:22)
--- NOTE | 2019-02-09 10:26 | Infectious Diseases Prog Note ---
Assessment/Plan Assessment/Plan antibiotics : ancef A 1. staph aureus sepsis s/p catheter removal 2. renal failure on HD 3, hypertension 4. cardiomyopathy P 1. continue ancef 2. will follow up cultures 3. 2 d echo pending Subjective Constitutional: Denies: fever, chills Respiratory: Denies: shortness of breath, dry cough Gastrointestinal/Abdominal: Denies: nausea, vomiting, diarrhea Musculoskeletal: Denies: pain Allergies: Coded Allergies: No Known Allergies (Unverified , 06/11/18) Objective Vital Signs Last 24 Hour Vital Signs Date Time Temp Pulse Resp B/P (MAP) Pulse Ox O2 Delivery O2 Flow Rate FiO2 02/09/19 09:15 63 130/65 02/09/19 08:00 98.3 63 18 130/65 (86) 96 02/09/19 08:00 Room Air 02/09/19 06:00 60 136/60 02/09/19 04:02 Room Air 02/09/19 04:00 98.1 59 17 136/60 (85) 95 02/09/19 04:00 54 02/09/19 00:04 Room Air 02/09/19 00:00 58 02/09/19 00:00 98.2 55 18 133/66 (88) 97 02/08/19 21:51 60 130/60 02/08/19 21:50 60 130/60 02/08/19 20:00 97.9 60 19 130/58 (82) 95 02/08/19 20:00 57 02/08/19 20:00 Room Air 02/08/19 16:00 98.6 57 18 128/59 (82) 95 02/08/19 16:00 Room Air 02/08/19 16:00 58 02/08/19 13:58 60 130/56 02/08/19 12:05 97.9 60 20 130/55 (80) 97 02/08/19 12:00 97.9 60 130/55 (80) 02/08/19 12:00 58 02/08/19 12:00 Room Air Height (Feet): 5 Height (Inches): 9.00 Weight (Pounds): 156 Respiratory/Chest: lungs clear Cardiovascular: normal rate, regular rhythm, no gallop/murmur Abdomen: soft, non tender Extremities: no edema Microbiology Date/Time Source Procedure Growth Status 02/06/19 12:20 Blood Blood Culture - Final Staphylococcus Aureus Complete Current Medications Medications (Trade) Dose Ordered Sig/Sobia Route PRN Reason Start Time Stop Time Status Last Admin Dose Admin Acetaminophen (Tylenol) 650 mg Q6H PRN ORAL Mild Pain/Temp > 100.5 02/08/19 18:00 03/06/19 17:59 Acetaminophen/ Hydrocodone Bitart ([place] 10/325) 1 tab Q4H PRN ORAL Severe Pain (Pain Scale 7-10) 02/08/19 19:00 02/11/19 14:59 02/09/19 09:25 Acetaminophen/ Hydrocodone Bitart ([place] 5/325) 1 tab Q4H PRN ORAL Moderate Pain (Pain Scale 4-6) 02/08/19 19:15 02/10/19 23:14 Albuterol/ Ipratropium (Albuterol/ Ipratropium) 3 ml Q6H PRN HHN Shortness of Breath 02/08/19 18:00 02/10/19 17:59 Amiodarone HCl (Cordarone) 200 mg DAILY ORAL 02/09/19 09:00 03/11/19 08:59 02/09/19 09:15 Aspirin (Ecotrin) 81 mg DAILY ORAL 02/08/19 20:00 03/10/19 19:59 02/09/19 09:16 Atorvastatin Calcium (Lipitor) 20 mg BEDTIME ORAL 02/08/19 21:00 03/06/19 20:59 02/08/19 21:51 Cefazolin Sodium 1 gm/Dextrose 55 ml @ 110 mls/hr DAILY IVPB 02/09/19 09:00 02/13/19 09:59 02/09/19 09:12 Clopidogrel Bisulfate (Plavix) 75 mg DAILY ORAL 02/09/19 09:00 03/06/19 08:59 02/09/19 09:16 Diltiazem HCl (Cardizem) 30 mg EVERY 8 HOURS ORAL 02/08/19 22:00 03/07/19 13:59 02/09/19 06:00 Docusate Sodium (Colace) 100 mg DAILY ORAL 02/09/19 09:00 03/06/19 08:59 02/09/19 09:14 Donepezil HCl (Aricept) 5 mg DAILY ORAL 02/09/19 09:00 03/06/19 08:59 02/09/19 09:16 Epoetin Robert (Epoetin Robert(ESRD on dialysis)) 6,000 unit FRI- SUBQ 02/08/19 21:00 03/07/19 20:59 02/08/19 21:58 Famotidine (Pepcid) 20 mg DAILY ORAL 02/09/19 09:00 03/06/19 08:59 02/09/19 09:15 Heparin Sodium (Porcine) (Heparin 5000 units/ml) 5,000 units EVERY 12 HOURS SUBQ 02/08/19 21:00 03/07/19 20:59 02/09/19 09:22 Levothyroxine Sodium (Synthroid) 25 mcg 0630 ORAL 02/09/19 06:30 03/06/19 06:29 02/09/19 06:00 Metoprolol Tartrate (Lopressor) 100 mg EVERY 12 HOURS ORAL 02/08/19 21:00 03/07/19 20:59 02/09/19 09:15 Olanzapine (ZyPREXA) 2.5 mg TID ORAL 02/09/19 09:00 03/11/19 08:59 02/09/19 09:16 Sevelamer Carbonate (Renvela) 800 mg THREE TIMES A DAY ORAL 02/09/19 09:00 03/11/19 08:59 02/09/19 09:15 Tamsulosin HCl (Flomax) 0.4 mg DAILY ORAL 02/09/19 09:00 03/06/19 08:59 02/09/19 09:15 Bladimir Moy MD Feb 09, 2019 10:26
[2019-02-09 12:00] VITALS: BP 121/57
--- NOTE | 2019-02-09 12:02 | NUR ---
[facility] RE[facility] SI; LINE SEPSIS, S/P REMOVAL OF ISRRAEL CATH T. 98.1 HR 63 RR 18 B/P 136/60 IS: CEFAZOLIN IV PLAVIX PO LOPRESSOR PO 2 D ECHO PENDING TELE STATUS
--- NOTE | 2019-02-09 14:22 | Nephrology Progress Note ---
Assessment/Plan Plan Staph sepsis - PC Dc'ed. On IV Vanco, RVR A. Fib - on Oral meds per Card. ESRD HD MWF. DC to B+c. Med Lis Called To Rx Subjective Subjective Confused Objective Objective Last 24 Hour Vital Signs Date Time Temp Pulse Resp B/P (MAP) Pulse Ox O2 Delivery O2 Flow Rate FiO2 02/09/19 13:19 47 121/57 02/09/19 12:00 47 02/09/19 12:00 97.5 47 18 121/57 (78) 93 02/09/19 09:55 98.3 02/09/19 09:15 63 130/65 02/09/19 08:00 98.3 63 18 130/65 (86) 96 02/09/19 08:00 57 02/09/19 08:00 Room Air 02/09/19 06:00 60 136/60 02/09/19 04:02 Room Air 02/09/19 04:00 98.1 59 17 136/60 (85) 95 02/09/19 04:00 54 02/09/19 00:04 Room Air 02/09/19 00:00 58 02/09/19 00:00 98.2 55 18 133/66 (88) 97 02/08/19 21:51 60 130/60 02/08/19 21:50 60 130/60 02/08/19 20:00 97.9 60 19 130/58 (82) 95 02/08/19 20:00 57 02/08/19 20:00 Room Air 02/08/19 16:00 98.6 57 18 128/59 (82) 95 02/08/19 16:00 Room Air 02/08/19 16:00 58 Intake and Output 02/08/19 02/09/19 19:00 07:00 Intake Total 460 ml Output Total 2600 ml Balance -2140 ml Intake Oral 460 ml Output Urine Total 100 ml Hemodialysis UF 2500 ml # Bowel Movements 1 Height (Feet): 5 Height (Inches): 9.00 Weight (Pounds): 156 Objective Cachectic. CV IRR +tach ~ 100. Lungs CTA Abd SNT. BS + E no CCE. CARLOS MANUEL AVF + bruit Salome Kim MD Feb 09, 2019 14:22
[2019-02-09] MEDS ORDERED: OLANZAPINE2.5 MG ORAL (14:25)
[2019-02-09] MEDS ORDERED: RENVELA800 MG ORAL (14:25)
[2019-02-09 16:00] VITALS: BP 128/64
--- NOTE | 2019-02-09 18:30 | Progress Note ---
DATE: 02/09/2019 SUBJECTIVE: The patient is in bed, asleep. The patient is in no acute distress, calm. Able to answer the questions more appropriately. Decreased agitation. MENTAL STATUS EXAMINATION: Alert and oriented times self and place. Mood is neutral to anxious. Affect is flat. Thought process is concrete. Thought content, no suicidal or homicidal ideation. ASSESSMENT: 1. Acute encephalopathy, improved. 2. Psychotic disorder. PLAN: 1. We will continue the Zyprexa. 2. Provide the patient with reality orientation and supportive therapy. Myesha Pedraza M.D. DR: NADIR JOB#: [id number] CC:
--- NOTE | 2019-02-09 19:55 | NUR ---
HAND-OFF: Report given to KRISTIE TATUM.
--- NOTE | 2019-02-09 20:01 | NUR ---
NURSE NOTES: Received report from KRISTIE Haddad. Patient is awake sitting chairfast. No signs of acute distress noted; denies pain at this time. AOx4; able to make needs known. Ambulates with some supervision. No IV site noted as patient is getting ready for discharge to [facility]. Left upper arm AV fistula noted; thrill and bruit present. Patient swabbed for MRSA per protocol prior to discharge. Bed at lowest position, brakes on, siderails up x2. Call light within reach. Will continue to monitor.
--- NOTE | 2019-02-09 20:05 | NUR ---
NURSE NOTES: Patient was discharged to [facility] via taxi accompanied by primary RN without incident. Vital signs stable upon discharge. Patient already taken off Tele box and d/c'ed from IV site during morning shift. No signs of acute distress noted; denies pain at this time. Belongings list checked. Taxi voucher provided to shuttle truck driver. Johnny Hackett, patient's son, notified of discharge status.
--- NOTE | 2019-02-11 13:35 | Discharge Summary ---
Discharge Summary Discharge Summary _ DATE OF ADMISSION: 02/03/2019 DATE OF DISCHARGE: 02/09/2019 DISCHARGED BY: Dr. Kim REASON FOR ADMISSION: 68 years old male with past medical history of end-stage renal disease, on hemodialysis, hypertensive cardiovascular disease, status post AICD, chronic kidney disease, had fever during dialysis. Nursing staff was instructed to send patient to the hospital to rule out infected Port-a-Cath. However due to transportation issues, patient was sent back to his [facility] facility, where he resides. However, patient subsequently sent to emergency room due to chest pain. Upon evaluation patient was febrile with temperature one 101.5 ; pulse oximetry was 98% on 2 L , blood pressure was 152/68. Laboratory work-up revealed no leukocytosis , hemoglobin 10.8 , hematocrit 29.5 , platelet count 84. Lactic acid 1.4. Stable electrolytes. BUN 36, creatinine 6.2, consistent with known history of end-stage renal disease. Stable LFT. Troponin elevated at 0.781, pro BNP over 35,000. EKG revealed sinus rhythm with nonspecific ST changes , similar to previous EKG. Chest x-ray demonstrated pulmonary vascular congestion/interstitial pulmonary edema. Patient pancultured and admitted to telemetry floor for further management. CONSULTANTS: resource management planner Dr. Mckenzie vascular surgeon Dr. Arriola ID specialist Dr. Vega psychiatrist [facility] COURSE: Patient admitted to telemetry floor. Blood culture revealed Staph aureus. Subsequently Port-a -Cath was discontinued on 02/04 by interventional radiology. Antibiotics provided as per ID specialist recommendation. Culture tip of removed Port-A-Cath also showed Staph aureus. Repeated blood culture on revealed Staph aureus . Echocardiogram demonstrated apical and distal inferior, anteroseptal and inferior septal hypokinesis. Left ejection fraction estimated to be 45%. Mild left ventricular hypertrophy. Right ventricular systolic pressure of 45, consistent with moderate pulmonary hypertension. No evidence of vegetation. Repeated blood culture on 02/08 were negative. Patient will need to complete antibiotics at the [facility] and Care as per ID specialist recommendation. Vascular surgeon seen and evaluated patient Patient had a functional left arm arteriovenous shunt . Vascular surgeon recommended continue hemodialysis via left arm AV shunt. Hemodialysis provided as per honing machine operator semiautomatic with close monitoring of volumes , renal parameters and electrolytes. Patient had elevated troponin initially , repeated troponin was still elevated. Per resource management planner, patient possibly had NSTEMI type II. Patient was free of chest pain. However could be troponin leak due to renal failure. Patient was continued on beta blockage, antiplatelet therapy with Plavix and statin. Given severe left ventricular systolic dysfunction, resource management planner recommended to proceed with left heart catheterization and coronary angiogram. Blood pressure was managed with angiotensin receptor katey , calcium channel katey and beta-katey. Lipid panel was stable. Guideline directed medical therapy for cardiomyopathy continued with beta blockage and angiotensin receptor katey. Patient demonstrated paroxysmal atrial fibrillation, spontaneously converted to sinus rhythm. No need for anticoagulation as per resource management planner. Psychiatrist followed. Per psychiatrist, patient had acute encephalopathy and psychotic disorder. Psychiatric medication regimen was optimized. Reality orientation and supportive therapy provided. Patient clinically stabilized and was ready for discharge back to [facility] for continuation of care. Prescription were called to the pharmacy. FINAL DIAGNOSES: Staph aureus sepsis secondary to infected Port-A-Cath Status post Port-A-Cath removal Paroxysmal atrial fibrillation End-stage renal disease, on hemodialysis Elevated troponin level, possible NSTEMI type II versus troponin leak due to renal failure Cardiomyopathy Hypertension Hyperlipidemia Status post [employer] ICD placement Acute encephalopathy-improved Psychotic disorder DISCHARGE MEDICATIONS: See Medication Reconciliation list. DISCHARGE INSTRUCTIONS: Patient was discharged to [facility] care. Follow-up with primary care provider in 1 week. Follow-up with outpatient hemodialysis as scheduled. I have been assigned to dictate discharge summary for this account. I was not involved in the patient's management. Aziza Cartagena NP Feb 11, 2019 13:35
--- NOTE | 2019-02-12 11:40 | Cardiology Report ---
APPROVED REPORT EXAM: Two-dimensional and M-mode echocardiogram with Doppler and color Doppler. INDICATION Congestive Heart Failure M-Mode DIMENSIONS IVSd1.2 (0.7-1.1cm)Left Atrium (MM)4.0 (1.6-4.0cm) LVDd5.9 (3.5-5.6cm)Aortic Root3.3 (2.0-3.7cm) PWd1.6 (0.7-1.1cm)Aortic Cusp Exc.2.0 (1.5-2.0cm) IVSs1.8 cmEPSS1.2 (>1.0cm) LVDs4.3 (2.5-4.0cm) PWs1.7 cm <Conclusion> Left ventricle chamber size at upper limits of normal. Apical and mid to distal inferior, anteroseptal and inferoseptal hypokinesis. Left ventricular ejection fraction estimated to be 35 %. Increased E point-interventricular septal separation c/w left ventricular dysfunction. Mild left ventricular hypertrophy. Anterior Echo-free space, may be due to pericardial fat or effusion. Mild bi-atrial enlargement. Mild right ventricular enlargement. Focal aortic valve sclerosis with adequate cusp excursion. Thickened mitral valve leaflets with normal excursion. Mitral annulus and aortic root calcification. Normal pulmonic valve structure. Normal tricuspid valve structure. IVC dilated at 2.4 cm with physiologic collapse suggestive of increased RA pressure. A color flow and spectral Doppler study was performed and revealed: No aortic regurgitation. Mild mitral regurgitation. Mitral diastolic velocities suggest reduced left ventricular relaxation c/w mild LV diastolic dysfunction (Grade I ). Mild tricuspid regurgitation. Tricuspid systolic velocities suggests peak right ventricular systolic pressure of 45 mmHg consistent with moderate pulmonary hypertension. Mild pulmonic regurgitation present.
--- NOTE | 2019-02-15 00:45 | Consultation ---
DATE OF CONSULTATION: 02/14/2019 VASCULAR SURGERY CONSULTATION CONSULTING PHYSICIAN: Mateo Arriola M.D. REFERRING PHYSICIAN: Salome Kim M.D. REASON FOR CONSULTATION: Left arm shunt evaluation. HISTORY OF PRESENT ILLNESS: This is a 68-year-old male, presents with wound infection, sepsis, and the patient permcatheter was removed. The patient has left _AV shunt which is functional, on dialysis. Vascular Surgery is consulted for further evaluation. PAST MEDICAL HISTORY: As above. ESRD, hypertension, sepsis ALLERGIES: No known drug allergies. SOCIAL HISTORY: Unremarkable. FAMILY HISTORY: Unremarkable. PHYSICAL EXAMINATION: GENERAL: The patient is awake, alert, afebrile with stable vitals HR 70 BP 159/ 60 RR 12 The patient has palpable radial pulses. Intact left arm av shunt has a palpable thrill. LUNGS: Clear to auscultation. HEART: Regular rate and rhythm. ABDOMEN: Soft and nontender. EXTREMITIES: Palpable femoral and pedal pulses bilaterally. IMPRESSION: Hx of infection, placed on antibiotics and s/p permcath removal Recommendations: HD via left arm AV shunt. Antibiotic per ID. The patient will require followup evaluation. Mateo Arriola M.D. DR: JAIRON JOB#: [id number] CC: ORTIZ
--- NOTE | 2019-02-16 14:14 | Cardiology Report ---
APPROVED REPORT EKG Measurement Heart [id number] <Conclusion> Atrial fibrillation with rapid ventricular response Left axis deviation Anterior infarct, age undetermined ST & T wave abnormality, consider lateral ischemia Abnormal ECG
--- NOTE | 2019-02-17 17:49 | Diagnostic Imaging Report ---
APPROVED REPORT CPT Code: 60796 Present Symptoms Comments: hemodialysis access <Conclusion> LEFT UPPER EXTREMITY: Imaging reveals patency of the internal jugular, subclavian, axillary and brachial veins. The cephalic and basilic veins are also patent. Doppler indicates normal spontaneous flow within left upper extremity venous segment. Imaging also reveals patency of the arterio-venous fistula, the radial artery to the cephalic vein, at the forearm level. There is no significant stenosis seen at the anatomosis and inflow artery. The venous outflow is widely patent. Brachial artery (Proximal to the anatomosis): 0.68 cm 164 cm/s. Anastomosis: 0.84 cm, 356 cm/s. Radial artery (Distal to the anatomosis): 0.36 cm, 99 cm/s.
== END 2019-02-09 20:05 | disposition home or self-care (01) | DRG 280 ==
LOC: EDBD 18:12 → EMR 18:56 → 2E 19:12 → EDBEDREQ 20:16 → ICU 02-05 12:00 → 2W 02-05 13:19 → 2E 02-08 18:37
DX: T80.211A Bloodstream infection due to central venous catheter, initial encounter (principal); A41.01 Sepsis due to Methicillin susceptible Staphylococcus aureus; I21.A1 Myocardial infarction type 2; N18.6 End stage renal disease; F03.91 Unspecified dementia, unspecified severity, with behavioral disturbance; I42.9 Cardiomyopathy, unspecified; G93.40 Encephalopathy, unspecified; I13.11 Hypertensive heart and chronic kidney disease without heart failure, with stage 5 chronic kidney disease, or end stage renal disease; F17.200 Nicotine dependence, unspecified, uncomplicated; Z79.02 Long term (current) use of antithrombotics/antiplatelets; E03.9 Hypothyroidism, unspecified; Z95.810 Presence of automatic (implantable) cardiac defibrillator; I48.0 Paroxysmal atrial fibrillation; F03.90 Unspecified dementia, unspecified severity, without behavioral disturbance, psychotic disturbance, mood disturbance, and anxiety; F20.9 Schizophrenia, unspecified; Z99.2 Dependence on renal dialysis; J44.9 Chronic obstructive pulmonary disease, unspecified; F29 Unspecified psychosis not due to a substance or known physiological condition; I27.20 Pulmonary hypertension, unspecified
CPT/HCPCS: 36415; 36590; 71045; 80048; 80053; 80202; 83605; 83690; 83880; 84484; 85007; 85025; 85610; 85730; 87040; 87070; 87081; 87181; 93005; 93306; 93990; 96372; 99285; J2785; J7620